=== PATIENT | female | born 1990 | race Caucasian/White ===

== ENCOUNTER → 2016-08-11 | Outpatient (CLI) | payer OTHER ==
--- NOTE | 2016-08-11 16:39 | US ---
EXAMINATION TYPE: US transvaginal DATE OF EXAM: 08/11/2016 4:25 PM COMPARISON: No previous CLINICAL HISTORY: Abnormal uterine bleeding N93.9. Tubal ligation 2 years ago, intermittent pelvic pa in since then, heavy periods, patient on control, 6, para 4, miscarriage 2 TECHNIQUE: Transvaginal (TV) Date of LMP: 2 weeks ago - patient unsure of exact date EXAM MEASUREMENTS: Uterus: 9.5 x 4.9 x 6.0 cm Endometrial Stripe: 0.8 cm Right Ovary: 3.0 x 1.9 x 2.1 cm Left Ovary: not seen TECHNOLOGIST IMPRESSION: 1. Uterus: retroverted, slightly heterogeneous without any definite lesions seen at this time 2. Endometrium: Appears slightly thickened for LMP 2 weeks ago - patient unsure of exact date, small amount of fluid in endocervical canal 3. Right Ovary: cystic adnexal mass possible ovarian cyst 4. Left Ovary: not seen due to overlying bowel gas 5. Bilateral Adnexa: right adnexa: 4.8 x 3.2 x 3.4cm cystic area - ? right ovarian cyst vs. adnexal mass 6. Posterior cul-de-sac: small amount of free fluid seen Small amount of fluid is seen in the endocervical canal on initial images. Uterus is retroverted in s hape. Uterus is heterogeneous in appearance. Endometrium is not well visualized due to heterogeneity and retroverted appearance, it is not accurately measured on current study on images saved. Tiny amou nt of free fluid is seen in pelvis, nonspecific finding on last image may be physiologic. Left ovary is not clearly identified. Right ovary is seen. Small peripheral follicles are scattered t hroughout right ovary. Adjacent to right ovary there is 4.8 cm oval anechoic lesion felt to reflect s imple small paraovarian cyst. IMPRESSION: Suboptimal study, endometrium is not well seen but but is felt possibly thickened on imag es saved. There is 4.8 cm right adnexal suspect simple paraovarian cyst noted.
--- NOTE | 2016-08-11 16:41 | XR ---
EXAMINATION TYPE: XR abdomen 2V DATE OF EXAM: 08/11/2016 4:36 PM CLINICAL HISTORY: Left lower quadrant pain. TECHNIQUE: Supine and upright views of the abdomen are obtained. COMPARISON: None. FINDINGS: Scattered gas is seen in non-distended small bowel loops. Gas and fecal material is seen in non-distended colon. Tubal ligation clips overlie the bilateral pelvis. No pneumoperitoneum is see n. There is dextroconvex scoliotic curvature centered in the mid lumbar spine. Spina bifida defect L5 level is present. Lung bases are clear. IMPRESSION: Overall nonobstructive bowel gas pattern.
== END | disposition home or self-care (01) ==
LOC: RADUSMAIN 15:55
PROVIDERS: ATTEND Obstetrics & Gynecology Obstetrics
DX: N93.9 Abnormal uterine and vaginal bleeding, unspecified (principal); R10.2 Pelvic and perineal pain; R10.9 Unspecified abdominal pain
CPT/HCPCS: 74020; 76830

== ENCOUNTER → 2016-10-21 | Outpatient (CLI) | payer OTHER ==
--- NOTE | 2016-10-21 21:38 | MR ---
EXAMINATION TYPE: MR florecita/thompson wo con DATE OF EXAM: 10/21/2016 9:25 PM COMPARISON: NONE HISTORY: spina bifida, back pain CONTRAST: Performed utilizing 0 mL intravenous MultiHance gadolinium contrast. TECHNIQUE: Multiplanar multiecho imaging on a 3.0 Jyoti magnet is performed through the cervical spin e. FINDINGS: The craniovertebral junction is normal. Vertebral body alignment is normal. Some disc de siccation is present C2-C3, C3-4 due to mild degree C4-5. Disc heights appear preserved. Alignment is normal. C7-T1: No focal disc herniation or significant disc bulge is evident. No spinal canal stenosis or n eural foraminal stenosis is present. C6-7: No focal disc herniation or significant disc bulge is evident. No spinal canal stenosis or naif ral foraminal stenosis is present. C5-6: No focal disc herniation or significant disc bulge is evident. Mild uncovertebral joint hypertr ophy is present with moderate foraminal narrowing slightly greater on the left.. C4-5: No focal disc herniation or significant disc bulge is evident. No spinal canal stenosis present . Uncovertebral joint hypertrophy is present with mild foraminal narrowing bilaterally.. C3-4: No focal disc herniation or significant disc bulge is evident. No spinal canal stenosis or naif ral foraminal stenosis is present. C2-3: No focal disc herniation or significant disc bulge is evident. No spinal canal stenosis or naif ral foraminal stenosis is present. IMPRESSIONS: 1. Mild uncovertebral joint hypertrophy with foraminal narrowing C4-5 C5-6 discussed above EXAMINATION TYPE: MR florecita/thompson wo con DATE OF EXAM: 10/21/2016 9:25 PM COMPARISON: NONE HISTORY: spina bifida, back pain CONTRAST: 0 mL intravenous MultiHance. TECHNIQUE: Multiplanar, multisequence images of the lumbar spine were acquired. FINDINGS: L5-S1: Mild disc bulge is present. No thecal sac compression is evident. No spinal canal stenosis pre sent. Mild facet hypertrophy is present. Left ligamentum flavum laxity is present. There is moderate right foraminal narrowing. Mild left foraminal narrowing is present. L4-L5: Mild disc bulge is present with anterior thecal sac contact. No AP spinal canal stenosis prese nt. Neural foramen are patent. No spinal canal stenosis. No foraminal stenosis. . L3-L4: No significant disc bulge or disc herniation. No spinal canal stenosis. No foraminal stenosi s. . L2-L3: No significant disc bulge or disc herniation. No spinal canal stenosis. Neural foramen are pa tent.. L1-L2: Broad-based disc bulge is present with mild anterior thecal sac flattening. No AP spinal canal stenosis present. There is narrowing of the disc height. Neural foramen are patent. Left paracentral endplate spurring is present with moderate anterior thecal sac compression. T12-L1: No significant disc bulge or disc herniation. No spinal canal stenosis. No foraminal stenos is. . Cord terminates at the L1-L2 level. IMPRESSION: 1. Degenerative disc changes with disc bulging L1-2. 2. Disc bulging L4-5 and L5-S1 without significant thecal sac compression. 3. Moderate bilateral foraminal narrowing L5-S1.
--- NOTE | 2016-10-21 21:41 | MR ---
EXAMINATION TYPE: MR brain wo con DATE OF EXAM: 10/21/2016 9:17 PM COMPARISON: NONE HISTORY: headaches CONTRAST: Performed utilizing 0 mL intravenous MultiHance gadolinium contrast. TECHNIQUE: Multiplanar, multiecho imaging on a 3.0 Jyoti magnet is performed through the brain. Stud y is performed within 24 hours of arrival to the hospital. The craniovertebral junction is normal. The pituitary is normal. Diffusion-weighted imaging is performed. No abnormal hyperintensity is present to suggest an acute i ntracranial infarct or acute ischemic change. Signal within the brain is normal. Ventricles and sulci are appropriate for the patient age. IMPRESSIONS: 1. Normal MRI brain
== END | disposition home or self-care (01) ==
LOC: RADMRIMAIN 20:22
PROVIDERS: ATTEND Nurse Practitioner Acute Care
DX: M99.71 Connective tissue and disc stenosis of intervertebral foramina of cervical region (principal); M99.74 Connective tissue and disc stenosis of intervertebral foramina of sacral region; M99.73 Connective tissue and disc stenosis of intervertebral foramina of lumbar region; M51.27 Other intervertebral disc displacement, lumbosacral region; M51.36 Other intervertebral disc degeneration, lumbar region; R51 Headache
CPT/HCPCS: 70551; 72141; 72148

== ENCOUNTER → 2017-08-18 | Outpatient (CLI) | payer OTHER ==
--- NOTE | 2017-08-18 16:26 | MR ---
EXAMINATION TYPE: MR lumbar spine wo con DATE OF EXAM: 08/18/2017 COMPARISON: 10/21/2016 HISTORY: Low back pain for many years, No Trauma, Mostly Affecting Right Legs TECHNIQUE: T1 and T2 axial and sagittal images of the lumbar spine are submitted. FINDINGS: There is no abnormal signal seen within the visualized spinal cord or paraspinal soft tissu es. At L1-2 there is there is broad-based disc protrusion effacing the thecal sac and resulting in mild c entral stenosis. Mild bilateral foraminal encroachment. At L2-3 there is no disc herniation or canal stenosis. No foraminal encroachment. At L3-4 there is no disc herniation or canal stenosis. No foraminal encroachment At L4-5 there is degenerative disc disease. There is circumferential disc bulging. There is facet art hropathy. Neural foramina remain patent with mild encroachment on the left. At L5-S1 there is bilateral spondylolysis and grade 1 anterolisthesis. Moderate to severe bilateral f oraminal encroachment. No Canal stenosis. IMPRESSION: 1. Bilateral spondylolysis and grade 1 anterolisthesis L5-S1 with moderate to severe bilateral forami nal encroachment but no canal stenosis. 2. Broad-based central disc protrusion at L1-L2 is stable results in effacement of thecal sac and [place] tral canal stenosis. 3. Circumferential disc bulging L4-L5 with mild left-sided foraminal encroachment secondary to facet arthropathy is stable.
== END ==
LOC: RADMRIMAIN 15:29
PROVIDERS: ATTEND Psychiatry & Neurology Neurology
DX: M54.5 Low back pain (principal); M43.07 Spondylolysis, lumbosacral region
CPT/HCPCS: 72148

== ENCOUNTER → 2020-04-28 | Outpatient (CLI) | payer OTHER ==
[2020-04-28 14:30] VITALS: BP 142/88; PULSE 85; RESP 18; TEMP 98.3; BMI 42.7
--- NOTE | 2020-04-28 14:38 | P.HPBAR ---
Bariatric H&P - History & Physicial H&P Date: 04/28/20 History & Physicial: Visit/CC: initial visit Patient initial contact: Initial weight: Initial weight in pounds: Height: 5 ft 7 in Initial BMI: Last weight: Current weight: 123.74 kg Current weight in pounds: 272.80 Current BMI: 42.7 [place] body weight (based on NIH guidelines): 61.235 kg Excess body weight loss: The patient is a 30 year-old F who presents for Bariatric Assessment. Patient presents today for initial consultation. She has interest in sleeve yesterday. Her BMI is 43. She seems an excellent understanding of the sleeve gastrectomy. Over the risks and benefits of procedure including injury to the stomach, liver and spleen. She also aware the risk of gastric staple line disruption, bleeding and scarring. Past Medical History Additional Past Medical History / Comment(s): migraines; spina bidfa History of Any Multi-Drug Resistant Organisms: None Reported Past Surgical History: Adenoidectomy, Appendectomy, Section, Tonsillectomy, Tubal Ligation Additional Past Surgical History / Comment(s): csection X 4; mass on ovary removed; extra tongue was removed at age 7; jaw surgery Past Anesthesia/Blood Transfusion Reactions: No Reported Reaction Past Psychological History: No Psychological Hx Reported Smoking Status: Never smoker Past Alcohol Use History: Rare Past Drug Use History: Marijuana Additional Drug Use History / Comment(s): tried marijuana once march 2020 Surgical - Exam Vital Signs Temp Pulse Resp BP 98.3 F 85 18 142/88 04/28/20 14:18 04/28/20 14:18 04/28/20 14:18 04/28/20 14:18 - General well developed, well nourished, no distress - Eyes PERRL - ENT normal pinna - Neck no masses - Respiratory normal expansion - Cardiovascular Rhythm: regular - Abdomen Abdomen: soft, non tender Bariatric Assessment & Plan Plan: RBC. Patient was given for EGD. Bariatric Checklist Checklist: Plan: Checklist: EGD: 1. Hiatal hernia: 2. H. Pylori: HgbA1c: Vitamin D: Smoking: Primary care physician referral: Dr. Diehl Psychiatry clearance: Cardiology clearance: Sleep study: Diet journal: VTE risk score: VTE risk level: Rehab needs at discharge:
[2020-04-28 15:23] LABS: HCT 36.9 % (34.0-46.0); HGB 12.5 gm/dL (11.4-16.0); MCH 26.9 pg (25.0-35.0); MCHC 33.8 g/dL (31.0-37.0); MCV 79.6 fL (80.0-100.0); Platelet Count 380 k/uL (150-450); RBC 4.63 m/uL (3.80-5.40); RDW 14.5 % (11.5-15.5); WBC 10.1 k/uL (3.8-10.6)
[2020-04-29 00:30] LABS: African American GFR (CKD) 135.7 (60.0-200.0); Albumin 4.4 g/dL (3.80-4.90); Albumin/Globulin Ratio 1.69 (1.60-3.17); Anion Gap 9.4 mmol/L (4.00-12.00); BUN/Creat Ratio 15.71 Ratio (12.00-20.00); Calcium 9.7 mg/dL (8.7-10.3); Carbon Dioxide 25.6 mmol/L (21.6-31.8); Globulin 2.6 g/dL (1.6-3.3); Non-African American GFR(CKD) 117.1 (60.0-200.0); Potassium 4.7 mmol/L (3.5-5.5); Total Bilirubin 0.4 mg/dL (0.2-1.2)
[2020-04-29 00:38] LABS: Folate, Serum 3.2 ng/mL
[2020-04-29 02:16] LABS: Hemoglobin A1C 5.1 % (4.0-6.0)
== END | disposition home or self-care (01) ==
LOC: BARWHC3 14:07
PROVIDERS: ATTEND Surgery
DX: E66.01 Morbid (severe) obesity due to excess calories (principal); E55.9 Vitamin D deficiency, unspecified; E88.81 Metabolic syndrome and other insulin resistance; Z68.41 Body mass index [BMI] 40.0-44.9, adult
CPT/HCPCS: 84425; 80053; 82607; 82746; 85027; 82306; 83036; 93005; 36415; G0463; 99201

== ENCOUNTER 2020-06-12 09:09 | Day surgery (SDC) | payer OTHER ==
[2020-06-09 15:14] VITALS: BMI 45.1
[~2020-06-12 09:09] MED LIST: LACTATED RINGERS 1,000 ML IV SCH; LIDOCAINE 1% (10MG/ML) FOR IV START INTRADERMA PRN
[2020-06-12 09:34] VITALS: TEMP 97
[2020-06-12] MEDS ORDERED: LIDOCAINE 1% INJ 10MG/ML (20 ML MDV) ONE (10:51)
[2020-06-12] MEDS ORDERED: PROPOFOL 10 MG/ML 20 ML VIAL IV ONE (10:51)
[2020-06-12] MEDS ORDERED: GLYCOPYRROLATE 0.2 MG/ML 2 ML VIAL ONE (10:51)
--- NOTE | 2020-06-12 10:58 | P.GSHP ---
History of Present Illness H&P Date: 06/12/20 Chief Complaint: GERD, morbid obesity The 30-year-old female underwent workup for sleeve gastrectomy. Patient presents today for EGD. She has history of GERD. Past Medical History Additional Past Medical History / Comment(s): migraines; spina bidfa History of Any Multi-Drug Resistant Organisms: None Reported Past Surgical History: Adenoidectomy, Appendectomy, Section, Ton sillectomy, Tubal Ligation Additional Past Surgical History / Comment(s): csection X 4; mass on ovary removed; extra tongue was removed at age 7; jaw surgery Past Anesthesia/Blood Transfusion Reactions: No Reported Reaction Additional Past Anesthesia/Blood Transfusion Reaction / Comment(s): no hx blood tranfusion Smoking Status: Never smoker - Past Family History Sister(s) Family Medical History: Cancer Additional Family Medical History / Comment(s): thyroid Medications and Allergies Home Medications Medication Instructions Recorded Confirmed Type EPINEPHrine (Auto Inject) [Epipen] 0.3 mg IM ONCE PRN 04/28/20 06/12/20 History Galcanezumab-Gnlm [Emgality] 120 mg SQ Q30D 04/28/20 06/12/20 History HYDROcodone/APAP 10-325MG [[place] 1 tab PO Q6HR PRN 04/28/20 06/12/20 History 10-325] Ergocalciferol [Vitamin D2 50,000 unit PO WEEKLY 04/29/20 06/12/20 History (DRISDOL)] Allergies Allergy/AdvReac Type Severity Reaction Status Date / Time pineapple Allergy Swelling Verified 06/09/20 15:09 Surgical - Exam Vital Signs Temp Pulse Resp BP Pulse Ox 97.0 F L 99 16 137/84 97 06/12/20 09:29 06/12/20 09:29 06/12/20 09:29 06/12/20 09:29 06/12/20 09:29 - General well developed, well nourished, no distress - Eyes PERRL - ENT normal pinna - Neck no masses - Respiratory normal expansion - Cardiovascular Rhythm: regular - Abdomen Abdomen: soft, non tender Assessment and Plan Assessment: GERD. Morbid obesity. We'll perform EGD.
--- NOTE | 2020-06-12 11:03 | P.OP ---
Date of Procedure: 06/12/20 Preoperative Diagnosis: GERD Postoperative Diagnosis: Antral gastritis Small hiatal hernia Procedure(s) Performed: EGD Anesthesia: MAC Surgeon: Jay White Pathology: other (Antrum) Condition: stable Disposition: PACU Description of Procedure: The patient's placed on the endoscopy table in the lateral position. She received IV sedation. The gastroscope placed oropharynx passed in the esophagus and the stomach. Scope was then placed through the pylorus. The first and second portion of the duodenum appeared normal. Scope was then brought back the antrum and this appeared mildly inflamed. A biopsies performed. Scope was unretroflexed and the remainder stomach appeared normal. The patient had a small hiatal hernia. The GE junction was at 38 7 is. The distal esophagus appeared normal. The proximal esophagus appeared normal. Scope was withdrawn for patient.
[2020-06-12 11:44] VITALS: BP 124/84; PULSE 89; RESP 16
== END 2020-06-12 12:28 | disposition home or self-care (01) ==
LOC: ORWHC2ENDO 09:09
PROVIDERS: ATTEND Surgery
DX: K29.50 Unspecified chronic gastritis without bleeding (principal); K44.9 Diaphragmatic hernia without obstruction or gangrene; K21.9 Gastro-esophageal reflux disease without esophagitis; E66.01 Morbid (severe) obesity due to excess calories; Q05.9 Spina bifida, unspecified; G43.909 Migraine, unspecified, not intractable, without status migrainosus; Z68.41 Body mass index [BMI] 40.0-44.9, adult; Z90.89 Acquired absence of other organs; Z98.891 History of uterine scar from previous surgery; Z98.51 Tubal ligation status; Z98.890 Other specified postprocedural states; Z79.899 Other long term (current) drug therapy; Z91.018 Allergy to other foods; Z80.8 Family history of malignant neoplasm of other organs or systems
CPT/HCPCS: 81025; 88305; 43239; J2001; J2704

== ENCOUNTER → 2020-12-10 | Outpatient (CLI) | payer OTHER ==
[2020-12-10 17:06] VITALS: BP 136/95; PULSE 114; RESP 16; TEMP 99.4; BMI 40.5
--- NOTE | 2020-12-10 17:18 | P.HPBAR ---
Bariatric H&P - History & Physicial H&P Date: 12/10/20 History & Physicial: Visit/CC: trans from [facility] Patient initial contact: Initial weight: 117.48 kg Initial weight in pounds: 259.00 Height: 5 ft 7 in Initial BMI: 40.5 Last weight: Current weight: 117.48 kg Current weight in pounds: 259.00 Current BMI: 40.5 [place] body weight (based on NIH guidelines): 61.235 kg Excess body weight loss: 0.0% The patient is a 30 year-old F who presents for Bariatric Assessment. She is looking for the sleeve. Highest weight of 300 pounds. She has tried prescriptions medications for weight loss. She has stopped junk food, charting, keto diet, weight watchers. She lost weight with medications of 75 pounds. No GERD. No stomach or esophageal. She reports no family history of morbid obesity. She reports lower back pain. She has spina bifida. She has hip pain and sees a chiropractor. She has both knee pain. She has tatto along the left arm. She had CT at the [facility]. She ECHO. Must check old labs. EKG [facility]. Past Medical History Additional Past Medical History / Comment(s): migraines; spina bidfa History of Any Multi-Drug Resistant Organisms: None Reported Past Surgical History: Adenoidectomy, Appendectomy, Section, Tonsillectomy, Tubal Ligation Additional Past Surgical History / Comment(s): csection X 4; mass on ovary removed; extra tongue was removed at age 7; jaw surgery Past Anesthesia/Blood Transfusion Reactions: No Reported Reaction Additional Past Anesthesia/Blood Transfusion Reaction / Comm: no hx blood tranfusion Past Psychological History: No Psychological Hx Reported Smoking Status: Never smoker Past Alcohol Use History: Rare Past Drug Use History: None Reported Additional Drug Use History / Comment(s): tried marijuana once march 2020 - Past Family History Sister(s) Family Medical History: Cancer Additional Family Medical History / Comment(s): thyroid Surgical - Exam Vital Signs Temp Pulse Resp BP 99.4 F 114 H 16 136/95 12/10/20 16:54 12/10/20 16:54 12/10/20 16:54 12/10/20 16:54 Bariatric Checklist Checklist: Plan: Checklist: EGD: 1. Hiatal hernia: 2. H. Pylori: HgbA1c: Vitamin D: Smoking: Primary care physician referral: Dr. Diehl Psychiatry clearance: Cardiology clearance: Sleep study: Diet journal: VTE risk score: VTE risk level: Rehab needs at discharge:
== END | disposition home or self-care (01) ==
LOC: BARWHC3 15:26
PROVIDERS: ATTEND Surgery Plastic and Reconstructive Surgery
DX: E66.01 Morbid (severe) obesity due to excess calories (principal); Z68.41 Body mass index [BMI] 40.0-44.9, adult
CPT/HCPCS: 99211

== ENCOUNTER → 2020-12-16 | Outpatient (CLI) | payer OTHER ==
[2020-12-16 16:15] LABS: Partial Thromboplastin Time 24.1 sec (22.0-30.0); Prothrombin Time 10.4 sec (9.0-12.0)
[2020-12-16 23:38] LABS: HCT 36.8 % (37.2-46.3); HGB 12.6 g/dL (12.0-15.0); MCH 27.7 pg (27.0-32.0); MCHC 34.2 g/dL (32.0-37.0); MCV 80.9 fL (80.0-97.0); Mean Platelet Volume 11.3 fL (9.5-12.2); Platelet Count 418 X 10*3/uL (140-440); RBC 4.55 X 10*6/uL (4.10-5.20); RDW 14.1 % (11.5-14.5); WBC 9.74 X 10*3/uL (4.50-10.00)
[2020-12-16 23:58] LABS: Hemoglobin A1C 4.9 % (4.0-6.0)
[2020-12-17 05:55] LABS: Ferritin 91.1 ng/mL (10.0-291.0)
[2020-12-17 05:56] LABS: Folate, Serum 7.2 ng/mL
[2020-12-17 06:39] LABS: % Iron Saturation 11.53 (12.00-45.00); African American GFR (CKD) 115.5 (60.0-200.0); Albumin 4.7 g/dL (3.80-4.90); Albumin/Globulin Ratio 1.47 (1.60-3.17); Anion Gap 14.9 mmol/L (4.00-12.00); BUN/Creat Ratio 11.25 Ratio (12.00-20.00); Carbon Dioxide 20.1 mmol/L (21.6-31.8); Chol/HDL Ratio 4.13; Globulin 3.2 g/dL (1.6-3.3); LDL Cholesterol,Calculated 126.2 mg/dL (0.0-131.0); Magnesium 1.9 mg/dL (1.5-2.4); Non-African American GFR(CKD) 99.6 (60.0-200.0); Phosphorus 3.5 mg/dL (2.4-5.1); Potassium 4.1 mmol/L (3.5-5.5); Total Bilirubin 0.7 mg/dL (0.3-1.2); Total Protein 7.9 g/dL (6.2-8.2); VLDL Calculation 20.8 mg/dL (5.00-40.00)
[2020-12-17 13:32] LABS: Anabasine Urine <2.0 ng/mL (<2.0)
[2020-12-17 14:22] LABS: Zinc, Serum 68 ug/dL (60-130)
[2020-12-18 06:33] LABS: Vit B1(Thiamine) 61 ug/L (38-122)
[2020-12-19 06:03] LABS: Vitamin A 38 ug/dL (38-106)
== END | disposition home or self-care (01) ==
LOC: LABWHC1 15:21
PROVIDERS: ATTEND Surgery Plastic and Reconstructive Surgery
DX: D50.8 Other iron deficiency anemias (principal); K90.89 Other intestinal malabsorption; E55.9 Vitamin D deficiency, unspecified; K74.1 Hepatic sclerosis; N19 Unspecified kidney failure; K50.90 Crohn's disease, unspecified, without complications; E89.1 Postprocedural hypoinsulinemia; Z71.51 Drug abuse counseling and surveillance of drug abuser
CPT/HCPCS: 84255; 84134; 84425; 80061; 80053; 82607; 82728; 82525; 82746; 83540; 83550; 83735; 84100; 84443; 84590; 84630; 85027; 85610; 85730; 82306; 83970; 83036; 80307; 36415; G0480; G0482; 80323

== ENCOUNTER → 2020-12-29 | Outpatient (CLI) | payer OTHER ==
--- NOTE | 2020-12-29 10:49 | FL ---
EXAMINATION TYPE: FL barium swallow DATE OF EXAM: 12/29/2020 CLINICAL INDICATION: 30-year-old female R13.10, dysphagia, prebariatric surgery. Assess for hiatal he rnia. COMPARISON: Correlation CT 05/06/2017 Total Fluoroscopy Time: 1 minute 40 seconds Total images: 38 FINDINGS: The swallowing mechanism is normal and hypopharyngeal anatomy is preserved. The cervical and thoracic portions have a normal course and caliber and normal motility. The mucosa is normal and no persistent filling defect is encountered. Valsalva and positional maneuvers were utilized. Gastroesophageal reflux could not be elicited. No si zable hiatal hernia was seen IMPRESSION: Unremarkable esophagram. No sizable hiatal hernia could be identified. Valsalva and positional maneuv ers were utilized.
== END | disposition home or self-care (01) ==
LOC: RADUSWWP 09:09
PROVIDERS: ATTEND Surgery Plastic and Reconstructive Surgery
DX: R13.10 Dysphagia, unspecified (principal); R10.13 Epigastric pain
CPT/HCPCS: 74220

== ENCOUNTER → 2021-01-02 | Outpatient (CLI) | payer OTHER ==
--- NOTE | 2021-01-02 10:09 | NM ---
EXAMINATION TYPE: NM hepatobiliary w EF DATE OF EXAM: 01/02/2021 COMPARISON: NONE INDICATION: Nausea TECHNIQUE: After the intravenous administration of 4.75 mCi Tc 99m Mebrofenin hepatobiliary scintigra phy is performed. Images were obtained immediately post injection. FINDINGS: There is prompt uptake and excretion of radiotracer by the liver. Extrahepatic ducts are identified at 2 minutes. The gallbladder is visualized within 2 minutes. Small bowel activity is noted within minutes. At one hour 8 ounces of oral ensure plus is given to mimic CCK and gallbladder ejection fraction is c alculated at 66 %, which is in the normal range. (Normal >35% and <80%.). IMPRESSION: 1. Normal hepatobiliary scan
== END | disposition home or self-care (01) ==
LOC: RADNMMAIN 07:40
PROVIDERS: ATTEND Surgery Plastic and Reconstructive Surgery
DX: R10.13 Epigastric pain (principal); R13.10 Dysphagia, unspecified
CPT/HCPCS: 78226; A9537

== ENCOUNTER → 2021-01-02 | Outpatient (CLI) | payer OTHER ==
--- NOTE | 2021-01-02 11:27 | US ---
EXAMINATION TYPE: US gallbladder DATE OF EXAM: 01/02/2021 COMPARISON: CT 05/06/2017 CLINICAL HISTORY: R10.13 ABD PAIN. Difficult exam due to patient body habitus and overlying bowel gas EXAM MEASUREMENTS: Liver Length: 17.8 cm Gallbladder Wall: 0.2 cm CBD: 0.4 cm Right Kidney: 11.9 x 4.5 x 4.3 cm Pancreas: Obscured by bowel gas Liver: Diffuse diminished echogenicity, hepatomegaly is present. Mild fatty infiltration. Gallbladder: wnl Evidence for sonographic Ely's sign: No CBD: wnl as visualized Right Kidney: No hydronephrosis or masses seen IMPRESSION: 1. Hepatomegaly with mild fatty infiltration.
== END | disposition home or self-care (01) ==
LOC: RADUSWWP 07:07
PROVIDERS: ATTEND Surgery Plastic and Reconstructive Surgery
DX: R16.0 Hepatomegaly, not elsewhere classified (principal); R10.13 Epigastric pain; R13.10 Dysphagia, unspecified
CPT/HCPCS: 76705

== ENCOUNTER → 2021-01-07 | Outpatient (CLI) | payer OTHER ==
--- NOTE | 2021-01-07 16:37 | P.PN ---
Subjective Progress Note Date: 01/07/21 She has persistent right upper quadrant pain. Clinical cholecystitis present. Plan for cholecystectomy. Labs reviewed.
[2021-01-07 16:50] VITALS: BP 139/87; PULSE 108; RESP 18; TEMP 97.8; BMI 40.5
== END | disposition home or self-care (01) ==
LOC: BARWHC3 16:26
PROVIDERS: ATTEND Surgery Plastic and Reconstructive Surgery
DX: E66.01 Morbid (severe) obesity due to excess calories (principal); Z68.41 Body mass index [BMI] 40.0-44.9, adult
CPT/HCPCS: 99211

== ENCOUNTER 2021-01-09 10:56 | Day surgery (SDC) | payer OTHER ==
[2021-01-08 11:05] VITALS: BMI 40.5
--- NOTE | 2021-01-09 07:46 | P.GSHP ---
History of Present Illness H&P Date: 01/09/21 CHIEF COMPLAINT: Cholecystitis HISTORY OF PRESENT ILLNESS: The patient is a 30-year-old female who presents with moderate to severe right upper quadrant abdominal pain for the last 3 days. She underwent diagnostic studies for her gallbladder. She presents with cholecystitis. Now she presents for surgical intervention. PAST MEDICAL HISTORY: Please see list PAST SURGICAL HISTORY: Please see list MEDICATIONS: Please see list ALLERGIES: Please see list SOCIAL HISTORY: Please see list FAMILY HISTORY: Please see list REVIEW OF ORGAN SYSTEMS: CONSTITUTIONAL: No reports of fevers or chills. HEENT: Denies any troubles with the vision or hearing. ENDOCRINE: No reports of hypothyroidism. No diabetes. RESPIRATORY: No recent pneumonias. CARDIOVASCULAR: Denies chest pain or palpitations GI: No blood in stools or constipation. MUSCULOSKELETAL: Has occasional joint pain including back pain. NEURO: No seizure disorders or headaches. No recent stroke. PSYCH: No depression or suicidal ideation. GENITOURINARY: No active blood in urine. No urinary hesitancy. HEMATOLOGIC: No personal or family history of DVTs or pulmonary emboli. SKIN: No skin cancer. PHYSICAL EXAM: VITAL SIGNS: Afebrile vital signs stable GENERAL: Well-developed pleasant in no acute distress. HEENT: No scleral icterus. Extraocular movements grossly intact. Moist buccal mucosa. NECK: Supple without lymphadenopathy. CHEST: Unlabored respirations. Equal bilateral excursions. CARDIOVASCULAR: Regular rate regular rhythm rhythm. Distal 2+ pulses. ABDOMEN: Soft, nondistended. Tender along the epigastrium and right upper quadrant. MUSCULOSKELETAL: No clubbing, cyanosis, or edema. NEURO: Cranial nerves II to XII within normal limits. No focal or lateralizing signs. PSYCH: Alert and oriented to person, place and time. SKIN: Well-perfused good skin turgor. ASSESSMENT: 1. Epigastric and right upper quadrant abdominal pain 2. Chronic cholecystitis 3. Symptomatic gallstones. PLAN: 1. Will need a robotic cholecystectomy possible open. Benefits and risks were described. 2. Heparin for DVT prophylaxis 5000 units. 3. Antibiotic prophylaxis. 4. She is elevated first with morbid obesity, BMI over 40 Past Medical History Past Medical History: Hypertension Additional Past Medical History / Comment(s): migraines; spina bifida. c/o abd pain, [place] History of Any Multi-Drug Resistant Organisms: None Reported Past Surgical History: Adenoidectomy, Appendectomy, Section, Tonsillectomy, Tubal Ligation Additional Past Surgical History / Comment(s): C-S X 4; mass on ovary removed; extra tongue was removed at age 7; jaw surgery. EGD Past Anesthesia/Blood Transfusion Reactions: No Reported Reaction Additional Past Anesthesia/Blood Transfusion Reaction / Comment(s): no hx blood tranfusion Smoking Status: Never smoker - Past Family History Sister(s) Family Medical History: Cancer Additional Family Medical History / Comment(s): thyroid Medications and Allergies Home Medications Medication Instructions Recorded Confirmed Type EPINEPHrine (Auto Inject) [Epipen] 0.3 mg IM ONCE PRN 04/28/20 01/08/21 History HYDROcodone/APAP 10-325MG [[place] 1 tab PO Q6HR PRN 04/28/20 01/08/21 History 10-325] Ergocalciferol [Vitamin D2 50,000 unit PO WEEKLY 04/29/20 01/08/21 History (DRISDOL)] Erenumab-Aooe [Aimovig 70 mg SQ QMONTHLY 12/10/20 01/08/21 History Autoinjector] Metoprolol Succinate (ER) [Toprol 25 mg PO BID 12/10/20 01/08/21 History Xl] Ibuprofen [Motrin Ib] 400 mg PO Q8H PRN 01/08/21 01/08/21 History Allergies Allergy/AdvReac Type Severity Reaction Status Date / Time pineapple Allergy Swelling Verified 01/08/21 10:48
[~2021-01-09 10:56] MED LIST changes: +ACETAMINOPHEN TAB 500 MG TAB PO PRN; +DEXAMETHASONE SOD PHOSPHATE 4 MG/ML 1 ML VIAL IV PRN; +GABAPENTIN 300 MG CAP PO PRN; +HEPARIN SODIUM,PORCINE/PF 5,000 UNIT/0.5 ML SYRINGE SQ PRN; +INDOCYANINE GREEN 25 MG VIAL IV PRN; -LACTATED RINGERS 1,000 ML IV SCH; -LIDOCAINE 1% (10MG/ML) FOR IV START INTRADERMA PRN; +MELOXICAM 7.5 MG TAB PO PRN
[2021-01-09] MEDS ORDERED: LACTATED RINGERS 1,000 ML IV ONE ×3 (11:22→15:57)
[2021-01-09] MEDS ORDERED: LIDOCAINE 1% (10MG/ML) FOR IV START INTRADERMA ONE (11:23)
[2021-01-09] MEDS ORDERED: ONDANSETRON 4 MG/2 ML VIAL ONE (11:26)
[2021-01-09] MEDS ORDERED: fentaNYL (PF) 50 MCG/ML 2 ML AMP ONE (13:20)
[2021-01-09] MEDS ORDERED: NEOSTIGMINE 1 MG/ML 10 ML VIAL ONE (13:20)
[2021-01-09] MEDS ORDERED: INDOCYANINE GREEN 25 MG VIAL IV ONE (13:20)
[2021-01-09] MEDS ORDERED: MIDAZOLAM 2 MG/2 ML VIAL ONE (13:20)
[2021-01-09] MEDS ORDERED: SUCCINYLCHOLINE CHLORIDE 100 MG/5 ML SYR IV ONE (13:20)
[2021-01-09] MEDS ORDERED: ROCURONIUM 10 MG/ML (5 ML VIAL) IV ONE (13:20)
[2021-01-09] MEDS ORDERED: PROPOFOL 10 MG/ML 20 ML VIAL IV ONE (13:20)
[2021-01-09] MEDS ORDERED: LIDOCAINE 1% INJ 10MG/ML (20 ML MDV) ONE (13:20)
[2021-01-09] MEDS ORDERED: GLYCOPYRROLATE 0.2 MG/ML 2 ML VIAL ONE (13:20)
[2021-01-09] MEDS ORDERED: LIDOCAINE 1%-EPI 1:100,000 20 ML VIAL SQ ONE (13:50)
[2021-01-09] MEDS ORDERED: KETOROLAC 15 MG/ML 1 ML VIAL ONE (15:08)
[2021-01-09] MEDS ORDERED: PIPERACILLIN-TAZOBACTAM 3.375 GM in SODIUM CHLORIDE 0.9% 100 ML IVPB STA (15:11)
[2021-01-09 15:16] VITALS: TEMP 98
[2021-01-09] MEDS ORDERED: HYDROmorphone 0.5 MG/0.5 ML SYRINGE IVP ONE ×5 (15:21→16:03)
[2021-01-09] MEDS ORDERED: KETOROLAC 15 MG/ML 1 ML VIAL IVP ONE (15:22)
--- NOTE | 2021-01-09 15:22 | P.OP ---
Date of Procedure: 01/09/21 Description of Procedure: SURGEON: YESSY ANGULO MD PREOPERATIVE DIAGNOSES: 1. Cholecystitis 2. Intractable right upper quadrant abdominal pain 3. Hypertensive heart disease 4. Morbid obesity due to excess calories, BMI 39.7 5. Migraines 6. Spina bifida POSTOPERATIVE DIAGNOSES: 1. Cholecystitis 2. Intractable right upper quadrant abdominal pain 3. Hypertensive heart disease 4. Morbid obesity due to excess calories, BMI 39.7 5. Migraines 6. Spina bifida 7. Right upper quadrant peritoneal adhesions OPERATION: 1. Robotic-assisted da Eri Xi laparoscopic lysis of adhesions 2. Robotic-assisted da Eri Xi laparoscopic cholecystectomy, multiport with FIREFLY ESTIMATED BLOOD LOSS: 5 mL. SPECIMENS REMOVED: Gallbladder. COMPLICATIONS: None. OPERATIVE FINDINGS: 1. Cholecystitis with pericholecystic peritoneal adhesions 2. Pelvic adhesions lower midline 3. Moderate intrahepatic gallbladder adding complexity to the case requiring dome down technique INDICATIONS: The patient is a 30 year-old female who presents with intractable epigastric right upper quadrant pain. Clinical findings consistent with cholecystitis. Surgical intervention with cholecystectomy was described. Robotic assisted laparoscopic approach was described. Benefits and risks of the procedure including but not limited to bleeding, infection, injury to the biliary tree was reviewed. Informed consent was obtained. DESCRIPTION OF PROCEDURE: Patient was brought to the operating room, placed in supine position. After general induction, the abdomen had been prepped and draped in standard sterile fashion. The robotic da Eri XI system was primed. After a timeout protocol was performed, the patient had been prepped and draped in standard sterile fashion. The patient was injected with indocyanine green. A 5 mm 0 degrees laparoscopic trocar entry was performed along the left upper quadrant. The abdomen insufflated to 15 mmHg pressure which was tolerated well. Diagnostic laparoscopy demonstrated no injury to bowel viscera or mesentery. The liver surface was unremarkable. A moderately distended gallbladder was identified adding complexity to the case. Next, two 8 mm robotic ports were placed along the right upper abdomen. The camera 8-mm port was maintained along the epigastrium. Another 8 mm port was placed along the left upper abdominal wall after exchanging the 5 mm port. Please note that the ports were placed at least 10 to 15 cm away from the target anatomy of the gallbladder. The robot was docked along the left lateral abdomen. The patient was repositioned in reverse Trendelenburg position with the right side up. Using a grasper for arm 3, a grasper for arm 4, including hook cautery for arm 1, the robotic system was docked and primed as described. Instruments were interchanged by the ob gyn physician assistant including hook cautery, Bovie cautery and clip appliers. I had sat at the console. The gallbladder was reflected towards the dome of the liver. The gallbladder was moderately distended and intrahepatic adding complexity to the case. Due to moderate distention of the gallbladder including intrahepatic features, dome down technique was performed removing the gallbladder from the hepatic fossa starting from the fundus towards the infundibulum. Peritoneal adhesions pericholecystic involving body and infundibulum were lysed using hook cautery. Using a sponge, the liver was reflected towards the diaphragm and starting at the gallbladder fundus, hook cautery was used to find the avascular plane between the liver and the gallbladder. As the gallbladder was dissected from the hepatic fossa, hemostasis was checked using vessel sealer along the posterior gallbladder. Next, indocyanine green was used to confirm the common bile duct as well as cystic duct. The cystic duct was short and dissection was performed at the junction of the cystic duct and infundibulum. The infundibulum was retracted laterally to expose the cystic duct away from the common bile duct. The cystic duct was dissected free from its surrounding tissue. FIREFLY was used to identify the cystic structures. A critical view of safety was obtained. Large PLASTIC clips were used throughout the entire case. Using a clip pre sales network engineer, a clip was placed at the junction of the infundibulum and cystic duct. The cystic duct was divided using vessel sealer. Next, the cystic artery was divided using vessel sealer. Electro-Bovie cautery and vessel sealer was used to remove the gallbladder with minimal decompression. The abdomen was cleaned with 4 x 4 sponges. Hemostasis was checked and found to be adequate. The robot was undocked. I re-scrubbed into the case. A 10 mm Endo Catch bag was used to remove the gallbladder in total via the left upper quadrant incision after widening the incision. The specimen was removed from the abdominal cavity. All pneumoperitoneum instruments were evacuated from the abdominal cavity. The incisions were cleansed using dilute hydrogen peroxide. The incisions were reapproximated using 4-0 Monocryl in an interrupted subcuticular fashion. Please note along the trocar sites, local anesthetic was placed as a field block prior to insertion of all instruments. Liquid glue was applied to the skin. At the end of the procedure needle, sponge, and instrument count had been verified correct by the traffic analysis technician. The patient was transferred to postanesthesia care unit in stable condition. Intraoperative films were shared with the patient's family who were pleased with the level of care. Plan - Discharge Summary Discharge Rx Participant: Yes New Discharge Prescriptions: New Amoxic-Pot Clav 875-125Mg [Augmentin 875-125] 1 each PO Q12HR #10 tab Ibuprofen [Motrin] 600 mg PO Q8HR PRN #30 tab PRN Reason: Pain Continue HYDROcodone/APAP 10-325MG [[place] 10-325] 1 tab PO Q6HR PRN PRN Reason: Pain EPINEPHrine (Auto Inject) [Epipen] 0.3 mg IM ONCE PRN PRN Reason: Anaphylaxis Ergocalciferol [Vitamin D2 (DRISDOL)] 50,000 unit PO WEEKLY Metoprolol Succinate (ER) [Toprol XL] 25 mg PO BID Erenumab-Aooe [Aimovig Autoinjector] 70 mg SQ QMONTHLY Discontinued Ibuprofen [Motrin Ib] 400 mg PO Q8H PRN PRN Reason: Pain Discharge Medication List EPINEPHrine (Auto Inject) [Epipen] 0.3 mg IM ONCE PRN 04/28/20 [History] HYDROcodone/APAP 10-325MG [[place] 10-325] 1 tab PO Q6HR PRN 04/28/20 [History] Ergocalciferol [Vitamin D2 (DRISDOL)] 50,000 unit PO WEEKLY 04/29/20 [History] Erenumab-Aooe [Aimovig Autoinjector] 70 mg SQ QMONTHLY 12/10/20 [History] Metoprolol Succinate (ER) [Toprol XL] 25 mg PO BID 12/10/20 [History] Amoxic-Pot Clav 875-125Mg [Augmentin 875-125] 1 each PO Q12HR #10 tab 01/09/21 [Rx] Ibuprofen [Motrin] 600 mg PO Q8HR PRN #30 tab 01/09/21 [Rx] [facility]ment(s[facility] [place] [place] [facility] [place] Patient Instructions/Handouts: Laparoscopic Cholecystectomy (DC), Low Fat Diet (DC) Activity/Diet/Wound Care/Special Instructions: Recommend low-fat diet for the next 2 days. No lifting over 10 pounds in 2 weeks until Jan 23. May shower. No bath tub soaks for two weeks until Jan 23 Diet as tolerated. Use Tylenol, simethicone and ibuprofen or Aleve scheduled for the next 24-48 hours for best pain relief. Use ice along incisions for today to prevent swelling. Discharge Disposition: HOME SELF-CARE
[2021-01-09 15:27] VITALS: RESP 16
[2021-01-09] MEDS: LACTATED RINGERS 1,000 ML IV ONE ×2 (15:57→16:20)
[2021-01-09 16:58] VITALS: BP 137/89; PULSE 99
[2021-01-09] MEDS ORDERED: SIMETHICONE 40 MG/0.6 ML DROPS 2,000 MG/30 ML BOTTLE PO ONE (17:05)
== END 2021-01-09 17:32 | disposition home or self-care (01) ==
LOC: OR 10:56
PROVIDERS: ATTEND Surgery Plastic and Reconstructive Surgery
DX: K81.1 Chronic cholecystitis (principal); I11.9 Hypertensive heart disease without heart failure; E66.01 Morbid (severe) obesity due to excess calories; K66.0 Peritoneal adhesions (postprocedural) (postinfection); Q05.9 Spina bifida, unspecified; Z68.39 Body mass index [BMI] 39.0-39.9, adult; G43.909 Migraine, unspecified, not intractable, without status migrainosus; M54.9 Dorsalgia, unspecified
CPT/HCPCS: 47563; 81025; 88304; J2250; J1100; J2710; J0690; J2001; J3010; J1885; J0330; J2704; J1170; J1644

== ENCOUNTER → 2021-01-14 | Outpatient (CLI) | payer OTHER ==
[2021-01-14 15:12] VITALS: BP 131/83; PULSE 86; RESP 18; TEMP 98.8; BMI 39.7
--- NOTE | 2021-01-14 15:36 | P.PN ---
Subjective Progress Note Date: 01/14/21 She is waiting for psych evaluation. She is status post cholecystectomy. Barium swallow reviewed...no hiatal hernia. All incisions ok. Recommend deep breath for atelectasis. Recommend consent form and review of sleeve gastrectomy. Objective - Vital Signs Vital signs: Vital Signs Temp 98.8 F 01/14/21 15:05 Pulse 86 01/14/21 15:05 Resp 18 01/14/21 15:05 BP 131/83 01/14/21 15:05 Pulse Ox Intake & Output 01/13/21 01/14/21 01/14/21 18:59 06:59 18:59 Weight 115.212 kg
--- NOTE | 2021-01-14 15:37 | P.PN ---
Progress Note - Text Progress Note Date: 01/14/21 To whom it may concern: Razia Lilly is under my surgical care. She may return to work without restrictions, January 15, 2021. Regards, Magy Park MD, FACS
== END | disposition home or self-care (01) ==
LOC: BARWHC3 14:05
PROVIDERS: ATTEND Surgery Plastic and Reconstructive Surgery
DX: E66.01 Morbid (severe) obesity due to excess calories (principal); Z68.39 Body mass index [BMI] 39.0-39.9, adult
CPT/HCPCS: 99211

== ENCOUNTER → 2021-02-23 | Outpatient (CLI) | payer OTHER ==
[2021-02-23 14:31] VITALS: BMI 42.0
== END ==
LOC: BARWHC3 08:46
PROVIDERS: ATTEND Surgery Plastic and Reconstructive Surgery
DX: E66.01 Morbid (severe) obesity due to excess calories (principal); Z71.3 Dietary counseling and surveillance; Z68.41 Body mass index [BMI] 40.0-44.9, adult; Z91.018 Allergy to other foods
CPT/HCPCS: 97804

== ENCOUNTER → 2021-03-06 | Outpatient (CLI) | payer OTHER ==
[2021-03-06 18:48] LABS: Basophils # (A) 0.06 X 10*3/uL (0.00-0.10); Basophils % (A) 0.7 %; Eosinophils # (A) 1.21 X 10*3/uL (0.04-0.35); Eosinophils % (A) 14.5 %; HCT 38.1 % (37.2-46.3); HGB 12.2 g/dL (12.0-15.0); Lymphocytes # (A) 2.07 X 10*3/uL (0.90-5.00); Lymphocytes % (A) 24.9 %; MCH 26.3 pg (27.0-32.0); MCV 82.3 fL (80.0-97.0); Mean Platelet Volume 10.8 fL (9.5-12.2); Monocytes # (A) 0.29 X 10*3/uL (0.20-1.00); Monocytes % (A) 3.5 %; Neutrophils # (A) 4.67 X 10*3/uL (1.80-7.70); Neutrophils % (A) 56.2 %; Platelet Count 361 X 10*3/uL (140-440); RBC 4.63 X 10*6/uL (4.10-5.20); RDW 13.9 % (11.5-14.5); WBC 8.32 X 10*3/uL (4.50-10.00)
[2021-03-06 20:27] LABS: Erythrocyte Sedimentation Rate 46 mm/Hr (0-20)
[2021-03-06 22:54] LABS: African American GFR (CKD) 113.2 (60.0-200.0); Albumin 4.3 g/dL (3.8-4.9); Albumin/Globulin Ratio 1.48 (1.60-3.17); Anion Gap 12.9 mmol/L (4.00-12.00); BUN/Creat Ratio 11.32 Ratio (12.00-20.00); Blood Urea Nitrogen 9.2 mg/dL (9.0-27.0); C Reactive Protein 1.4 mg/dL (0.00-0.80); Calcium 9.5 mg/dL (8.7-10.3); Carbon Dioxide 23.2 mmol/L (21.6-31.8); Globulin 2.9 g/dL (1.6-3.3); Non-African American GFR(CKD) 97.7 (60.0-200.0); Potassium 4.2 mmol/L (3.5-5.5); Total Bilirubin 0.5 mg/dL (0.30-1.20); Total Protein 7.2 g/dL (6.2-8.2)
== END | disposition home or self-care (01) ==
LOC: LABWHC1 11:19
PROVIDERS: ATTEND Internal Medicine
DX: L50.9 Urticaria, unspecified (principal)
CPT/HCPCS: 36415; 80053; 84443; 85025; 85652; 86038; 86140; 86160

== ENCOUNTER → 2021-03-31 | Outpatient (CLI) | payer OTHER ==
--- NOTE | 2021-03-31 15:19 | XR ---
EXAMINATION TYPE: XR chest 1V DATE OF EXAM: 03/31/2021 COMPARISON: None INDICATION: Sleep apnea TECHNIQUE: Single frontal view of the chest is obtained. FINDINGS: The heart size is normal. The pulmonary vasculature is normal. The lungs are clear. IMPRESSION: 1. No acute pulmonary process.
== END | disposition home or self-care (01) ==
LOC: RADXRMAIN 15:05
PROVIDERS: ATTEND Surgery Plastic and Reconstructive Surgery
DX: G47.30 Sleep apnea, unspecified (principal)
CPT/HCPCS: 71045; 83013

== ENCOUNTER → 2021-04-27 | Outpatient (CLI) | payer OTHER | END | disposition home or self-care (01) | LOC: LABWHC1 09:28 | PROVIDERS: ATTEND Emergency Medicine | DX: Z20.822 Contact with and (suspected) exposure to COVID-19 (principal) | CPT/HCPCS: 87635 ==

== ENCOUNTER → 2021-04-28 | Outpatient (CLI) | payer OTHER ==
[2021-04-28 10:02] LABS: Basophils # (A) 0.1 k/uL (0-0.2); Basophils % (A) 1 %; Eosinophils # (A) 1.4 k/uL (0-0.7); Eosinophils % (A) 16 %; HCT 38.4 % (34.0-46.0); HGB 12.8 gm/dL (11.4-16.0); Lymphocytes # (A) 2.4 k/uL (1.0-4.8); Lymphocytes % (A) 28 %; MCH 26.7 pg (25.0-35.0); MCHC 33.3 g/dL (31.0-37.0); Mean Platelet Volume 8.3; Monocytes # (A) 0.3 k/uL (0-1.0); Monocytes % (A) 3 %; Neutrophils # (A) 4.4 k/uL (1.3-7.7); Neutrophils % (A) 51 %; Platelet Count 341 k/uL (150-450); RDW 14.7 % (11.5-15.5); WBC 8.6 k/uL (3.8-10.6)
[2021-04-28 10:09] LABS: Glucose 114 mg/dL (74-99); Potassium 4.8 mmol/L (3.5-5.1); Sodium 136 mmol/L (137-145)
[2021-04-28 10:10] LABS: ALT 29 U/L (4-34); AST 30 U/L (14-36); African American GFR (CKD) >90 (>60 ml/min/1.73 sqM); Albumin 4.3 g/dL (3.5-5.0); Alkaline Phosphatase 61 U/L (38-126); Anion Gap 8 mmol/L; Blood Urea Nitrogen 13 mg/dL (7-17); Calcium 9.4 mg/dL (8.4-10.2); Carbon Dioxide 25 mmol/L (22-30); Chloride 103 mmol/L (98-107); Non-African American GFR(CKD) >90 (>60 ml/min/1.73 sqM); Total Bilirubin 0.6 mg/dL (0.2-1.3); Total Protein 7.6 g/dL (6.3-8.2)
== END | disposition home or self-care (01) ==
LOC: LABWHC1 08:52
PROVIDERS: ATTEND Surgery Plastic and Reconstructive Surgery
DX: Z01.812 Encounter for preprocedural laboratory examination (principal)
CPT/HCPCS: 36415; 80053; 85025; 93005

== ENCOUNTER 2021-05-04 07:30 | Inpatient (IN) | payer OTHER ==
[~2021-05-04 07:30] MED LIST changes: -ACETAMINOPHEN TAB 500 MG TAB PO PRN; +CHLORHEXIDINE GLUCONATE 15 ML CUP MUCOUS MEM PRN; +DEXAMETHASONE SOD PHOSPHATE 4 MG/ML 1 ML VIAL IV ONE; -DEXAMETHASONE SOD PHOSPHATE 4 MG/ML 1 ML VIAL IV PRN; +ENOXAPARIN 40 MG/0.4 ML SYRINGE SQ PRN; -GABAPENTIN 300 MG CAP PO PRN; -HEPARIN SODIUM,PORCINE/PF 5,000 UNIT/0.5 ML SYRINGE SQ PRN; -INDOCYANINE GREEN 25 MG VIAL IV PRN; +LACTATED RINGERS 1,000 ML IV SCH; -MELOXICAM 7.5 MG TAB PO PRN; +ONDANSETRON 4 MG/2 ML VIAL IVP ONE; +PANTOPRAZOLE 40 MG/10 ML VIAL IVP PRN; +ceFAZolin 3 GM in SODIUM CHLORIDE 0.9% 100 ML IVPB PRN
--- NOTE | 2021-05-04 08:12 | P.GSHP ---
History of Present Illness H&P Date: 05/04/21 CHIEF COMPLAINT: Morbid obesity. HISTORY OF PRESENT ILLNESS: Razia Lilly is a 30-year-old female who comes with lifelong morbid obesity. She is status post cholecystectomy, 01/09/21. She is waiting for psych evaluation. She reports not deep breathing for risk for atelectasis. At height of 5 feet 7 inches, her ideal body weight is 140 pounds. Her highest weight is 300 pounds with body mass index 47.1. She comes in 253 pounds from 258 pounds, 1 week ago. Her body mass index is 39.8. She is 95 pounds overweight. PAST MEDICAL HISTORY: 1. Morbid obesity due to excess calories 2. Body mass index of 47.1, initial 3. Hypertensive heart disease. 4. Migraines 5. Spina Bifida 6. Osteoarthritis of the hips 7. Osteoarthritis of the knees. PAST SURGICAL HISTORY: 1. x 4 2. Adenoidectomy 3. Tonsillectomy 4. Jaw surgery 5. Tubal ligation HOME MEDICATIONS: Home Medications Medication Instructions Recorded Confirmed EPINEPHrine (Auto Inject) [Epipen] 0.3 mg IM ONCE PRN 04/28/20 02/23/21 HYDROcodone/APAP 10-325MG [[place] 1 tab PO Q6HR PRN 04/28/20 02/23/21 10-325] Ergocalciferol [Vitamin D2 50,000 unit PO WEEKLY 04/29/20 02/23/21 (DRISDOL)] Erenumab-Aooe [Aimovig 70 mg SQ QMONTHLY 12/10/20 02/23/21 Autoinjector] Metoprolol Succinate (ER) [Toprol 25 mg PO BID 12/10/20 02/23/21 XL] Previous Rx's Medication Instructions Recorded Amoxic-Pot Clav 875-125Mg 1 each PO Q12HR #10 tab 01/09/21 [Augmentin 875-125] Ibuprofen [Motrin] 600 mg PO Q8HR PRN #30 tab 01/09/21 ALLERGIES: Allergies Allergy/AdvReac Type Severity Reaction Status Date / Time pineapple Allergy Swelling Verified 02/23/21 10:31 SOCIAL HISTORY: No past tobacco use. FAMILY HISTORY: No family history of ulcerative colitis disease or Crohn's disease. Family history of morbid obesity. No lupus in the family. No reports of stomach or esophageal cancer. REVIEW OF ORGAN SYSTEMS: CONSTITUTIONAL: At height of 5 feet 7 inches, her ideal body weight is 140 pounds. Her highest weight is 300 pounds with body mass index 47.1 She comes in 258 pounds. Her body mass index is 40.6. She is 100 pounds overweight. HEENT: Denies any active troubles with vision or hearing. ENDOCRINE: Denies diabetes. No hypothyroidism. CARDIOVASCULAR: Has hypertensive heart disease. RESPIRATORY: Denies current chronic obstructive pulmonary disease. GASTROINTESTINAL: Denies any bright red blood per rectum. No diarrhea. No constipation. Has gastroesophageal reflux disease. GENITOURINARY: Denies bladder urgency. No recent blood in urine MUSCULOSKELETAL: Has lower back pain and joint pain. Has osteoarthritis of the knees. NEURO: Has headaches and migraines. No seizure disorders. PSYCH: Has depression. No suicidal ideation. RHEUMATOLOGIC: No lupus. No rheumatoid arthritis. HEMATOLOGIC: Denies any abnormal bleeding or bruising. SKIN: No rash. No skin cancer. PHYSICAL EXAM: VITAL SIGNS: Height 5 foot 7 inches, weight 253 pounds. BMI 39.8 GENERAL: Well-developed in no acute distress. HEENT: No scleral icterus. Extraocular movements grossly intact. Hears conversational speech. No nasal drainage. NECK: Supple without lymphadenopathy. CHEST: Nonlabored respirations with equal bilateral excursions. CARDIOVASCULAR: 2+ radial pulses. ABDOMEN: Incisions intact. All incisions without infection. MUSCULOSKELETAL: No clubbing, cyanosis. NEURO: No focal or lateralizing signs. Cranial nerves 2 through 12 grossly within normal limits. PSYCH: Appropriate affect. Alert and oriented to person, place and time. SKIN: Good skin turgor. Well perfused. STUDIES: Barium swallow reviewed report and no hiatal hernia present Final Pathologic Diagnosis GALLBLADDER, CHOLECYSTECTOMY: Mild acalculous chronic cholecystitis with cholesterolosis. ASSESSMENT: 1. Morbid obesity due to excess calories 2. Body mass index of 47.1, initial to 39.8 3. Hypertensive heart disease. 4. Migraines 5. Spina Bifida 6. Osteoarthritis of the hips 7. Osteoarthritis of the knees. 8. Right upper quadrant abdominal pain. 9. Cholecystitis 10. Vitamin D deficiency 11. Iron deficiency 12. Atelectasis PLAN: 1. Bariatric options between a sleeve, band and a Marco-en-Y gastric bypass were reviewed in detail. The patient elected for a sleeve gastrectomy. Robotic assisted approach described. 2. The [place] [facility] Data was also reviewed with benefits and risks as described. 3. An 8 page second-generation bariatric consent form was reviewed in detail including potential of bleeding, infection, leaks, adequate weight loss, nutritional deficiencies which the patient demonstrated understanding of the risks. 4. A 2 week high-protein low caloric 800 kcal diet described to address hepatomegaly. 5. Preoperative labs including complete metabolic panel and CBC with type and screen recommended. 6. DVT prophylaxis per [place] [facility]. 7. Antibiotic prophylaxis. 8. Inpatient hospitalization anticipated for more than 2 nights. 9. All questions and concerns were addressed with the patient. 10. Overall, patient has expressed understanding of bariatric care including postoperative diet and commitment of lifestyle. Patient should benefit from surgical intervention for correction of her morbid obesity. Past Medical History Past Medical History: Hypertension Additional Past Medical History / Comment(s): migraines; spina bifida. History of Any Multi-Drug Resistant Organisms: None Reported Past Surgical History: Adenoidectomy, Appendectomy, Section, Cholecystectomy, Tonsillectomy, Tubal Ligation Additional Past Surgical History / Comment(s): C-S X 4; mass on ovary removed; extra tongue was removed at age 7; jaw surgery. EGD Past Anesthesia/Blood Transfusion Reactions: No Reported Reaction Additional Past Anesthesia/Blood Transfusion Reaction / Comment(s): no hx blood tranfusion Smoking Status: Never smoker - Past Family History Sister(s) Family Medical History: Cancer Additional Family Medical History / Comment(s): thyroid Medications and Allergies Home Medications Medication Instructions Recorded Confirmed Type EPINEPHrine (Auto Inject) [Epipen] 0.3 mg IM ONCE PRN 04/28/20 04/28/21 History HYDROcodone/APAP 10-325MG [[place] 1 tab PO Q6HR PRN 04/28/20 04/28/21 History 10-325] Ergocalciferol [Vitamin D2 50,000 unit PO WEEKLY 04/29/20 04/28/21 History (DRISDOL)] Erenumab-Aooe [Aimovig 70 mg SQ QMONTHLY 12/10/20 04/28/21 History Autoinjector] Metoprolol Succinate (ER) [Toprol 25 mg PO BID 12/10/20 04/28/21 History XL] Ibuprofen [Motrin] 600 mg PO Q8HR PRN #30 tab 01/09/21 04/28/21 Rx Allergies Allergy/AdvReac Type Severity Reaction Status Date / Time pineapple Allergy Swelling Verified 04/28/21 11:06
[2021-05-04] MEDS ORDERED: SCOPOLAMINE 1.5MG/72HR PATCH TRANSDERM STA (08:16)
[2021-05-04] MEDS ORDERED: GABAPENTIN 300 MG CAP PO STA (08:16)
[2021-05-04] MEDS ORDERED: ACETAMINOPHEN TAB 500 MG TAB PO STA (08:16)
[2021-05-04] MEDS ORDERED: MIDAZOLAM 2 MG/2 ML VIAL IV ONE (09:50)
[2021-05-04] MEDS ORDERED: ROCURONIUM 10 MG/ML (5 ML VIAL) IV ONE (10:11)
[2021-05-04] MEDS ORDERED: .fentaNYL (PF) 50 MCG/ML 2 ML AMP ONE (10:11)
[2021-05-04] MEDS ORDERED: NEOSTIGMINE 1 MG/ML 10 ML VIAL ONE (10:11)
[2021-05-04] MEDS ORDERED: PROPOFOL 10 MG/ML 20 ML VIAL IV ONE (10:11)
[2021-05-04] MEDS ORDERED: ESMOLOL 100 MG/10 ML VIAL ONE (10:11)
[2021-05-04] MEDS ORDERED: LIDOCAINE 1% INJ 10MG/ML (20 ML MDV) ONE (10:11)
[2021-05-04] MEDS ORDERED: MIDAZOLAM 2 MG/2 ML VIAL ONE (10:11)
[2021-05-04] MEDS ORDERED: HYDROmorphone (PF) 1 MG/ML ONE (10:11)
[2021-05-04] MEDS ORDERED: GLYCOPYRROLATE 0.2 MG/ML 2 ML VIAL ONE (10:11)
[2021-05-04] MEDS ORDERED: SUCCINYLCHOLINE CHLORIDE 100 MG/5 ML SYR IV ONE (10:11)
[2021-05-04] MEDS ORDERED: BUPIVACAINE (PF) 0.25% 30 ML VIAL SQ ONE (10:41)
[2021-05-04] MEDS ORDERED: LACTATED RINGERS 1,000 ML IV ONE (11:01)
[2021-05-04] MEDS ORDERED: NALOXONE 0.4 MG/ML 1 ML VIAL IV PRN (12:06)
[2021-05-04] MEDS ORDERED: diphenhydrAMINE 50 MG/ML 1 ML VIAL IVP PRN (12:06)
[2021-05-04] MEDS ORDERED: DEXAMETHASONE SOD PHOSPHATE 10 MG/ML 1 ML VIAL IVP PRN (12:10)
[2021-05-04] MEDS ORDERED: ONDANSETRON 4 MG/2 ML VIAL ONE (12:33)
[2021-05-04] MEDS ORDERED: ONDANSETRON 4 MG/2 ML VIAL IVP ONE (12:35)
[2021-05-04] MEDS: HYDROmorphone 0.5 MG/0.5 ML SYRINGE IVP PRN ×4 (12:35→13:18)
[2021-05-04] MEDS: diphenhydrAMINE 50 MG/ML 1 ML VIAL IVP ONE ×2 (13:29→15:02)
[2021-05-04] MEDS ORDERED: METOCLOPRAMIDE 5 MG/ML 2 ML VIAL IVP ONE (15:01)
[2021-05-04] MEDS ORDERED: METOCLOPRAMIDE 5 MG/ML 2 ML VIAL ONE (15:03)
--- NOTE | 2021-05-04 15:13 | P.OP ---
Date of Procedure: 05/04/21 Description of Procedure: SURGEON: YESSY ANGULO MD PREOPERATIVE DIAGNOSES: 1. Morbid obesity due to excess calories 2. Body mass index of 47.1 3. Hypertensive heart disease. 4. Migraines 5. Spina Bifida 6. Osteoarthritis of the hips 7. Osteoarthritis of the knees. 8. Right upper quadrant abdominal pain. 9. Vitamin D deficiency 10. Iron deficiency POSTOPERATIVE DIAGNOSES: 1. Morbid obesity due to excess calories 2. Body mass index of 47.1 3. Hypertensive heart disease. 4. Migraines 5. Spina Bifida 6. Osteoarthritis of the hips 7. Osteoarthritis of the knees. 8. Right upper quadrant abdominal pain. 9. Vitamin D deficiency 10. Iron deficiency OPERATION: 1. Robotic assisted daVinci Xi laparoscopic sleeve gastrectomy with 40-Turkish bougie, multiport. 2. Intraoperative esophagogastroduodenoscopy. ANESTHESIA: Gen. local anesthetic ESTIMATED BLOOD LOSS: 5 mL SPECIMENS REMOVED: Sleeve gastrectomy COMPLICATIONS: None. FINDINGS: 1. Negative intraoperative esophagogastrojejunoscopy leak test. 2. No hepatomegaly and no large hiatus hernia. 3. Total of 6 staplers used including 2 - 60 mm green robot jadyn and 4 - 60 mm blue robot loads used to create the gastric sleeve. 4. Sleeve gastrectomy, 25 x 4 cm INDICATIONS: Razia Lilly is a 31-year-old female who comes with lifelong morbid obesity. As a result of morbid obesity, she developed hypertensive heart disease including osteoarthritis. She completed the bariatric program. She completed medical risk assessment including dietary surveillance and counseling. She is seeking the sleeve gastrectomy. At height of 5 feet 7 inches, her ideal body weight is 140 pounds. Her highest weight is 300 pounds with body mass index 47.1. She comes in 270 pounds. Her body mass index is 43.6. She is 116 pounds overweight. All surgical options for morbid obesity had been described using the [place] [facility] collaborative comorbidity resolution including complication risk score. A second-generation bariatric consent form was described in detail including the possibility of protein malnutrition, leaks, gastric stricture, venous thrombosis, gastroesophageal reflux disease, need for further surgery for which she demonstrated understanding. Benefits and risks of the procedure were described at length. Informed consent was obtained. DESCRIPTION: The patient was brought into the operating room theater. Preoperatively she had received Lovenox subcutaneously for DVT prophylaxis. Additionally she had Peridex oral solution as an oral decontaminant. After general induction, the abdomen was prepped and draped in standard sterile fashion. An Ioban draping was placed along the abdomen. A robotic da Eri Xi system was prepped and primed. At 15 cm from the xiphoid, proposed port sites were marked with indelible marker along the anterior axillary line bilaterally, mid axillary line bilaterally with each ports were marked 10 to 15 cm from each other. The robotic stapler port was marked for the right midclavicular line. A 5 mm 0 degrees laparoscopic trocar entry was performed along the left upper quadrant. The abdomen was insufflated to 15 mmHg pressure was tolerated well. Diagnostic laparoscopy demonstrated no injury to bowel, viscera, or mesentery. No evidence of large hiatus hernia was identified. The liver edge was sharp consistent with 2 week low-carb high-protein diet. A 8 mm port was placed along the left upper abdominal wall after exchanging the 5 mm port. A separate 8 mm port was placed along the left lateral abdominal wall. Please note that the ports were placed at least 20 cm away from the target anatomy. Care was taken to check each robotic arms were safely away from collision with the bed or the patient. At the epigastrium, a medium sized Jose liver retractor was placed under direct visualization with the Iron Product Marketing Engineer placed under the right shoulder of the patient. Next, 12-mm robot stapler port was placed along the right upper quadrant. The camera 8-mm port was maintained along the epigastrium. The patient was repositioned in reverse Trendelenburg position at 21-degrees after lowering the bed. The robot was docked along the left side of the patient. Using a grasper for arm 4, a vessel sealer for arm 3, including grasper for arm 1, the robotic system was docked and primed as described. Instruments were interchanged by the sales assistant institutional sales for stapler loads. The camera was placed at 30- degrees down. I had sat at the console. The pylorus was identified and 6 cm proximally along the greater curvature of the stomach, the short gastrics were mobilized upwards to the angle of His using a vessel sealer. Hemostasis was excellent during this portion of the procedure. Next, the upper pole of the stomach was adherent to the left enrrique, which was gently dissected free using atraumatic grasper. I went to the head of the bed and placed 40-Turkish blunt bougie into the stomach. The bougie was readjusted by the nurse production cost estimator. Robotic stapler green load 60 mm 2 followed by blue 60 mm x 4 loads were used to create the sleeve. Initial firing was across the antrum of the stomach towards the angle of His. The staple line was linear without corkscrewing. The space from the angularis incisura of the sleeve was approximately 4 cm. I then went to the head of the bed to perform the intraoperative esophagogastroduodenoscopy leak test. The bougie was withdrawn. The upper pole of the stomach was bathed using normal saline solution. The scope was withdrawn with careful inspection along the staple line for which no leaks were found along the entire length. Additionally,the sleeve was completely hemostatic without any encroachment along the angularis incisura. Its topology was a soft "J". No stricture was encountered upon placement of the scope. The GI tract was desufflated. The patient tolerated this portion of the procedure well. The scope was completely withdrawn. The robot was undocked. I then rescrubbed into case, whereby the irrigation fluid was aspirated from the abdominal cavity. Tisseel fibrin sealant was placed along the entire staple length. Once dried the Jose liver retractor was removed. Attention was now brought to removal of the specimen. The distal end of the sleeve gastrectomy specimen was brought out through the 12 mm port at the left upper quadrant. The specimen was gently removed en total. No contamination had occurred during this process. All instruments and pneumoperitoneum including irrigation fluid was removed from the abdominal cavity. The 12 mm port site was closed using 0-Vicryl and Jason Sanders and irrigated with diluted hydrogen peroxide. The final incisions were closed using subcuticular interrupted suture of 4-0 Monocryl. Exofin was applied to the skin once the skin had been cleansed. OptiFoam dressing was placed along the stomach extraction site. The sleeve specimen was measured and checked also for leaks which none were found. At the end of the procedure, needle, sponge, and instrument count was verified correct by the donor center technician. The patient was taken to the postanesthesia care unit in stable condition. She had tolerated the procedure well. Intraoperative films and findings were reviewed with the patient's family.
[2021-05-04] MEDS: SODIUM CHLORIDE 0.9% 1,000 ML IV SCH ×2 (16:52→21:15)
[2021-05-04] MEDS: METOCLOPRAMIDE 5 MG/ML 2 ML VIAL IVP SCH ×2 (16:53→23:47)
[2021-05-04] MEDS: DEXAMETHASONE SOD PHOSPHATE 4 MG/ML 1 ML VIAL IVP SCH ×2 (16:55→23:46)
[2021-05-04] MEDS: KETOROLAC 30 MG/ML 1 ML VIAL IVP SCH ×2 (16:56→23:46)
[2021-05-04] MEDS: SIMETHICONE 40 MG/0.6 ML DROPS 2,000 MG/30 ML BOTTLE PO SCH ×2 (16:58→23:48)
[2021-05-04] MEDS: ACETAMINOPHEN IV (For NPO) 1,000 MG in EMPTY BAG 1 BAG IVPB SCH ×2 (17:43→23:48)
[2021-05-04] MEDS: ALBUTEROL NEBULIZED 2.5 MG/3 ML INHALATION SCH ×2 (17:44→19:45)
[2021-05-04] MEDS ORDERED: ceFAZolin 3 GM in SODIUM CHLORIDE 0.9% 100 ML IVPB SCH (18:00)
[2021-05-04] MEDS: HYDROmorphone 1 MG/ML 1 ML SYRINGE IVP PRN (19:44)
[2021-05-04] MEDS ORDERED: ONDANSETRON 4 MG/2 ML VIAL IVP PRN (20:18)
[2021-05-04] MEDS: 0.9% NACL WITH KCL 20 MEQ/L 1,000 ML IV SCH ×2 (21:39→23:45)
[2021-05-05] MEDS: 0.9% NACL WITH KCL 20 MEQ/L 1,000 ML IV SCH (04:11)
[2021-05-05] MEDS: DEXAMETHASONE SOD PHOSPHATE 4 MG/ML 1 ML VIAL IVP SCH ×2 (05:06→10:32)
[2021-05-05] MEDS: METOCLOPRAMIDE 5 MG/ML 2 ML VIAL IVP SCH ×2 (05:06→10:32)
[2021-05-05] MEDS: KETOROLAC 30 MG/ML 1 ML VIAL IVP SCH ×2 (05:06→10:32)
[2021-05-05] MEDS: HYDROmorphone 1 MG/ML 1 ML SYRINGE IVP PRN (05:07)
[2021-05-05] MEDS: ACETAMINOPHEN IV (For NPO) 1,000 MG in EMPTY BAG 1 BAG IVPB SCH ×2 (05:07→10:31)
[2021-05-05] MEDS: SIMETHICONE 40 MG/0.6 ML DROPS 2,000 MG/30 ML BOTTLE PO SCH ×2 (05:08→10:33)
[2021-05-05] MEDS ORDERED: 1: THIAMINE 100 MG, FOLIC ACID 1 MG, POTASSIUM CHLORIDE 20 MEQ in SODIUM CHLORIDE 0.9% 1 IVP SCH ×5 (08:00)
[2021-05-05] MEDS: ALBUTEROL NEBULIZED 2.5 MG/3 ML INHALATION SCH ×3 (08:55→15:59)
[2021-05-05] MEDS ORDERED: ENOXAPARIN 40 MG/0.4 ML SYRINGE SQ SCH (09:00)
[2021-05-05] MEDS ORDERED: PANTOPRAZOLE 40 MG/10 ML VIAL IV SCH (09:00)
[2021-05-05 09:38] LABS: Basophils # (A) 0.01 X 10*3/uL (0.00-0.10); Basophils % (A) 0.1 %; Eosinophils # (A) 0 X 10*3/uL (0.04-0.35); Eosinophils % (A) 0 %; HCT 39.3 % (37.2-46.3); HGB 12.6 g/dL (12.0-15.0); Lymphocytes # (A) 0.93 X 10*3/uL (0.90-5.00); Lymphocytes % (A) 9.4 %; MCH 26.4 pg (27.0-32.0); MCHC 32.1 g/dL (32.0-37.0); MCV 82.4 fL (80.0-97.0); Mean Platelet Volume 11.3 fL (9.5-12.2); Monocytes # (A) 0.13 X 10*3/uL (0.20-1.00); Monocytes % (A) 1.3 %; Neutrophils # (A) 8.71 X 10*3/uL (1.80-7.70); Neutrophils % (A) 88.5 %; Platelet Count 364 X 10*3/uL (140-440); RBC 4.77 X 10*6/uL (4.10-5.20); RDW 14.4 % (11.5-14.5); WBC 9.85 X 10*3/uL (4.50-10.00)
--- NOTE | 2021-05-05 10:44 | FL ---
EXAMINATION TYPE: FL UGI DATE OF EXAM: 05/05/2021 LIMITED UGI: CLINICAL HISTORY: Morbid Obesity, gastric sleeve surgery yesterday. TECHNIQUE: Limited esophagram is performed utilizing 25 oz of Isovue-370. A total of 25 seconds of f luoroscopic time was utilized during procedure and 22 images obtained. COMPARISON: Esophagram December 29, 2020. FINDINGS: The patient swallowed contrast without difficulty or delay. Esophageal peristalsis and mo tility are within normal limits. There is good flow of contrast along the diaphragmatic hiatus into proximal stomach and subsequent flow through proximal anastomosis into gastric sleeve. There is good flow from distal sleeve and anastomosis into pylorus and duodenal sweep. Patient remains asymptomatic . There is no evidence of contrast extravasation to suggest leak. IMPRESSION: No evidence of leak or significant obstruction status post recent gastric sleeve surgery.
[2021-05-05 11:50] LABS: African American GFR (CKD) 133.6 (60.0-200.0); Anion Gap 11.8 mmol/L (10.00-18.00); Calcium 8.8 mg/dL (8.7-10.3); Carbon Dioxide 21.1 mmol/L (20.0-27.5); Magnesium 2.1 mg/dL (1.5-2.4); Non-African American GFR(CKD) 115.3 (60.0-200.0); Phosphorus 3.1 mg/dL (2.4-5.1); Potassium 4.6 mmol/L (3.5-5.5)
[2021-05-05 12:10] VITALS: BMI 43.5
[2021-05-05 14:41] VITALS: BP 135/73; PULSE 87; RESP 17; TEMP 98.7
--- NOTE | 2021-05-05 15:27 | P.DS ---
Providers Date of admission: 05/04/21 08:25 Expected date of discharge: 05/05/21 Attending physician: Magy Park Primary care physician: Yaya Al MD Hospital Course: Discharge diagnosis 1. Morbid obesity due to excess calories 2. Body mass index of 47.1 3. Hypertensive heart disease. 4. Migraines 5. Spina Bifida 6. Osteoarthritis of the hips 7. Osteoarthritis of the knees. 8. Right upper quadrant abdominal pain. 9. Vitamin D deficiency 10. Iron deficiency Hospital course Razia Lilly is a 31-year-old female who comes with lifelong morbid obesity. As a result of morbid obesity, she developed hypertensive heart disease including osteoarthritis. She completed the bariatric program. She completed medical risk assessment including dietary surveillance and counseling. Patient is status post Robotic assisted daVinci Xi laparoscopic sleeve gastrectomy. Patient tolerated surgery well. Her upper GI shows no evidence of leak or obstruction. She is, tolerating bariatric clear liquid diet. She has been up and ambulating. She is having flatus. She denies a difficult to urinating. She is afebrile. She is stable for discharge. Physician Competitive Shopper note has been reviewed by physician. Signing provider agrees with the documented findings, assessment, and plan of care. Patient Condition at Discharge: Stable Plan - Discharge Summary Discharge Rx Participant: Yes New Discharge Prescriptions: New Acetaminophen Tab [Tylenol Tab] 1,000 mg PO Q6HR PRN #30 tablet PRN Reason: Pain bisacodyL [Dulcolax] 5 mg PO DAILY PRN #10 tab PRN Reason: Constipation Simethicone 40 mg/0.6 ml Drops [Mylicon Drops] 40 mg PO PCHS PRN #30 ml PRN Reason: Gas Omeprazole [PriLOSEC] 40 mg PO DAILY #30 cap Ondansetron Odt [Zofran Odt] 4 mg PO Q8HR PRN #9 tab PRN Reason: Nausea Continue HYDROcodone/APAP 10-325MG [[place] 10-325] 1 tab PO Q6HR PRN PRN Reason: Pain EPINEPHrine (Auto Inject) [Epipen] 0.3 mg IM ONCE PRN PRN Reason: Anaphylaxis Metoprolol Succinate (ER) [Toprol XL] 25 mg PO BID Erenumab-Aooe [Aimovig Autoinjector] 70 mg SQ QMONTHLY Discontinued Ergocalciferol [Vitamin D2 (DRISDOL)] 50,000 unit PO WEEKLY Ibuprofen [Motrin] 600 mg PO Q8HR PRN #30 tab PRN Reason: Pain Discharge Medication List EPINEPHrine (Auto Inject) [Epipen] 0.3 mg IM ONCE PRN 04/28/20 [History] HYDROcodone/APAP 10-325MG [[place] 10-325] 1 tab PO Q6HR PRN 04/28/20 [History] Erenumab-Aooe [Aimovig Autoinjector] 70 mg SQ QMONTHLY 12/10/20 [History] Metoprolol Succinate (ER) [Toprol XL] 25 mg PO BID 12/10/20 [History] Acetaminophen Tab [Tylenol Tab] 1,000 mg PO Q6HR PRN #30 tablet 05/05/21 [Rx] Omeprazole [PriLOSEC] 40 mg PO DAILY #30 cap 05/05/21 [Rx] Ondansetron Odt [Zofran Odt] 4 mg PO Q8HR PRN #9 tab 05/05/21 [Rx] Simethicone 40 mg/0.6 ml Drops [Mylicon Drops] 40 mg PO PCHS PRN #30 ml 05/05/21 [Rx] bisacodyL [Dulcolax] 5 mg PO DAILY PRN #10 tab 05/05/21 [Rx] Follow up App[facility]ment(s[place] [facility] - 05/08/21 9:00 am Patient Instructions/Handouts: Nutrition after Bariatric Surgery (GEN), Laparoscopic Sleeve Gastrectomy (DC) Activity/Diet/Wound Care/Special Instructions: Liquid diet only for 2 weeks until May 18 No lifting over 4 pounds in 4 weeks, May 04September Shower. No soaking in bath tubs, until May 18 Please notify your surgeon if you develop nausea and vomiting including new onset of abdominal pain. Continue to use incentive spirometry to prevent pneumonias. Please continue to ambulate at home to prevent blood clots in legs. Follow-up at the bariatric center. May shower. Dressings to be discontinued by surgeon in the office. Drink 64 oz of fluid daily. Start protein shakes on . Notify bariatric center for temp over 101.0, increased pain, drainage from incisions. No straws or carbonated beverages. Liquid diet only. Sugar content should be less than 6 g to avoid dumping syndrome. Take MOM for constipation. CRUSH, OPEN, OR CUT TABLETS LARGER THAN A SIZE OF A TIC TAC Discharge Disposition: HOME SELF-CARE
[2021-05-06] MEDS ORDERED: bisacodyL 5 MG TABLET.DR PO PRN (08:00)
== END 2021-05-05 16:15 | disposition home or self-care (01) | DRG 620 ==
LOC: 2ORMAIN 08:25 → 4SSUR 15:49
PROVIDERS: ADMIT Surgery Plastic and Reconstructive Surgery; ATTEND Surgery Plastic and Reconstructive Surgery
PROC: 0DJ08ZZ Inspection of Upper Intestinal Tract, Via Natural or Artificial Opening Endoscopic (ICD-10-PCS; 2021-05-04)
PROC: 8E0W4CZ Robotic Assisted Procedure of Trunk Region, Percutaneous Endoscopic Approach (ICD-10-PCS; 2021-05-04)
PROC: 0DB64Z3 Excision of Stomach, Percutaneous Endoscopic Approach, Vertical (ICD-10-PCS; principal; 2021-05-04 09:45)
DX: E66.01 Morbid (severe) obesity due to excess calories (principal); J98.11 Atelectasis; E55.9 Vitamin D deficiency, unspecified; I10 Essential (primary) hypertension; E61.1 Iron deficiency; Z20.822 Contact with and (suspected) exposure to COVID-19; G43.909 Migraine, unspecified, not intractable, without status migrainosus; K81.9 Cholecystitis, unspecified; M16.0 Bilateral primary osteoarthritis of hip; M17.0 Bilateral primary osteoarthritis of knee; Q05.9 Spina bifida, unspecified; Z68.42 Body mass index [BMI] 45.0-49.9, adult; Z90.49 Acquired absence of other specified parts of digestive tract; Z91.02 Food additives allergy status; Z98.51 Tubal ligation status
CPT/HCPCS: 74240; 80051; 81025; 82310; 82565; 83735; 84100; 84520; 85025; 86850; 86900; 86901; 87635; 88307; 94760; 94762

== ENCOUNTER → 2021-05-08 | Outpatient (CLI) | payer OTHER ==
--- NOTE | 2021-05-08 09:20 | P.BASOAP ---
Subjective Progress Note Date: 05/08/21 Patient reports chest pressure with swallowing liquids. Pain is well-controlled at the left upper quadrant incision. No reports of vomiting. She has a scopolamine patch. Heart rate upon immediate presentation 120s. Recommend IV fluid hydration. Pictures of her surgery reviewed. Dressing discontinue without sell ice infection. Follow-up one week. Anticipated return to work May 18 2 weeks following her procedure. All questions addressed. Assessment/Plan Plan: Date: Initial Weight: 117.48 kg Initial BMI: Current Weight: Current BMI: Type of Surgery: Total Volume in Band: Previous Volume: Volume Removed: Volume Added: Band Size:
[2021-05-08] MEDS: SODIUM CHLORIDE 0.9% 1,000 ML IV SCH ×2 (09:50→10:55)
[2021-05-08 10:01] VITALS: PULSE 115; RESP 14
[2021-05-08 10:29] VITALS: BP 138/90; TEMP 98.2; BMI 40.8
== END ==
LOC: BARWHC3 09:04
PROVIDERS: ATTEND Surgery Plastic and Reconstructive Surgery
DX: E86.0 Dehydration (principal); Z91.018 Allergy to other foods
CPT/HCPCS: 96360; 96361; G0463; 99211

== ENCOUNTER → 2021-05-13 | Outpatient (CLI) | payer OTHER ==
[~2021-05-13] MED LIST changes: -CHLORHEXIDINE GLUCONATE 15 ML CUP MUCOUS MEM PRN; -DEXAMETHASONE SOD PHOSPHATE 4 MG/ML 1 ML VIAL IV ONE; -ENOXAPARIN 40 MG/0.4 ML SYRINGE SQ PRN; -LACTATED RINGERS 1,000 ML IV SCH; -ONDANSETRON 4 MG/2 ML VIAL IVP ONE; -PANTOPRAZOLE 40 MG/10 ML VIAL IVP PRN; +SODIUM CHLORIDE 0.9% 500 ML 500 ML in EMPTY BAG 1 BAG IV PRN; -ceFAZolin 3 GM in SODIUM CHLORIDE 0.9% 100 ML IVPB PRN
[2021-05-13 09:38] VITALS: BP 127/81; PULSE 69; RESP 15; TEMP 98.3
[2021-05-13] MEDS: SODIUM CHLORIDE 0.9% 1,000 ML IV SCH ×2 (09:44→10:39)
== END ==
LOC: PROCWHC3 09:34
PROVIDERS: ATTEND Surgery Plastic and Reconstructive Surgery
DX: E86.0 Dehydration (principal); Z91.018 Allergy to other foods
CPT/HCPCS: 96360; 96361

== ENCOUNTER → 2021-05-13 | Outpatient (CLI) | payer OTHER ==
[~2021-05-13] MED LIST changes: +SCOPOLAMINE 1.5MG/72HR PATCH TRANSDERM STA; +SODIUM CHLORIDE 0.9% 2,000 ML IV ONE; -SODIUM CHLORIDE 0.9% 500 ML 500 ML in EMPTY BAG 1 BAG IV PRN
--- NOTE | 2021-05-13 09:29 | P.BASOAP ---
Subjective Progress Note Date: 05/13/21 She reports barely urinating daily and very concentrated. Recommend fluids today again for Tuesday. She doesn't have patch. She reports trouble with smells that causes nausea. NO infection. She does well in the morning. Zofran prescribed and Scopolamine patches. She cannot stand textures. Assessment/Plan Plan: Date: Initial Weight: 117.48 kg Initial BMI: Current Weight: Current BMI: Type of Surgery: Total Volume in Band: Previous Volume: Volume Removed: Volume Added: Band Size:
--- NOTE | 2021-05-13 09:37 | P.PN ---
Progress Note - Text Progress Note Date: 05/13/21 To whom it may concern: Razia Lilly is under my surgical care. She may return to work Tuesday, May 18 with restrictions of no lifting over 4 pounds until June 04, 2021. She is required to have another assessment TuesdayMay 18 for 2hrs in our office. Regards, Magy Park MD, FACS
[2021-05-13 10:44] VITALS: BMI 39.7
[2021-05-13 12:45] VITALS: BP 127/80; PULSE 69; TEMP 98.3
== END ==
LOC: BARWHC3 09:09
PROVIDERS: ATTEND Surgery Plastic and Reconstructive Surgery
DX: E66.01 Morbid (severe) obesity due to excess calories (principal); Z71.3 Dietary counseling and surveillance; Z68.39 Body mass index [BMI] 39.0-39.9, adult; Z91.018 Allergy to other foods
CPT/HCPCS: 97803; G0463; 99211

== ENCOUNTER → 2021-05-15 | Outpatient (CLI) | payer OTHER ==
--- NOTE | 2021-05-15 14:16 | FL ---
EXAMINATION TYPE: FL barium swallow DATE OF EXAM: 05/15/2021 LIMITED UGI-ESOPHOGRAM: CLINICAL HISTORY: Gastric sleeve surgery 11 days ago. Has had dysphasia and vomiting for one week. TECHNIQUE: Limited esophagram is attempted utilizing 20 oz of contrast. A total of 1.14 minutes of f luoroscopic time was utilized during procedure and 21 images obtained. COMPARISON: Prior upper GI study 10 days ago.. FINDINGS: Patient has anxiety prior to beginning exam. The patient has vomiting and retching when at tempting to swallow contrast . Esophageal peristalsis and motility are within normal limits. There is good flow of contrast along the diaphragmatic hiatus into proximal stomach and then moderate cherelle y through the proximal anastomosis into gastric sleeve. There is moderate delay in flow from distal s leeve into pylorus and duodenal sweep. Patient has nausea and vomiting before during and after attemp francisca procedure. There is no evidence of contrast extravasation to suggest leak. IMPRESSION: No evidence of leak. Suboptimal study with delay in passage of contrast or moderate obstr uction at proximal and distal anastomosis.
== END | disposition home or self-care (01) ==
LOC: RADUSWWP 13:04
PROVIDERS: ATTEND Surgery Plastic and Reconstructive Surgery
DX: R13.10 Dysphagia, unspecified (principal); R11.10 Vomiting, unspecified; Z98.84 Bariatric surgery status
CPT/HCPCS: 74220

== ENCOUNTER → 2021-05-20 | Outpatient (CLI) | payer OTHER ==
[~2021-05-20] MED LIST changes: +DEXAMETHASONE SOD PHOSPHATE 10 MG/ML 1 ML VIAL IM STA; -SCOPOLAMINE 1.5MG/72HR PATCH TRANSDERM STA; -SODIUM CHLORIDE 0.9% 2,000 ML IV ONE
[2021-05-20 15:35] VITALS: BP 114/84; PULSE 80; RESP 16; TEMP 98.2
== END ==
LOC: PROCWHC3 15:18
PROVIDERS: ATTEND Surgery Plastic and Reconstructive Surgery
DX: R13.10 Dysphagia, unspecified (principal); Z91.018 Allergy to other foods
CPT/HCPCS: 96372; J1100

== ENCOUNTER → 2021-06-05 | Outpatient (CLI) | payer OTHER ==
[2021-06-05 10:36] LABS: Partial Thromboplastin Time 24.7 sec (22.0-30.0); Prothrombin Time 10.3 sec (9.0-12.0)
[2021-06-05 14:46] LABS: HCT 40.5 % (37.2-46.3); HGB 12.9 g/dL (12.0-15.0); MCHC 31.9 g/dL (32.0-37.0); MCV 81.7 fL (80.0-97.0); Mean Platelet Volume 11.7 fL (9.5-12.2); Platelet Count 339 X 10*3/uL (140-440); RBC 4.96 X 10*6/uL (4.10-5.20); RDW 14.6 % (11.5-14.5); WBC 8.09 X 10*3/uL (4.50-10.00)
[2021-06-05 17:46] LABS: % Iron Saturation 20.79 (12.00-45.00); ALT 29 U/L (8-44); AST 18 U/L (13-35); African American GFR (CKD) 137.2 (60.0-200.0); Albumin 4.4 g/dL (3.8-4.9); Albumin/Globulin Ratio 1.73 (1.60-3.17); Alkaline Phosphatase 70 U/L (41-126); BUN/Creat Ratio 11.93 Ratio (12.00-20.00); Blood Urea Nitrogen 7.9 mg/dL (9.0-27.0); Calcium 9.4 mg/dL (8.7-10.3); Carbon Dioxide 22.5 mmol/L (20.0-27.5); Chloride 102 mmol/L (96-109); Chol/HDL Ratio 4.83 Ratio; Globulin 2.5 g/dL (1.6-3.3); Glucose 105 mg/dL (70-110); Iron 69 ug/dL (50-170); LDL Cholesterol,Calculated 121.9 mg/dL (0.0-131.0); Non-African American GFR(CKD) 118.4 (60.0-200.0); Phosphorus 3.5 mg/dL (2.4-5.1); Potassium 4.1 mmol/L (3.5-5.5); Prealbumin 21.1 mg/dL (18.0-42.0); Sodium 137 mmol/L (135-145); Total Iron Binding Capacity 330 ug/dL (228-460); Total Protein 6.9 g/dL (6.2-8.2)
[2021-06-08 14:03] LABS: Zinc, Serum 81 ug/dL (60-130)
[2021-06-09 06:15] LABS: Vitamin A 37 ug/dL (38-106)
[2021-06-09 11:51] LABS: Vit B1(Thiamine) 52 ug/L (38-122)
== END | disposition home or self-care (01) ==
LOC: LABWHC1 09:12
PROVIDERS: ATTEND Surgery Plastic and Reconstructive Surgery
DX: E66.01 Morbid (severe) obesity due to excess calories (principal); E89.1 Postprocedural hypoinsulinemia; D50.8 Other iron deficiency anemias; E44.0 Moderate protein-calorie malnutrition; E55.9 Vitamin D deficiency, unspecified; K74.1 Hepatic sclerosis; N19 Unspecified kidney failure; K50.90 Crohn's disease, unspecified, without complications
CPT/HCPCS: 36415; 80053; 80061; 82306; 82525; 82607; 82728; 82746; 83036; 83540; 83550; 83735; 83970; 84100; 84134; 84255; 84425; 84443; 84590; 84630; 85027; 85610; 85730

== ENCOUNTER → 2021-07-01 | Outpatient (CLI) | payer OTHER ==
[2021-07-01 13:23] VITALS: BP 130/76; PULSE 79; RESP 16; TEMP 98.7; BMI 39.4
--- NOTE | 2021-07-01 14:12 | P.BASOAP ---
Subjective Progress Note Date: 07/01/21 Went over labs, Vit A and D. Dysphagia and needs EGD. Protein intake 20 to 40 grams. EGD. Objective - Vital Signs Vital signs: Vital Signs Temp 98.7 F 07/01/21 13:21 Pulse 79 07/01/21 13:21 Resp 16 07/01/21 13:21 BP 130/76 07/01/21 13:21 Pulse Ox Intake & Output 06/30/21 07/01/21 07/01/21 18:59 06:59 18:59 Weight 114.305 kg Assessment/Plan Plan: Date: 07/01/21 Initial Weight: 117.48 kg Initial BMI: 40.5 Current Weight: 114.305 kg Current BMI: 39.4 Type of Surgery: Total Volume in Band: Previous Volume: Volume Removed: Volume Added: Band Size:
== END ==
LOC: BARWHC3 12:59
PROVIDERS: ATTEND Surgery Plastic and Reconstructive Surgery
DX: E66.01 Morbid (severe) obesity due to excess calories (principal); Z71.3 Dietary counseling and surveillance; Z68.39 Body mass index [BMI] 39.0-39.9, adult; Z91.018 Allergy to other foods
CPT/HCPCS: 97803; G0463; 99211

== ENCOUNTER → 2021-07-03 | Outpatient (CLI) | payer OTHER | END | disposition home or self-care (01) | LOC: LABPAT 11:40 | PROVIDERS: ATTEND Surgery Plastic and Reconstructive Surgery | DX: Z20.822 Contact with and (suspected) exposure to COVID-19 (principal) | CPT/HCPCS: U0003; C9803; U0005 ==

== ENCOUNTER 2021-07-06 07:08 | Day surgery (SDC) | payer OTHER ==
[2021-07-02 13:10] VITALS: BMI 39.4
[~2021-07-06 07:08] MED LIST changes: -DEXAMETHASONE SOD PHOSPHATE 10 MG/ML 1 ML VIAL IM STA; +LACTATED RINGERS 1,000 ML IV SCH; +LIDOCAINE 1% (10MG/ML) FOR IV START INTRADERMA PRN
[2021-07-06 07:44] VITALS: TEMP 98
--- NOTE | 2021-07-06 07:44 | P.GSHP ---
History of Present Illness H&P Date: 07/06/21 CHIEF COMPLAINT: GERD HISTORY OF PRESENT ILLNESS: The patient is a 31-year-old female who presents reports gastroesophageal reflux disease. Upper endoscopy was offered for further evaluation and management. PAST MEDICAL HISTORY: Please see list. PAST SURGICAL HISTORY: Please see list. MEDICATIONS: Please see list. ALLERGIES: Please see list. SOCIAL HISTORY: No illicit drug use FAMILY HISTORY: No reports of Crohn disease or ulcerative colitis. REVIEW OF ORGAN SYSTEMS: CONSTITUTIONAL: No reports of fevers or chills. GI: Denies any blood in stools or constipation. PHYSICAL EXAM: VITAL SIGNS: Stable GENERAL: Well-developed and pleasant in no acute distress. HEENT: No scleral icterus. Extraocular movements grossly intact. Moist buccal mucosa. NECK: Supple without lymphadenopathy. CHEST: Unlabored respirations. Equal bilateral excursions. CARDIOVASCULAR: Regular rate and rhythm. Distal 2+ pulses. ABDOMEN: Soft, nondistended. MUSCULOSKELETAL: No clubbing, cyanosis, or edema. ASSESSMENT: 1. Gastroesophageal reflux disease PLAN: 1. Recommend proceeding with an upper endoscopy Past Medical History Past Medical History: Hypertension Additional Past Medical History / Comment(s): c/o abd pain, [place], and currently having problems keeping food and fluids down, hx migraines; spina bifida. History of Any Multi-Drug Resistant Organisms: None Reported Past Surgical History: Adenoidectomy, Appendectomy, Bariatric Surgery, Section, Cholecystectomy, Tonsillectomy, Tubal Ligation Additional Past Surgical History / Comment(s): C-S X 4; mass on ovary removed; extra tongue was removed at age 7; jaw surgery. EGD. Sleeve Gastrectomy 05-04-21 Past Anesthesia/Blood Transfusion Reactions: No Reported Reaction Additional Past Anesthesia/Blood Transfusion Reaction / Comment(s): no hx blood tranfusion Past Psychological History: No Psychological Hx Reported Smoking Status: Never smoker Past Alcohol Use History: Rare Past Drug Use History: None Reported Additional Drug Use History / Comment(s): tried marijuana once march 2020 - Past Family History Sister(s) Family Medical History: Cancer Additional Family Medical History / Comment(s): thyroid Medications and Allergies Home Medications Medication Instructions Recorded Confirmed Type EPINEPHrine (Auto Inject) [Epipen] 0.3 mg IM ONCE PRN 04/28/20 07/02/21 History HYDROcodone/APAP 10-325MG [[place] 1 tab PO Q6HR PRN 04/28/20 07/02/21 History 10-325] Erenumab-Aooe [Aimovig 70 mg SQ QMONTHLY 12/10/20 07/02/21 History Autoinjector] Ergocalciferol [Vitamin D2 (1250 50,000 unit PO WEEKLY 06/09/21 07/02/21 History Mcg = 88525 Iu)] Vitamin A [Vitamin A (8,000 Units 10,000 unit PO DAILY 06/09/21 07/02/21 History = 2,400 MCG)] Allergies Allergy/AdvReac Type Severity Reaction Status Date / Time pineapple Allergy Swelling Verified 07/02/21 13:07
[2021-07-06] MEDS ORDERED: PROPOFOL 10 MG/ML 20 ML VIAL IV ONE (07:49)
[2021-07-06] MEDS ORDERED: LIDOCAINE 1% INJ 10MG/ML (20 ML MDV) ONE (07:49)
[2021-07-06 08:31] VITALS: BP 136/82; PULSE 79; RESP 16
--- NOTE | 2021-07-06 08:43 | P.PCN ---
Date of Procedure: 07/06/21 Description of Procedure: PREOPERATIVE DIAGNOSIS: Status post sleeve gastrectomy. Gastroesophageal reflux disease. Epigastric abdominal pain. Dysphagia POSTOPERATIVE DIAGNOSIS: Status post sleeve gastrectomy. Gastroesophageal reflux disease. Epigastric abdominal pain. Chronic superficial gastritis. Gastric stenosis OPERATION: Esophagogastroduodenoscopy with balloon dilation gastric sleeve, 20 mm balloon. Esophagogastroduodenoscopy with cold forceps biopsies along the antrum. SURGEON: Magy Park MD ANESTHESIA: MAC. INDICATIONS: The patient is a 31-year-old female who presents with a history of sleeve gastrectomy with abdominal pain and dysphagia. Benefits and risks of the procedure were described. Informed consent was obtained. DESCRIPTION: The patient was brought into the endoscopy suite and laid in the left lateral decubitus position. An Olympus gastroscope was passed along the posterior oropharynx down to the distal esophagus where the squamocolumnar junction was at 37 centimeters from the incisors remarkable for chronic erosive esophagitis, LA grade A without ulceration. Minimal narrowing along the angularis incisura was identified. A [employer] 20 mm balloon was used to dilate along the gastric stenosis. Chronic gastritis albeit mild was found along the antrum with cold biopsies obtained. The first through third portion of the duodenum was examined and unremarkable. The scope again had easily retroflexed along the antrum. The stomach was desufflated. The patient tolerated the procedure well. FINDINGS: No acute ulceration found along her sleeve. No corkscrewing sleeve gastrectomy. Squamocolumnar junction at 37 cm from the incisors. Minimal narrowing along the angularis incisura with dilation, 20 mm balloon LA grade A erosive esophagitis. No active duodenitis. Chronic gastritis. RECOMMENDATIONS: Upper endoscopy as needed. Omeprazole 40 mg daily Plan - Discharge Summary Discharge Rx Participant: No New Discharge Prescriptions: New Omeprazole [PriLOSEC] 40 mg PO DAILY #14 cap Continue HYDROcodone/APAP 10-325MG [[place] 10-325] 1 tab PO Q6HR PRN PRN Reason: Pain EPINEPHrine (Auto Inject) [Epipen] 0.3 mg IM ONCE PRN PRN Reason: Anaphylaxis Vitamin A [Vitamin A (8,000 Units = 2,400 MCG)] 10,000 unit PO DAILY Erenumab-Aooe [Aimovig Autoinjector] 70 mg SQ QMONTHLY Ergocalciferol [Vitamin D2 (1250 Mcg = 85949 Iu)] 50,000 unit PO WEEKLY Discharge Medication List EPINEPHrine (Auto Inject) [Epipen] 0.3 mg IM ONCE PRN 04/28/20 [History] HYDROcodone/APAP 10-325MG [[place] 10-325] 1 tab PO Q6HR PRN 04/28/20 [History] Erenumab-Aooe [Aimovig Autoinjector] 70 mg SQ QMONTHLY 12/10/20 [History] Ergocalciferol [Vitamin D2 (1250 Mcg = 81735 Iu)] 50,000 unit PO WEEKLY 06/09/21 [History] Vitamin A [Vitamin A (8,000 Units = 2,400 MCG)] 10,000 unit PO DAILY 06/09/21 [History] Omeprazole [PriLOSEC] 40 mg PO DAILY #14 cap 07/06/21 [Rx] Follow up Appointment(s)/[place](s[place] [facility] [place] - 07/15/21 Patient Instructions/Handouts: Esophageal Dilation (GEN), Gastritis (DC) Discharge Disposition: HOME SELF-CARE
== END 2021-07-06 09:27 | disposition home or self-care (01) ==
LOC: ORWHC2ENDO 07:08
PROVIDERS: ATTEND Surgery Plastic and Reconstructive Surgery
DX: K21.9 Gastro-esophageal reflux disease without esophagitis (principal); I10 Essential (primary) hypertension
CPT/HCPCS: 43239; 43249; 81025; 88305; J2001; J2704; C1726

== ENCOUNTER → 2021-07-15 | Outpatient (CLI) | payer OTHER ==
--- NOTE | 2021-07-15 16:24 | P.BASOAP ---
Subjective Progress Note Date: 07/15/21 DATE OF SERVICE: 07/15/2021 CHIEF COMPLAINT: Status post sleeve gastrectomy HISTORY OF PRESENT ILLNESS: Razia Lilly is a 31-year-old female status post sleeve gastrectomy, 05/04/21. She is 2 months out. She still reports dysphagia following her upper endoscopy and dilation. She reports keeping food down. She has limited weight loss. At height of 5 feet 7 inches, her ideal body weight is 140 pounds. Her highest weight is 300 pounds with body mass index 47.1. She comes in 248 pounds from 251 pounds, 2 weeks ago. She has lost 3 pounds in 2 weeks. Her body mass index is 39.0. Lifetime weight loss of 52 pounds. Percent lifetime weight loss of 36%. She is 90 pounds overweight. PHYSICAL EXAM: VITAL SIGNS: Height 5 foot 7 inches, weight 248 pounds. BMI 39.0 Vital Signs Temp 98.6 F 07/15/21 16:29 Pulse 80 07/15/21 16:29 Resp 16 07/15/21 16:29 BP 143/94 07/15/21 16:29 Pulse Ox GENERAL: Well-developed in no acute distress. HEENT: No scleral icterus. Extraocular movements grossly intact. Hears conversational speech. No nasal drainage. NECK: Supple without lymphadenopathy. CHEST: Nonlabored respirations with equal bilateral excursions. CARDIOVASCULAR: 2+ radial pulses. ABDOMEN: Incisions granulated. MUSCULOSKELETAL: No clubbing, cyanosis. NEURO: No focal or lateralizing signs. Cranial nerves 2 through 12 grossly within normal limits. PSYCH: Appropriate affect. Alert and oriented to person, place and time. SKIN: Good skin turgor. Well perfused. EGD FINDINGS: No acute ulceration found along her sleeve. No corkscrewing sleeve gastrectomy. Squamocolumnar junction at 37 cm from the incisors. Minimal narrowing along the angularis incisura with dilation, 20 mm balloon LA grade A erosive esophagitis. No active duodenitis. Chronic gastritis. Final Pathologic Diagnosis STOMACH, ANTRUM, BIOPSY: Mild chronic gastritis. No Helicobacter organisms seen on H+E staining. ASSESSMENT: 1. Morbid obesity due to excess calories 2. Body mass index of 47.1, initial to 39.5 3. Hypertensive heart disease. 4. Migraines 5. Spina Bifida 6. Osteoarthritis of the hips 7. Osteoarthritis of the knees. 8. Vitamin D deficiency 9. Status post sleeve gastrectomy 10. Vitamin A deficiency PLAN: 1. She still has dysphagia. Recommend esophogram for motility. 2. Alternatives of gastric bypass reviewed. Assessment/Plan Plan: Date: Initial Weight: 117.48 kg Initial BMI: Current Weight: Current BMI: Type of Surgery: Total Volume in Band: Previous Volume: Volume Removed: Volume Added: Band Size:
[2021-07-15 16:31] VITALS: BP 143/94; PULSE 80; RESP 16; TEMP 98.6; BMI 38.9
== END ==
LOC: BARWHC3 15:38
PROVIDERS: ATTEND Surgery Plastic and Reconstructive Surgery
DX: E66.01 Morbid (severe) obesity due to excess calories (principal); Z68.39 Body mass index [BMI] 39.0-39.9, adult; I11.9 Hypertensive heart disease without heart failure; G43.909 Migraine, unspecified, not intractable, without status migrainosus; Q05.9 Spina bifida, unspecified; M17.0 Bilateral primary osteoarthritis of knee; M16.0 Bilateral primary osteoarthritis of hip; E55.9 Vitamin D deficiency, unspecified; Z98.84 Bariatric surgery status; E50.9 Vitamin A deficiency, unspecified; Z91.018 Allergy to other foods
CPT/HCPCS: 99211

== ENCOUNTER → 2021-07-29 | Outpatient (CLI) | payer OTHER ==
--- NOTE | 2021-07-29 17:03 | P.BASOAP ---
Subjective Progress Note Date: 07/29/21 DATE OF SERVICE: 07/29/2021 CHIEF COMPLAINT: Status post sleeve gastrectomy HISTORY OF PRESENT ILLNESS: Razia Lilly is a 31-year-old female status post sleeve gastrectomy, 05/04/21. She is less than 3 months out. She reports not eating and drinking enough. She brings in her food log. She reports vomiting after eating anything. At height of 5 feet 7 inches, her ideal body weight is 140 pounds. Her highest weight is 300 pounds with body mass index 47.1. She comes in 248 pounds unchanged from 1 month ago. Her body mass index is 39.0. Lifetime weight loss of 52 pounds. Percent lifetime weight loss of 36%. She is 90 pounds overweight. PHYSICAL EXAM: VITAL SIGNS: Height 5 foot 7 inches, weight 248 pounds. BMI 39.0 Vital Signs Temp 97.6 F 07/29/21 17:07 Pulse 80 07/29/21 17:07 Resp 16 07/29/21 17:07 BP 148/100 07/29/21 17:07 Pulse Ox GENERAL: Well-developed in no acute distress. HEENT: No scleral icterus. Extraocular movements grossly intact. Hears conversational speech. No nasal drainage. NECK: Supple without lymphadenopathy. CHEST: Nonlabored respirations with equal bilateral excursions. CARDIOVASCULAR: 2+ radial pulses. ABDOMEN: Incisions granulated. MUSCULOSKELETAL: No clubbing, cyanosis. NEURO: No focal or lateralizing signs. Cranial nerves 2 through 12 grossly within normal limits. PSYCH: Appropriate affect. Alert and oriented to person, place and time. SKIN: Good skin turgor. Well perfused. ASSESSMENT: 1. Morbid obesity due to excess calories 2. Body mass index of 47.1, initial to 39.0 3. Hypertensive heart disease. 4. Migraines 5. Spina Bifida 6. Osteoarthritis of the hips 7. Osteoarthritis of the knees. 8. Vitamin D deficiency 9. Status post sleeve gastrectomy 10. Vitamin A deficiency PLAN: 1. Recommend CT scan of the abdomen and pelvis for abscess at her sleeve 2. Recommend esophagram for functional and topological defect of her sleeve. Assessment/Plan Plan: Date: Initial Weight: 117.48 kg Initial BMI: Current Weight: Current BMI: Type of Surgery: Total Volume in Band: Previous Volume: Volume Removed: Volume Added: Band Size:
[2021-07-29 17:09] VITALS: BP 148/100; PULSE 80; RESP 16; TEMP 97.6; BMI 38.9
== END ==
LOC: BARWHC3 16:35
PROVIDERS: ATTEND Surgery Plastic and Reconstructive Surgery
DX: E66.01 Morbid (severe) obesity due to excess calories (principal); Z68.39 Body mass index [BMI] 39.0-39.9, adult; I11.9 Hypertensive heart disease without heart failure; G43.909 Migraine, unspecified, not intractable, without status migrainosus; Q05.9 Spina bifida, unspecified; M16.0 Bilateral primary osteoarthritis of hip; M17.0 Bilateral primary osteoarthritis of knee; E55.9 Vitamin D deficiency, unspecified; E50.9 Vitamin A deficiency, unspecified; Z98.84 Bariatric surgery status; Z91.018 Allergy to other foods
CPT/HCPCS: 97803; G0463; 99211

== ENCOUNTER → 2021-07-31 | Outpatient (CLI) | payer OTHER ==
--- NOTE | 2021-07-31 09:52 | FL ---
EXAMINATION TYPE: FL barium swallow DATE OF EXAM: 07/31/2021 CLINICAL HISTORY: Status post gastric sleeve COMPARISON: 05/05/2021 Contrast: Omnipaque 2 ounces of liquid EZ opaque The patient ingested contrast without difficulty or delay. Noted are postsurgical changes of gastric sleeve. There is no evidence for leak or obstruction. There is mild luminal narrowing at the site of gastric sleeve. Contrast is noted distally into the distal stomach and proximal duodenum. IMPRESSION: Post-surgical change of gastric sleeve without evidence for obstruction or leak at this point in time. Luminal narrowing noted at the site of gastric sleeve formation. No jose luis obstruction noted at this time.
== END | disposition home or self-care (01) ==
LOC: RADUSWWP 09:00
PROVIDERS: ATTEND Surgery Plastic and Reconstructive Surgery
DX: R13.10 Dysphagia, unspecified (principal); Z98.84 Bariatric surgery status
CPT/HCPCS: 74220

== ENCOUNTER → 2021-08-05 | Outpatient (CLI) | payer OTHER ==
--- NOTE | 2021-08-05 22:29 | CT ---
EXAMINATION TYPE: CT abdomen pelvis w con DATE OF EXAM: 08/05/2021 COMPARISON: CT dated 05/06/2017 HISTORY: pain, vomiting when eating from gastric bypass 05/04/2021 CT DLP: 2384.3 mGycm Automated exposure control for dose reduction was used. TECHNIQUE: Helical acquisition of images was performed from the lung bases through the pelvis. CONTRAST: Performed with Oral Contrast and with IV Contrast, patient injected with 100 mL of Isovue 300. FINDINGS: LUNG BASES: No significant abnormality is appreciated. LIVER/GB: Enlarged liver measuring 18.9 cm. No definite hepatic focal lesion. Previous cholecystectom y. PANCREAS: No significant abnormality is seen. SPLEEN: Enlarged spleen measuring 16 cm without definite splenic focal lesion. ADRENALS: No significant abnormality is seen. KIDNEYS: No significant abnormality is seen. FREE AIR: No free air is visualized. RETROPERITONEAL ADENOPATHY: None visualized REPRODUCTIVE ORGANS: No significant abnormality is seen URINARY BLADDER: No significant abnormality is seen. PELVIC ADENOPATHY: None visualized. OSSEOUS STRUCTURES: Degenerative changes of the lower thoracic and at L5-S1 level. Bilateral L5 pars interarticularis break with grade 1 anterolisthesis of L5 over S1. BOWEL: Previous gastric bariatric surgery. Unremarkable duodenum and small bowel. Fecal loading of t he colon with dense barium seen in the distal aspect of the colon likely related to the previous rece nt barium swallow. No gross colonic abnormality. OTHER: Unremarkable abdominal aorta. No sizable ascites. Small fat-containing umbilical hernia. IMPRESSION: Enlarged liver and spleen. Gastric sleeve surgery as described above. No definite acute abnormality s een in the abdomen or the pelvis. Other incidental findings as described above.
== END | disposition home or self-care (01) ==
LOC: RADCTMAIN 17:59
PROVIDERS: ATTEND Surgery Plastic and Reconstructive Surgery
DX: R16.2 Hepatomegaly with splenomegaly, not elsewhere classified (principal); Z98.84 Bariatric surgery status; Z90.49 Acquired absence of other specified parts of digestive tract
CPT/HCPCS: 74177; Q9967

== ENCOUNTER → 2021-08-12 | Outpatient (CLI) | payer OTHER ==
[2021-08-12 17:02] VITALS: BP 117/81; PULSE 79; RESP 16; TEMP 98.7; BMI 38.7
--- NOTE | 2021-08-12 17:17 | P.BASOAP ---
Subjective Progress Note Date: 08/12/21 DATE OF SERVICE: 08/12/2021 CHIEF COMPLAINT: Status post sleeve gastrectomy HISTORY OF PRESENT ILLNESS: Razia Lilly is a 31-year-old female status post sleeve gastrectomy, 05/04/21. She is over 3 months out. She prefers soups and liquids. She reports vomiting when she sits up. She is looking into other options from her sleeve but wants to keep her sleeve. She is about to get in January 2023. At height of 5 feet 7 inches, her ideal body weight is 158 pounds. Her highest weight is 300 pounds with body mass index 47.1. She comes in 246 pounds from 248 pounds 2 weeks ago. Her body mass index is 38.7. Lifetime weight loss of 54 pounds. Percent lifetime weight loss of 38%. She is 88 pounds overweight. PAST MEDICAL HISTORY: 1. Morbid obesity due to excess calories 2. Body mass index of 47.1, initial 3. Hypertensive heart disease. 4. Migraines 5. Spina Bifida 6. Osteoarthritis of the hips 7. Osteoarthritis of the knees. PAST SURGICAL HISTORY: 1. x 4 2. Adenoidectomy 3. Tonsillectomy 4. Jaw surgery 5. Tubal ligation 6. Status post sleeve gastrectomy HOME MEDICATIONS: Home Medications Medication Instructions Recorded Confirmed EPINEPHrine (Auto Inject) [Epipen] 0.3 mg IM ONCE PRN 04/28/20 08/13/21 HYDROcodone/APAP 10-325MG [Hull 1 tab PO Q6HR PRN 04/28/20 08/13/21 10-325] Erenumab-Aooe [Aimovig 70 mg SQ QMONTHLY 12/10/20 08/13/21 Autoinjector] Ergocalciferol [Vitamin D2 (1250 50,000 unit PO WEEKLY 06/09/21 08/13/21 Mcg = 51463 Iu)] Vitamin A [Vitamin A (8,000 Units 10,000 unit PO DAILY 06/09/21 08/13/21 = 2,400 MCG)] Previous Rx's Medication Instructions Recorded Omeprazole [PriLOSEC] 40 mg PO DAILY #14 cap 07/06/21 Metoclopramide [Reglan] 10 mg PO ACHS #30 tab 07/29/21 Dicyclomine [Bentyl] 10 mg PO TID #30 capsule 08/12/21 ALLERGIES: Allergies Allergy/AdvReac Type Severity Reaction Status Date / Time pineapple Allergy Swelling Verified 07/02/21 13:07 SOCIAL HISTORY: No past tobacco use. FAMILY HISTORY: No family history of ulcerative colitis disease or Crohn's disease. Family history of morbid obesity. No lupus in the family. No reports of stomach or esophageal cancer. REVIEW OF ORGAN SYSTEMS: CONSTITUTIONAL: At height of 5 feet 7 inches, her ideal body weight is 140 pounds. Her highest weight is 300 pounds with body mass index 47.1 She comes in 258 pounds. Her body mass index is 40.6. She is 100 pounds overweight. HEENT: Denies any active troubles with vision or hearing. ENDOCRINE: Denies diabetes. No hypothyroidism. CARDIOVASCULAR: Has hypertensive heart disease. RESPIRATORY: Denies current chronic obstructive pulmonary disease. GASTROINTESTINAL: Denies any bright red blood per rectum. No diarrhea. No constipation. Has gastroesophageal reflux disease. GENITOURINARY: Denies bladder urgency. No recent blood in urine MUSCULOSKELETAL: Has lower back pain and joint pain. Has osteoarthritis of the knees. NEURO: Has headaches and migraines. No seizure disorders. PSYCH: Has depression. No suicidal ideation. RHEUMATOLOGIC: No lupus. No rheumatoid arthritis. HEMATOLOGIC: Denies any abnormal bleeding or bruising. SKIN: No rash. No skin cancer. PHYSICAL EXAM: VITAL SIGNS: Height 5 foot 7 inches, weight 246 pounds. BMI 38.7 Vital Signs Temp 98.7 F 08/12/21 16:57 Pulse 79 08/12/21 16:57 Resp 16 08/12/21 16:57 BP 117/81 08/12/21 16:57 Pulse Ox GENERAL: Well-developed in no acute distress. HEENT: No scleral icterus. Extraocular movements grossly intact. Hears conversational speech. No nasal drainage. NECK: Supple without lymphadenopathy. CHEST: Nonlabored respirations with equal bilateral excursions. CARDIOVASCULAR: 2+ radial pulses. ABDOMEN: Nontender. Nondistended. MUSCULOSKELETAL: No clubbing, cyanosis. NEURO: No focal or lateralizing signs. Cranial nerves 2 through 12 grossly within normal limits. PSYCH: Appropriate affect. Alert and oriented to person, place and time. SKIN: Good skin turgor. Well perfused. STUDIES: Esophagram independently reviewed without obstruction. No large hiatal hernia. This is my independent interpretation. CT of the abdomen and pelvis independently reviewed without abscess or fluid collection along the sleeve. No hiatal hernia identified. This is my independent interpretation. ASSESSMENT: 1. Morbid obesity due to excess calories 2. Body mass index of 47.1, initial to 38.7 3. Hypertensive heart disease. 4. Migraines 5. Spina Bifida 6. Osteoarthritis of the hips 7. Osteoarthritis of the knees. 8. Vitamin D deficiency 9. Status post sleeve gastrectomy 10. Vitamin A deficiency PLAN: 1. Recommend trial of Reglan for chronic nausea. 2. Options of Bentyl described. 3. All studies reviewed. She wants submission for a gastric bypass. Objective - Vital Signs Vital signs: Vital Signs Temp 98.7 F 08/12/21 16:57 Pulse 79 08/12/21 16:57 Resp 16 08/12/21 16:57 BP 117/81 08/12/21 16:57 Pulse Ox Intake & Output 08/11/21 08/12/21 08/12/21 18:59 06:59 18:59 Weight 112.037 kg Assessment/Plan Plan: Date: 08/12/21 Initial Weight: 117.48 kg Initial BMI: 40.5 Current Weight: 112.037 kg Current BMI: 38.7 Type of Surgery: Total Volume in Band: Previous Volume: Volume Removed: Volume Added: Band Size:
== END ==
LOC: BARWHC3 16:38
PROVIDERS: ATTEND Surgery Plastic and Reconstructive Surgery
DX: E66.01 Morbid (severe) obesity due to excess calories (principal); Z68.38 Body mass index [BMI] 38.0-38.9, adult; I11.9 Hypertensive heart disease without heart failure; G43.909 Migraine, unspecified, not intractable, without status migrainosus; Q05.9 Spina bifida, unspecified; E55.9 Vitamin D deficiency, unspecified; Z98.84 Bariatric surgery status; E50.9 Vitamin A deficiency, unspecified; Z91.018 Allergy to other foods
CPT/HCPCS: 99211

== ENCOUNTER → 2021-10-24 | Outpatient (CLI) | payer OTHER ==
[2021-10-24 23:32] LABS: T4, Free (Free Thyroxine) 1.22 ng/dL (0.800-1.800)
== END | disposition home or self-care (01) ==
LOC: LABWHC1 09:12
PROVIDERS: ATTEND Internal Medicine Interventional Cardiology
DX: E06.9 Thyroiditis, unspecified (principal)
CPT/HCPCS: 36415; 84439; 84443

== ENCOUNTER → 2021-12-09 | Outpatient (CLI) | payer OTHER ==
[2021-12-09 17:20] LABS: African American GFR (CKD) 134.7 (60.0-200.0); Albumin 4.6 g/dL (3.8-4.9); Albumin/Globulin Ratio 1.48 (1.60-3.17); Anion Gap 10.7 mmol/L (10.00-18.00); BUN/Creat Ratio 16.71 Ratio (12.00-20.00); Blood Urea Nitrogen 11.7 mg/dL (9.0-27.0); Calcium 9.5 mg/dL (8.7-10.3); Carbon Dioxide 23.3 mmol/L (20.0-27.5); Globulin 3.1 g/dL (1.6-3.3); Non-African American GFR(CKD) 116.3 (60.0-200.0); Potassium 4.2 mmol/L (3.5-5.5); Total Bilirubin 0.6 mg/dL (0.30-1.20); Total Protein 7.7 g/dL (6.2-8.2)
[2021-12-09 17:23] LABS: Basophils # (A) 0.07 X 10*3/uL (0.00-0.10); Basophils % (A) 0.9 %; Eosinophils % (A) 8.6 %; HGB 12.8 g/dL (12.0-15.0); Immature Grans, Automated 0.4 %; Lymphocytes # (A) 2.32 X 10*3/uL (0.90-5.00); Lymphocytes % (A) 28.6 %; MCH 26.2 pg (27.0-32.0); MCHC 32.8 g/dL (32.0-37.0); MCV 79.9 fL (80.0-97.0); Mean Platelet Volume 11.4 fL (9.5-12.2); Monocytes # (A) 0.36 X 10*3/uL (0.20-1.00); Monocytes % (A) 4.4 %; NRBC Per 100 WBC 0 /100 WBCS (0.0-0.0); Neutrophils # (A) 4.64 X 10*3/uL (1.80-7.70); Neutrophils % (A) 57.1 %; Platelet Count 330 X 10*3/uL (140-440); RBC 4.88 X 10*6/uL (4.10-5.20); RDW 14.4 % (11.5-14.5); WBC 8.12 X 10*3/uL (4.50-10.00)
== END | disposition home or self-care (01) ==
LOC: LABPAT 10:59
PROVIDERS: ATTEND Surgery Plastic and Reconstructive Surgery
DX: Z01.812 Encounter for preprocedural laboratory examination (principal)
CPT/HCPCS: 80053; 85025

== ENCOUNTER 2021-12-14 08:08 | Inpatient (IN) | payer OTHER ==
[~2021-12-14 08:08] MED LIST changes: +CHLORHEXIDINE GLUCONATE 15 ML CUP MUCOUS MEM PRN; +DEXAMETHASONE SOD PHOSPHATE 4 MG/ML 1 ML VIAL IV ONE; -LACTATED RINGERS 1,000 ML IV SCH; +METOCLOPRAMIDE 5 MG/ML 2 ML VIAL IVP PRN; +ONDANSETRON 4 MG/2 ML VIAL IVP ONE; +PANTOPRAZOLE 40 MG/10 ML VIAL IVP PRN; +SCOPOLAMINE 1 MG/72 HR PATCH TRANSDERM ONE
--- NOTE | 2021-12-14 08:37 | P.GSHP ---
History of Present Illness H&P Date: 12/14/21 CHIEF COMPLAINT: Status post sleeve gastrectomy HISTORY OF PRESENT ILLNESS: Razia Lilly is a 31-year-old female status post sleeve gastrectomy, 05/04/21. She has had intractable nausea and vomiting following her procedure. Despite attempts at dilation including medical treatment, patient has persistent problems with her sleeve gastrectomy. Gastric bypass is offered for correction of her symptoms. At height of 5 feet 7 inches, her ideal body weight is 158 pounds. Her highest weight is 300 pounds with body mass index 47.1. PAST MEDICAL HISTORY: 1. Morbid obesity due to excess calories 2. Body mass index of 47.1, initial 3. Hypertensive heart disease. 4. Migraines 5. Spina Bifida 6. Osteoarthritis of the hips 7. Osteoarthritis of the knees. PAST SURGICAL HISTORY: 1. x 4 2. Adenoidectomy 3. Tonsillectomy 4. Jaw surgery 5. Tubal ligation 6. Status post sleeve gastrectomy HOME MEDICATIONS: ALLERGIES: SOCIAL HISTORY: No past tobacco use. FAMILY HISTORY: No family history of ulcerative colitis disease or Crohn's disease. Family history of morbid obesity. No lupus in the family. No reports of stomach or esophageal cancer. REVIEW OF ORGAN SYSTEMS: CONSTITUTIONAL: At height of 5 feet 7 inches, her ideal body weight is 140 pounds. Her highest weight is 300 pounds with body mass index 47.1 She comes in 258 pounds. Her body mass index is 40.6. She is 100 pounds overweight. HEENT: Denies any active troubles with vision or hearing. ENDOCRINE: Denies diabetes. No hypothyroidism. CARDIOVASCULAR: Has hypertensive heart disease. RESPIRATORY: Denies current chronic obstructive pulmonary disease. GASTROINTESTINAL: Denies any bright red blood per rectum. No diarrhea. No constipation. Has gastroesophageal reflux disease. GENITOURINARY: Denies bladder urgency. No recent blood in urine MUSCULOSKELETAL: Has lower back pain and joint pain. Has osteoarthritis of the knees. NEURO: Has headaches and migraines. No seizure disorders. PSYCH: Has depression. No suicidal ideation. RHEUMATOLOGIC: No lupus. No rheumatoid arthritis. HEMATOLOGIC: Denies any abnormal bleeding or bruising. SKIN: No rash. No skin cancer. PHYSICAL EXAM: VITAL SIGNS: Height 5 foot 7 inches, weight 246 pounds. BMI 39.1 GENERAL: Well-developed in no acute distress. HEENT: No scleral icterus. Extraocular movements grossly intact. Hears conversational speech. No nasal drainage. NECK: Supple without lymphadenopathy. CHEST: Nonlabored respirations with equal bilateral excursions. CARDIOVASCULAR: 2+ radial pulses. ABDOMEN: Nontender. Nondistended. MUSCULOSKELETAL: No clubbing, cyanosis. NEURO: No focal or lateralizing signs. Cranial nerves 2 through 12 grossly within normal limits. PSYCH: Appropriate affect. Alert and oriented to person, place and time. SKIN: Good skin turgor. Well perfused. ASSESSMENT: 1. Morbid obesity due to excess calories 2. Body mass index of 47.1, initial 3. Hypertensive heart disease. 4. Migraines 5. Spina Bifida 6. Osteoarthritis of the hips 7. Osteoarthritis of the knees. 8. Vitamin D deficiency 9. Status post sleeve gastrectomy 10. Vitamin A deficiency 11. Complications of sleeve gastrectomy PLAN: 1. Gastric bypass offered for correction of complications from sleep this 2. The [place] [facility] Data was also reviewed with benefits and risks as described. 3. An 8 page second-generation bariatric consent form was reviewed in detail including potential of bleeding, infection, leaks, adequate weight loss, nutritional deficiencies which the patient demonstrated understanding of the risks. 4. A 2 week high-protein low caloric 800 kcal diet described to address hepatomegaly. 5. Preoperative labs including complete metabolic panel and CBC with type and screen recommended. 6. DVT prophylaxis per [place] [facility]. 7. Antibiotic prophylaxis. 8. Inpatient hospitalization anticipated for more than 2 nights. 9. All questions and concerns were addressed with the patient. 10. She is at elevated risk for perioperative complications due to pre-existing gastrectomy 11. Overall, patient has expressed understanding of bariatric care including postoperative diet and commitment of lifestyle. Patient should benefit from surgical intervention for correction of her morbid obesity. Past Medical History Past Medical History: Cancer, Hypertension Additional Past Medical History / Comment(s): hx sleeve gastrectomy (04/2021) and c/o nausea & vomiting., hx migraines.,spina bifida., ovarian cancer ., heart palpitations with x-tra beats-currently has event monitor on., jaw easily dislocated. History of Any Multi-Drug Resistant Organisms: None Reported Past Surgical History: Adenoidectomy, Appendectomy, Bariatric Surgery, Section, Cholecystectomy, Tonsillectomy, Tubal Ligation Additional Past Surgical History / Comment(s): C-S X 4; mass on ovary removed; extra tongue was removed at age 7; dislocated jaw x2. EGD. Sleeve Gastrectomy 05-04-21 Past Anesthesia/Blood Transfusion Reactions: No Reported Reaction Additional Past Anesthesia/Blood Transfusion Reaction / Comment(s): . Past Psychological History: No Psychological Hx Reported Smoking Status: Never smoker Past Alcohol Use History: None Reported Past Drug Use History: None Reported Additional Drug Use History / Comment(s): . - Past Family History Sister(s) Family Medical History: Cancer, Deep Vein Thrombosis (DVT), Pulmonary Embolus Additional Family Medical History / Comment(s): thyroid cancer Medications and Allergies Home Medications Medication Instructions Recorded Confirmed Type EPINEPHrine (Auto Inject) [Epipen] 0.3 mg IM ONCE PRN 04/28/20 12/08/21 History Erenumab-Aooe [Aimovig 70 mg SQ QMONTHLY 12/10/20 12/08/21 History Autoinjector] Ergocalciferol [Vitamin D2 (1250 50,000 unit PO WEEKLY 06/09/21 12/08/21 History Mcg = 75035 Iu)] Multivitamins, Thera [Multivitamin 1 tab PO DAILY 11/25/21 12/08/21 History (formulary)] Calcium Carbonate/Vitamin D3 1 tab PO DAILY 12/08/21 12/08/21 History [Calcium 500 mg Chewable Tablet] Metoprolol Succinate (ER) [Toprol 25 mg PO DAILY 12/08/21 12/08/21 History Xl] Vitamin C -Unknown Dose 1 tab PO DAILY 12/08/21 History Allergies Allergy/AdvReac Type Severity Reaction Status Date / Time pineapple Allergy Swelling Verified 12/08/21 08:44
[2021-12-14] MEDS ORDERED: SCOPOLAMINE 1 MG/72 HR PATCH TRANSDERM PRN (09:25)
[2021-12-14] MEDS ORDERED: GABAPENTIN 300 MG CAP PO PRN (09:25)
[2021-12-14] MEDS ORDERED: ACETAMINOPHEN TAB 500 MG TAB PO PRN (09:25)
[2021-12-14] MEDS: LACTATED RINGERS 1,000 ML IV SCH (11:10)
[2021-12-14] MEDS: HEPARIN SODIUM,PORCINE/PF 5,000 UNIT/0.5 ML SYRINGE SQ SCH ×2 (11:37→20:23)
[2021-12-14] MEDS ORDERED: KETAMINE 10 MG/ML 20 ML VIAL ONE (12:25)
[2021-12-14] MEDS ORDERED: NEOSTIGMINE 1 MG/ML 10 ML VIAL ONE (12:25)
[2021-12-14] MEDS ORDERED: HYDROmorphone (PF) 1 MG/ML ONE (12:25)
[2021-12-14] MEDS ORDERED: LIDOCAINE 2% INJ 20 MG/ML (2 ML VIAL) ONE (12:25)
[2021-12-14] MEDS ORDERED: MIDAZOLAM 2 MG/2 ML VIAL ONE (12:25)
[2021-12-14] MEDS ORDERED: GLYCOPYRROLATE 0.2 MG/ML 2 ML VIAL ONE (12:25)
[2021-12-14] MEDS ORDERED: ROCURONIUM 10 MG/ML (5 ML VIAL) IV ONE (12:25)
[2021-12-14] MEDS ORDERED: fentaNYL (PF) 50 MCG/ML 2 ML AMP ONE (12:25)
[2021-12-14] MEDS ORDERED: METOPROLOL TARTRATE 5 MG/5 ML VIAL IVP ONE (12:25)
[2021-12-14] MEDS ORDERED: PROPOFOL 10 MG/ML 20 ML VIAL IV ONE (12:25)
[2021-12-14] MEDS ORDERED: SUCCINYLCHOLINE CHLORIDE 100 MG/5 ML SYR IV ONE (12:25)
[2021-12-14] MEDS ORDERED: BUPIVACAIN-EPI 0.25%-1:200,000 30 ML VIAL SQ ONE (12:31)
[2021-12-14] MEDS ORDERED: NALOXONE 0.4 MG/ML 1 ML VIAL IV PRN ×2 (16:05→21:22)
[2021-12-14] MEDS ORDERED: SIMETHICONE 40 MG/0.6 ML DROPS 2,000 MG/30 ML BOTTLE PO PRN (16:05)
[2021-12-14] MEDS ORDERED: diphenhydrAMINE 50 MG/ML 1 ML VIAL IVP PRN (16:05)
[2021-12-14] MEDS ORDERED: 0.9% NACL WITH KCL 20 MEQ/L 1,000 ML IV SCH (16:15)
--- NOTE | 2021-12-14 16:20 | P.OP ---
Date of Procedure: 12/14/21 Description of Procedure: SURGEON: YESSY ANGULO MD PREOPERATIVE DIAGNOSES: 1. Morbid obesity due to excess calories 2. Body mass index of 47.1, initial 3. Hypertensive heart disease. 4. Migraines 5. Spina Bifida 6. Osteoarthritis of the hips 7. Osteoarthritis of the knees. 8. Vitamin D deficiency 9. Status post sleeve gastrectomy 10. Vitamin A deficiency 11. Complications of sleeve gastrectomy 12. Intractable nausea vomiting POSTOPERATIVE DIAGNOSES: 1. Morbid obesity due to excess calories 2. Body mass index of 47.1, initial 3. Hypertensive heart disease. 4. Migraines 5. Spina Bifida 6. Osteoarthritis of the hips 7. Osteoarthritis of the knees. 8. Vitamin D deficiency 9. Status post sleeve gastrectomy 10. Vitamin A deficiency 11. Complications of sleeve gastrectomy 12. Intractable nausea vomiting 13. Intra-abdominal adhesions from greater omentum to anterior abdominal wall, lower abdomen 14. Perigastric adhesions 15. Splenomegaly OPERATION: 1. Robotic assisted da Eri Xi laparoscopic Hector-en-Y gastric bypass, 100cm antecolic antegastric Hector limb, with 25 mm EEA. 2. Laparoscopic extensive lysis of adhesions 30 minutes. 3. Intraoperative esophagogastrojejunoscopy. ANESTHESIA: General with local ESTIMATED BLOOD LOSS: 10 mL SPECIMENS REMOVED: None. COMPLICATIONS: NONE. FINDINGS: 1. Perigastric adhesions adding 30 minutes to her case. 2. Bypass performed using 100 cm hector limb secondary to avoid increased tension at 150 cm. 3. Schofield defect and jejunojejunostomy closed 4. Leak test negative with gastrojejunal anastomosis patent and hemostatic. 5. Gastric pouch resected using 2 green loads, micro pouch, 2 cm 6. Perigastric adhesions including at the mid body of the splenic extract creating a functional intermittent obstruction. Sleeve divided above adhesion point. INDICATIONS: Razia Lilly is a 31-year-old female status post sleeve gastrectomy, 05/04/21. She has intractable nausea and vomiting following her procedure. Despite attempts at dilation including medical treatment, patient has persistent problems with her sleeve gastrectomy including intractable nausea vomiting. Gastric bypass was offered for correction of her symptoms. At height of 5 feet 7 inches, her ideal body weight is 158 pounds. Her highest weight is 300 pounds with body mass index 47.1. She now presents to undergo robotic assisted gastric bypass. A second-generation bariatric consent form was described in detail including the possibility of protein malnutrition, leaks, gastrojejunal stricture, venous thrombosis, need for further surgery for which she demonstrated understanding. Benefits and risks of the procedure were described at length. Informed consent was obtained. DESCRIPTION: The patient was brought into the operating room theater. Preoperatively she had received heparin subcutaneously for DVT prophylaxis. Additionally she had undergone Peridex oral solution as an oral decontaminant. After general induction, the abdomen was prepped and draped in standard sterile fashion. Ioban draping was placed along the abdomen. A robotic da Eri Xi system was prepped and primed. Proposed port sites were marked with indelible marker along the anterior axillary line bilaterally, mid clavicular line bilaterally with each port marked 10 cm from each other. The robotic stapler port was marked for the right midclavicular line including along the left midclavicular line. A 5 mm 0 degrees laparoscopic trocar entry was performed along the left upper quadrant. The abdomen was insufflated to 15 mmHg pressure, which she tolerated well. Diagnostic laparoscopy demonstrated no injury to bowel, viscera, or mesentery. The liver surface was unremarkable. No evidence of large prominent hiatal hernia was encountered. Separately, her previous sleeve gastrectomy was unremarkable. No small bowel dilation was identified or evidence of bowel obstruction. Mild splenomegaly was identified. An 8 mm camera port was placed left lateral to the umbilicus at the epigastrium, 13 cm distal to the xiphoid. Incisions were placed along previous trocar sites. Next, 12-mm robot stapler port was placed along the right mid abdomen. An 12 mm port was exchanged along the left upper quadrant. An 8 mm port was placed on the left lateral abdominal wall under direct localization. Please note that the ports were placed 18 to 20 cm away from the target anatomy of the stomach. Care was taken to check that each robotic arm was safely away from collision with the bed or the patient. At the epigastrium, a medium sized Jose liver retractor was placed under direct visualization with the [employer] Specialist placed under the right shoulder of the patient. The patient was repositioned in reverse Trendelenburg position at 21-degress after lowering the bed. The robot was docked over the patient. Using grasper for arm 3, a grasper for arm 1, including vessel sealer for arm 4, the robotic system was docked and primed as described. Instruments were interchanged by the [employer] assistant manager including endoscissors, the needle wrecker driver, and stapler. I had sat at the console. Next, the transverse mesocolon was reflected into the upper abdomen preparing for the jejunojejunostomy portion of the case. The ligament of Treitz was identified and measured 60 cm antegrade and marked using 3-0 Silk. The jejunum was divided at the 60 cm point using 60-mm white loads above the suture measurement. The biliopancreatic limb was held in place. The Hector limb was measured 100 cm in an antegrade fashion to avoid tension along the proposed gastrojejunal anastomosis. At 100 cm along the anti-mesenteric border of the Hector limb, a jejunojejunostomy was proposed whereby enterotomies were created along the biliopancreatic limb including the Hector limb using a Bovie cautery. A stay suture of 3-0 Silk was placed to align and create the anastomosis. The enterotomies along the anti-mesenteric borders were created followed by unidirectional fire from the patient's right side using 60 mm blue load Smart technology robotic stapler. The jejunojejunostomy was found to be hemostatic. The enterotomy was closed after horizontal mattress stitch of 3-0 silk used to elevate the enterotomy followed by closure with the robotic stapler blue loads. The jejunal limb was temporarily tacked along the left upper quadrant. Attention was now brought to the creation of the gastrojejunostomy. Perigastric adhesions from her sleeve gastrectomy was identified and addressed using vessel sealer and blunt dissection. Lysis of adhesions over 30 minutes was also performed adding complexity to her case. Once all the adhesions along the superior and mid body of the stomach were addressed, preparation for a gastric pouch was performed. Along the lesser curvature of the stomach between the second and third veins and above the angularis incisura, dissection was made along the retrogastric space to allow first firing of the robotic staple. Dense posterior gastric adhesions were identified, hence increasing the complexity of her case. A total of 2 green loads stapler were used to divide the stomach from the previous gastric sleeve. Hemostasis was excellent. The robot was temporarily undocked for completion of the gastrojejunostomy using an Orvil. The patient was then prepared for placement of a Orvil. A 25-mm Orvil was selected for placement by the nurse header boss. The Orvil tubing was placed anterior to the staple line of the gastric pouch and brought out through the left inferior lateral port. The Orvil was then carefully and successfully navigated with the help of the nurse header boss into the gastric pouch. The sutures were identified and divided. The tubing was from the 25 mm anvil. Using aseptic technique all instruments including port sites were exchanged. As the Orvil had been placed, the blind jejunal limb was brought proximally into the upper abdomen. The transverse mesocolon was minimally bulky and undisturbed. No torsion was found upon the Hector limb. No tension was identified as the limb was brought along the upper abdomen. The blind jejunal limb was opened using Bovie cautery. The 25-mm EEA stapler was brought through the left anterior lateral port site from the left side. Please note that the trocars from the Orvil tubing, including the port, were removed to minimize contamination from the oral lorena. The EEA stapler was brought through the open jejunal limb and its needle was deployed at the antimesenteric border where the anvil were mated for approximately 1 minute upon firing. The stapler was removed after irrigating the shaft of the instrument with warm normal saline. Donuts were found to be intact and thick on both sides. The da Eri XiI robot was then re-docked. The open jejunal limb defect was closed using 60 mm white loads after releasing any tension from the blind jejunal limb. Reinforcement sutures were placed along the gastrojejunal anastomosis at the 9:00, 12:00 and 3 o'clock position using 3-0 Vicryl The [place] and jejunojejunostomy mesenteric defects were closed using nonabsorbable 2-o VLOC. I then went to the head of the bed to perform the esophagogastrojejunoscopy and a leak test. An Olympus gastroscope was passed along the posterior oropharynx which was unremarkable for any injury to the vocal cords. The scope was passed down to the proximal portion of the pouch, whereby no active bleeding was encountered. Excellent visualization of the gastrojejunostomy anastomosis, including the Hector limb was encountered with endoscopic image obtained. The anastomosis was found to be patent. The gastrointestinal tract was desufflated. No evidence of intraoperative leak was encountered as the gastric pouch and anastomosis were submerged under normal saline solution. The robot was then undocked. I then went back to the bedside of the patient, whereby with coordinated effort of the [employer] assistant manager, irrigation was aspirated from the upper abdominal cavity. Tisseel was placed circumferentially over the anastomosis of the g astrojejunostomy. The fascial defect of the EEA stapler was closed using Jason Dumont and 0 Vicryl. All instruments and pneumoperitoneum were evacuated from the abdominal cavity. The port correlating with the EEA stapler device was copiously irrigated normal saline solution and hydrogen peroxide. The rest of incisions were reapproximated using by 4-0 Monocryl in an interrupted subcuticular fashion. Local anesthetic was infiltrated along the skin for postop analgesia. Liquid glue was applied to the skin. OptiFoam dressing was placed along the EEA stapler site. At the end of the procedure, needle, sponge and instrument count had been verified correct by the surgical specialist. She had tolerated the procedure well and was extubated and taken to the postanesthesia unit in stable condition.
[2021-12-14] MEDS: HYDROmorphone 0.5 MG/0.5 ML SYRINGE IVP PRN ×2 (16:30→16:38)
[2021-12-14] MEDS ORDERED: ONDANSETRON 4 MG/2 ML VIAL IVP ONE (16:33)
[2021-12-14] MEDS: 0.9% NACL WITH KCL 20 MEQ/L 1,000 ML IV SCH (18:19)
[2021-12-14] MEDS: ACETAMINOPHEN IV (For NPO) 1,000 MG in EMPTY BAG 1 BAG IVPB SCH ×2 (18:19→23:44)
[2021-12-14] MEDS: ONDANSETRON 4 MG/2 ML VIAL IVP SCH ×2 (18:20→23:03)
[2021-12-14] MEDS: HYDROmorphone 1 MG/ML 1 ML SYRINGE IVP PRN ×2 (20:21→23:47)
[2021-12-14] MEDS: PANTOPRAZOLE 40 MG/10 ML VIAL IV SCH (20:22)
[2021-12-14] MEDS: ALBUTEROL NEBULIZED 2.5 MG/3 ML INHALATION SCH (20:44)
[2021-12-14 21:14] LABS: Glucose,Whole Blood 235 mg/dL (70-110)
[2021-12-14] MEDS ORDERED: SODIUM CHLORIDE 0.9% 2,000 ML IV ONE (21:22)
[2021-12-14 21:52] LABS: Basophils % (A) 0 %; Eosinophils # (A) 0.1 k/uL (0-0.7); Eosinophils % (A) 0 %; HGB 10.3 gm/dL (11.4-16.0); Lymphocytes # (A) 0.9 k/uL (1.0-4.8); Lymphocytes % (A) 5 %; MCH 26.7 pg (25.0-35.0); MCHC 32.1 g/dL (31.0-37.0); MCV 83.1 fL (80.0-100.0); Mean Platelet Volume 8.7; Monocytes # (A) 0.9 k/uL (0-1.0); Monocytes % (A) 4 %; Neutrophils # (A) 18.7 k/uL (1.3-7.7); Neutrophils % (A) 90 %; Platelet Count 414 k/uL (150-450); RBC 3.85 m/uL (3.80-5.40); RDW 14.5 % (11.5-15.5); WBC 20.7 k/uL (3.8-10.6)
[2021-12-14] MEDS ORDERED: fentaNYL PCA 500 MCG/50 ML BAG IV PRN (22:00)
[2021-12-15] MEDS: ACETAMINOPHEN IV (For NPO) 1,000 MG in EMPTY BAG 1 BAG IVPB SCH ×3 (00:50→11:30)
[2021-12-15] MEDS: 0.9% NACL WITH KCL 20 MEQ/L 1,000 ML IV SCH ×4 (00:53→17:13)
[2021-12-15] MEDS: HYDROmorphone 1 MG/ML 1 ML SYRINGE IVP PRN ×6 (03:20→21:01)
[2021-12-15] MEDS ORDERED: SODIUM CHLORIDE 0.9% 1,000 ML IV ONE (03:31)
[2021-12-15] MEDS: ONDANSETRON 4 MG/2 ML VIAL IVP SCH ×3 (05:15→17:07)
[2021-12-15 05:46] LABS: Glucose,Whole Blood 223 mg/dL (70-110)
[2021-12-15 06:21] LABS: Glucose,Whole Blood 217 mg/dL (70-110)
[2021-12-15 06:24] LABS: African American GFR (CKD) >90 (>60 ml/min/1.73 sqM); Anion Gap 4 mmol/L; Blood Urea Nitrogen 13 mg/dL (7-17); Calcium 7.3 mg/dL (8.4-10.2); Carbon Dioxide 22 mmol/L (22-30); Chloride 110 mmol/L (98-107); Magnesium 1.5 mg/dL (1.6-2.3); Non-African American GFR(CKD) >90 (>60 ml/min/1.73 sqM); Phosphorus 3.1 mg/dL (2.5-4.5); Potassium 4.5 mmol/L (3.5-5.1); Sodium 136 mmol/L (137-145)
[2021-12-15 06:44] LABS: Basophils % (A) 0 %; Eosinophils # (A) 0.2 k/uL (0-0.7); Eosinophils % (A) 2 %; HCT 25.6 % (34.0-46.0); Hypochromasia Slight; Lymphocytes # (A) 1.1 k/uL (1.0-4.8); Lymphocytes % (A) 9 %; MCH 27.2 pg (25.0-35.0); MCHC 31.9 g/dL (31.0-37.0); MCV 85.2 fL (80.0-100.0); Mean Platelet Volume 9.3; Monocytes # (A) 0.3 k/uL (0-1.0); Monocytes % (A) 3 %; Neutrophils # (A) 10.8 k/uL (1.3-7.7); Neutrophils % (A) 87 %; Platelet Count 315 k/uL (150-450); WBC 12.5 k/uL (3.8-10.6)
[2021-12-15 06:47] LABS: HGB 8.2 gm/dL (11.4-16.0)
[2021-12-15] MEDS: METOCLOPRAMIDE 5 MG/ML 2 ML VIAL IVP PRN ×2 (06:49→17:58)
[2021-12-15] MEDS ORDERED: Magnesium Replacement Protocol 1 EACH MISC MISCELLANE PRN (07:13)
[2021-12-15] MEDS: ALBUTEROL NEBULIZED 2.5 MG/3 ML INHALATION SCH ×4 (07:29→19:27)
--- NOTE | 2021-12-15 07:55 | P.PN ---
Progress Note - Text Progress Note Date: 12/14/21 Patient seen and evaluated. A-team at bedside. Per report, patient had fainted onto bed after coming from rest room. EKG reviewed and normal sinus rhythm. Labs being dran at bedside. Patient reports appropriate incisional pain. MID WIFE ordered with parameters of blood pressure over 120s systolic. Comfortable in appearance. Recommend 2-liter fluid bolus due to pre-existing dehydration. Discussion with nurse and A-team and patient.
[2021-12-15] MEDS: MAGNESIUM SULFATE-D5W PMX 1 GM in DEXTROSE/WATER 1 100ML.BAG IVPB SCH ×2 (08:08→09:31)
[2021-12-15] MEDS: PANTOPRAZOLE 40 MG/10 ML VIAL IV SCH ×2 (08:08→21:01)
[2021-12-15] MEDS: LACTATED RINGERS 1,000 ML IV SCH (08:15)
[2021-12-15] MEDS ORDERED: METOPROLOL SUCCINATE (ER) 25 MG TAB.ER.24H PO SCH (09:00)
[2021-12-15] MEDS ORDERED: HEPARIN SODIUM,PORCINE/PF 5,000 UNIT/0.5 ML SYRINGE SQ SCH (09:00)
[2021-12-15] MEDS: SODIUM FERRIC GLUCONAT-SUCROSE 125 MG in SODIUM CHLORIDE 0.9% 100 ML IVPB SCH (11:22)
[2021-12-15 11:36] LABS: Glucose,Whole Blood 223 mg/dL (70-110)
[2021-12-15] MEDS: INSULIN ASPART (NovoLOG) 100 UNIT/ML VIAL SQ SCH ×3 (11:37→21:01)
--- NOTE | 2021-12-15 11:49 | P.PN ---
Subjective Progress Note Date: 12/15/21 CHIEF COMPLAINT: Morbid obesity HISTORY OF PRESENT ILLNESS: Razia Lilly is a 31-year-old female status post conversion from sleeve gastrectomy to gastric bypass, 12/14/21. This morning, patient was tranferred to the ICU due to hypotension, systolic 70-80s. Patient after assessment last night developed nausea and vomiting with hematemesis prior to her hypotension. Patient is evaluated in the intensive care unit with family at bedside. She reports abdominal binder caused more pain. No recent emesis since in the ICU. Hgb down 10 to 8.0 after 3 fluid liter boluses. REVIEW OF ORGAN SYSTEMS: No fevers or chills. Has nasuea. No bowel movements. PHYSICAL EXAM: VITAL SIGNS: Reviewed GENERAL: Well-developed in no acute distress. HEENT: No scleral icterus. Extraocular movements grossly intact. Hears conversational speech. No nasal drainage. NECK: Supple without lymphadenopathy. CHEST: Nonlabored respirations with equal bilateral excursions. CARDIOVASCULAR: 2+ radial pulses. Tachycardic ABDOMEN: Dressing intact. No peritonitis. Appropriate left upper quadrant incisional pain. MUSCULOSKELETAL: No clubbing, cyanosis. NEURO: No focal or lateralizing signs. Cranial nerves 2 through 12 grossly within normal limits. PSYCH: Appropriate affect. Alert and oriented to person, place and time. SKIN: Good skin turgor. Well perfused. LABS: Reviewed. Hgb down 10 to 8.0 EKG: Normal sinus rhythm from last [facility] ASSESSMENT: 1. Morbid obesity due to excess calories 2. Body mass index of 47.1, initial t 3. Hypertensive heart disease. 4. Migraines 5. Spina Bifida 6. Osteoarthritis of the hips 7. Osteoarthritis of the knees. 8. Vitamin D deficiency 9. Status post sleeve gastrectomy 10. Vitamin A deficiency 11. Complications of sleeve gastrectomy 12. Conversion from sleeve to gastric bypass PLAN: 1. Bleeding secondary to acute nausea vomiting causing re-bleed at gastrojejunal anastomosis 2. Hold all blood thinners. Patient reports getting blood thinner prior to surgery. 3. SCDs only 4. Antiemetics for nausea. Nausea usually resolves 24 to 48 hrs after surgery. Continue supportive care. 5. Continue ICU care 6. Monitor Hgb 7. Npo except ice chips 8. Care plan discussed and reviewed with patient and fiance at bedside. 9. Continue hospitalization Objective - Vital Signs Vital signs: Vital Signs Temp 98.2 F 12/15/21 08:00 Pulse 129 H 12/15/21 10:00 Resp 33 H 12/15/21 10:00 BP 132/76 12/15/21 10:00 Pulse Ox 97 12/15/21 10:00 FiO2 Intake & Output 12/14/21 12/15/21 12/15/21 18:59 06:59 18:59 Intake Total 1950 4600 700 Output Total 10 200 650 Balance 1940 4400 50 Weight 106.6 kg Intake: IV 1950 350 0.9% NaCl with KCl 20 Meq 350 /l 1,000 ml @ 150 mls/hr IV .Q6H40M [facility] Rx#: [id number] Intake, IV Titration 4600 200 Amount 0.9% NaCl with KCl 20 Meq 1350 /l 1,000 ml @ 150 mls/hr IV .Q6H40M [facility] Rx#: [id number] ACETAMINOPHEN IV (For NPO 200 ) 1,000 mg In Empty Bag 1 bag @ 400 mls/hr IVPB Q6HR [facility] Rx#:[id number] Magnesium Sulfate-D5w Pmx 200 1 gm In Dextrose/Water 1 100ml.bag @ 100 mls/hr IVPB Q1H [facility] Rx#: [id number] Sodium Chloride 0.9% 1, 1000 000 ml @ 999 mls/hr IV . Q1H1M [facility] Rx#:[id number] Sodium Chloride 0.9% 2, 2000 000 ml @ 999 mls/hr IV . Q2H1M [facility] Rx#:[id number] ceFAZolin 2 gm In Sodium 50 Chloride 0.9% 50 ml @ 100 mls/hr IVPB Q8H [facility] Rx#: [id number] Oral 0 TPN/PPN 150 0.9% NaCl with KCl 20 Meq 150 /l 1,000 ml @ 150 mls/hr IV .Q6H40M [facility] Rx#: [id number] Output: Urine 200 550 Emesis 100 Estimated Blood Loss 10 Other: # Voids 1 # Bowel Movements 0 0 - Labs CBC & Chem 7: 12/15/21 06:36 12/15/21 06:03 Labs: Abnormal Lab Results - Last 24 Hours (Table) 12/14/21 12/14/21 12/15/21 Range/Units 21:12 21:14 05:44 WBC 20.7 H (3.8-10.6) k/uL RBC (3.80-5.40) m/uL Hgb 10.3 L (11.4-16.0) gm/dL Hct 32.0 L (34.0-46.0) % Neutrophils # 18.7 H (1.3-7.7) k/uL Lymphocytes # 0.9 L (1.0-4.8) k/uL Sodium (137-145) mmol/L Chloride (98-107) mmol/L POC Glucose (mg/dL) 235 H 223 H (70-110) mg/dL Plasma Lactic Acid Giovanni (0.7-2.0) mmol/L Calcium (8.4-10.2) mg/dL Magnesium (1.6-2.3) mg/dL 12/15/21 12/15/21 12/15/21 Range/Units 06:03 06:20 06:36 WBC 12.5 H (3.8-10.6) k/uL RBC 3.00 L (3.80-5.40) m/uL Hgb 8.2 L D (11.4-16.0) gm/dL Hct 25.6 L (34.0-46.0) % Neutrophils # 10.8 H (1.3-7.7) k/uL Lymphocytes # (1.0-4.8) k/uL Sodium 136 L (137-145) mmol/L Chloride 110 H (98-107) mmol/L POC Glucose (mg/dL) 217 H (70-110) mg/dL Plasma Lactic Acid Giovanni (0.7-2.0) mmol/L Calcium 7.3 L (8.4-10.2) mg/dL Magnesium 1.5 L (1.6-2.3) mg/dL 12/15/21 12/15/21 Range/Units 07:30 11:33 WBC (3.8-10.6) k/uL RBC (3.80-5.40) m/uL Hgb (11.4-16.0) gm/dL Hct (34.0-46.0) % Neutrophils # (1.3-7.7) k/uL Lymphocytes # (1.0-4.8) k/uL Sodium (137-145) mmol/L Chloride (98-107) mmol/L POC Glucose (mg/dL) 223 H (70-110) mg/dL Plasma Lactic Acid Giovanni 2.6 H* (0.7-2.0) mmol/L Calcium (8.4-10.2) mg/dL Magnesium (1.6-2.3) mg/dL
--- NOTE | 2021-12-15 11:57 | P.CNPUL ---
History of Present Illness Consult date: 12/15/21 Chief complaint: Syncope/hypotension History of present illness: This is a 31-year-old female patient with history of morbid obesity and the jun ent had an elective Marco-en-Y gastric bypass surgery for intractable nausea and emesis following a previous sleep gastrectomy. The patient has been having persistent problems since his sleep gastrectomy. As such, gastric bypass was offered. The patient underwent the surgery yesterday and this was a robotic- assisted Marco-en-Y gastric bypass surgery associated with laparoscopic extensive lysis of adhesions and intraoperative esophagogastrojuojenoscopy. The patient had minimal blood loss intraoperatively. Postop, the patient had few episodes of emesis and the patient was being treated with a combination of Reglan and Zofran. Subsequently, the patient had 2 episodes of syncope during which the A team was called and the patient was evaluated and the patient was found to be hypotensive and the patient's systolic blood pressure was in the 70s. As such, the patient got transferred to the intensive care unit and the patient was given a total of 3 L of normal saline and currently normotensive running at the rate of 100 mL an hour. She did not require any pressors. This morning, heart rate is around 96 sinus, afebrile, BP is 175 with a pulse ox of 95-96% room air oxygen. Her lungs are clear. Abdomen is soft and there is no direct tenderness rebound tenderness or guarding at the surgical wound site is dry clean and intact. She is not known to have any form of cardiac disease. Lactic acid level is at 2.6. The white cell count is 12.7 with a hemoglobin of 8.2 and there has been drop in hemoglobin compared to 10.3 from yesterday. Note that the white cell count was also elevated yesterday at 20.7 and dropped down to 12.5. Lactic acid level is at 2.5. Resident try to normal. The renal function is also normal. The patient is currently nothing by mouth for now. Review of Systems Constitutional: Reports fatigue, Reports weakness, Reports weight loss Eyes: denies as per HPI, denies blurred vision, denies bulging eye, denies decreased vision, denies diplopia, denies discharge, denies dry eye, denies irr itation, denies itching, denies pain, denies photophobia, denies loss of peripheral vision, denies loss of vision, denies tunnel vision/blind spots Ears: deny: decreased hearing, ear discharge, earache, tinnitus Ears, nose, mouth and throat: Reports as per HPI Breasts: absent: as per HPI, change in shape, gynecomastia, masses, nipple discharge, pain, skin changes, swelling Cardiovascular: Reports as per HPI Respiratory: Reports as per HPI Gastrointestinal: Reports abdominal pain, Reports nausea, Reports vomiting Genitourinary: Reports as per HPI Menstruation: Reports as per HPI Musculoskeletal: Reports as per HPI Musculoskeletal: absent: ankle pain, ankle stiffness, ankle swelling Integumentary: Reports as per HPI Neurological: Reports as per HPI Psychiatric: Reports as per HPI Endocrine: Reports as per HPI Hematologic/Lymphatic: Reports as per HPI Allergic/Immunologic: Reports as per HPI Past Medical History Past Medical History: Cancer, Hypertension Additional Past Medical History / Comment(s): hx sleeve gastrectomy (04/2021) and c/o nausea & vomiting., hx migraines.,spina bifida., cervical cancer cancer, heart palpitations with extra beats had an event monitor on until the evening of 12/13/21, jaw easily dislocated, History of Any Multi-Drug Resistant Organisms: None Reported Past Surgical History: Adenoidectomy, Appendectomy, Bariatric Surgery, Section, Cholecystectomy, Tonsillectomy, Tubal Ligation Additional Past Surgical History / Comment(s): C-S X 4; mass on ovary removed; extra tongue was removed at age 7; dislocated jaw x2. EGD. Sleeve Gastrectomy 05-04-21 Past Anesthesia/Blood Transfusion Reactions: No Reported Reaction Additional Past Anesthesia/Blood Transfusion Reaction / Comment(s): . Past Psychological History: No Psychological Hx Reported Smoking Status: Never smoker Past Alcohol Use History: None Reported Past Drug Use History: None Reported Additional Drug Use History / Comment(s): . - Past Family History Sister(s) Family Medical History: Cancer, Deep Vein Thrombosis (DVT), Pulmonary Embolus Additional Family Medical History / Comment(s): thyroid cancer Medications and Allergies Home Medications Medication Instructions Recorded Confirmed Type EPINEPHrine (Auto Inject) [Epipen] 0.3 mg IM ONCE PRN 04/28/20 12/14/21 History Erenumab-Aooe [Aimovig 70 mg SQ QMONTHLY 12/10/20 12/14/21 History Autoinjector] Ergocalciferol [Vitamin D2 (1250 50,000 unit PO WEEKLY 06/09/21 12/14/21 History Mcg = [id number] Iu)] Multivitamins, Thera [Multivitamin 1 tab PO DAILY 11/25/21 12/14/21 History (formulary)] Calcium Carbonate/Vitamin D3 1 tab PO DAILY 12/08/21 12/14/21 History [Calcium 500 mg Chewable Tablet] Metoprolol Succinate (ER) [Toprol 25 mg PO DAILY 12/08/21 12/14/21 History Xl] Vitamin C -Unknown Dose 1 tab PO DAILY 12/08/21 12/14/21 History Allergies Allergy/AdvReac Type Severity Reaction Status Date / Time pineapple Allergy Swelling Verified 12/14/21 10:56 Physical Exam Vitals: Vital Signs Temp Pulse Pulse Pulse Pulse Resp BP 12/15/21 08:00 98.2 F 108 H 20 119/72 12/15/21 07:05 110 H 12/15/21 07:00 107 H 21 107/63 12/15/21 06:50 102 H 20 94/59 12/15/21 06:40 110 H 22 110/66 12/15/21 06:30 112 H 22 12/15/21 06:20 97.9 F 105 H 24 118/70 12/15/21 06:14 96 22 12/15/21 06:00 124 H 12/15/21 04:56 112 H 12/15/21 04:22 108 H 12/15/21 03:29 103 H 12/15/21 03:12 97 12/15/21 03:10 89 12/15/21 02:54 96 12/15/21 00:53 97.6 F 108 H 15 12/14/21 23:39 98.1 F 99 16 12/14/21 22:45 101 H 12/14/21 21:20 95 15 12/14/21 21:19 98.5 F 99 14 12/14/21 21:01 84 12/14/21 20:44 76 12/14/21 20:30 16 12/14/21 20:12 73 12/14/21 19:57 79 12/14/21 19:42 85 12/14/21 19:27 86 12/14/21 19:12 86 12/14/21 18:57 80 12/14/21 18:42 86 12/14/21 18:27 78 12/14/21 18:12 79 12/14/21 17:57 74 12/14/21 17:42 72 12/14/21 17:27 98.4 F 74 16 12/14/21 17:06 89 16 12/14/21 16:51 78 14 12/14/21 16:36 74 16 12/14/21 16:21 95 18 12/14/21 16:06 96.9 F L 93 16 12/14/21 11:38 98.5 F 85 16 BP BP BP Pulse Ox 12/15/21 08:00 96 12/15/21 07:05 12/15/21 07:00 94 L 12/15/21 06:50 97 12/15/21 06:40 95 12/15/21 06:30 95 12/15/21 06:20 97 12/15/21 06:14 12/15/21 06:00 101/72 12/15/21 04:56 94/68 12/15/21 04:22 94/69 12/15/21 03:29 78/45 12/15/21 03:12 109/72 12/15/21 03:10 106/68 12/15/21 02:54 70/53 12/15/21 00:53 105/73 100 12/14/21 23:39 101/71 100 12/14/21 22:45 101/69 12/14/21 21:20 103/71 99 12/14/21 21:19 107/74 93 L 12/14/21 21:01 12/14/21 20:44 12/14/21 20:30 12/14/21 20:12 119/81 100 12/14/21 19:57 122/83 99 12/14/21 19:42 118/83 100 12/14/21 19:27 134/87 98 12/14/21 19:12 132/87 99 12/14/21 18:57 134/84 99 12/14/21 18:42 134/84 98 12/14/21 18:27 133/88 12/14/21 18:12 128/83 12/14/21 17:57 130/85 12/14/21 17:42 140/86 12/14/21 17:27 137/91 99 12/14/21 17:06 146/90 99 12/14/21 16:51 151/92 99 12/14/21 16:36 152/90 100 12/14/21 16:21 150/89 100 12/14/21 16:06 152/79 100 12/14/21 11:38 151/78 99 Intake and Output 12/14/21 12/15/21 12/15/21 22:59 06:59 14:59 Intake Total 300 4600 500 Output Total 210 650 Balance 90 4600 -150 Intake: IV 300 150 0.9% NaCl with KCl 20 Meq 150 /l 1,000 ml @ 150 mls/hr IV .Q6H40M [facility] Rx#: [id number] Intake, IV Titration 4600 200 Amount 0.9% NaCl with KCl 20 Meq 1350 /l 1,000 ml @ 150 mls/hr IV .Q6H40M [facility] Rx#: [id number] ACETAMINOPHEN IV (For NPO 200 ) 1,000 mg In Empty Bag 1 bag @ 400 mls/hr IVPB Q6HR [facility] Rx#:[id number] Magnesium Sulfate-D5w Pmx 200 1 gm In Dextrose/Water 1 100ml.bag @ 100 mls/hr IVPB Q1H [facility] Rx#: [id number] Sodium Chloride 0.9% 1, 1000 000 ml @ 999 mls/hr IV . Q1H1M [facility] Rx#:[id number] Sodium Chloride 0.9% 2, 2000 000 ml @ 999 mls/hr IV . Q2H1M [facility] Rx#:[id number] ceFAZolin 2 gm In Sodium 50 Chloride 0.9% 50 ml @ 100 mls/hr IVPB Q8H [facility] Rx#: [id number] Oral 0 TPN/PPN 150 0.9% NaCl with KCl 20 Meq 150 /l 1,000 ml @ 150 mls/hr IV .Q6H40M [facility] Rx#: [id number] Output: Urine 200 550 Emesis 100 Estimated Blood Loss 10 Other: # Voids 1 1 # Bowel Movements 0 0 Weight 106.6 kg GENERAL: Well-developed in no acute distress. The patient is currently on room air oxygen and the breathing is nonlabored Head exam was generally normal. There was no scleral icterus or corneal arcus. Mucous membranes were moist. HEENT: No scleral icterus. Extraocular movements grossly intact. Hears conversational speech. No nasal drainage. NECK: Supple without lymphadenopathy. Lungs were clear to auscultation and percussion, and with normal diaphragmatic excursion. No wheezes or rales were noted. Cardiac exam revealed the PMI to be normally situated and sized. The rhythm was regular and no extrasystoles were noted during several minutes of auscultation. The first and second heart sounds were normal and physiologic splitting of the second heart sound was noted. There were no murmurs, rubs, clicks, or gallops. ABDOMEN: Dressing intact. No peritonitis. Appropriate left upper quadrant incisional pain. MUSCULOSKELETAL: No clubbing, cyanosis. NEURO: No focal or lateralizing signs. Cranial nerves 2 through 12 grossly within normal limits. PSYCH: Appropriate affect. Alert and oriented to person, place and time. Examination of the skin revealed no evidence of significant rashes, suspicious appearing nevi or other concerning lesions. Results - Laboratory Findings CBC and BMP: 12/15/21 06:36 12/15/21 06:03 Abnormal lab findings: Abnormal Labs 12/14/21 12/14/21 12/15/21 21:12 21:14 05:44 WBC 20.7 H RBC Hgb 10.3 L Hct 32.0 L Neutrophils # 18.7 H Lymphocytes # 0.9 L Sodium Chloride POC Glucose (mg/dL) 235 H 223 H Plasma Lactic Acid Giovanni Calcium Magnesium 12/15/21 12/15/21 12/15/21 06:03 06:20 06:36 WBC 12.5 H RBC 3.00 L Hgb 8.2 L D Hct 25.6 L Neutrophils # 10.8 H Lymphocytes # Sodium 136 L Chloride 110 H POC Glucose (mg/dL) 217 H Plasma Lactic Acid Giovanni Calcium 7.3 L Magnesium 1.5 L 12/15/21 07:30 WBC RBC Hgb Hct Neutrophils # Lymphocytes # Sodium Chloride POC Glucose (mg/dL) Plasma Lactic Acid Giovanni 2.6 H* Calcium Magnesium - Diagnostic Findings Chest x-ray: image reviewed Assessment and Plan Plan: Ongoing gastric bypass surgery and the patient is postop day #1. The patient underwent a robotic-assisted Marco-en-Y gastric bypass surgery in addition to laparoscopic lysis of adhesions and intraoperative esophagogastroduodenoscopy Syncope secondary to hypotension, likely secondary to intravascular volume depletion. No evidence of any complications related to surgery. Abdomen is soft. No significant lactic acidosis. Acute leukocytosis and her white cell count is down to 12.5 from a baseline of 20.7 Acute drop in hemoglobin, could be related to intraoperative blood loss, expected outcome of surgery in hemoglobin is at 8.2 Mild lactic acidosis 2.6 Morbid obesity due to excess calories Body mass index of 47.1, initial Hypertensive heart disease. Migraines Spina Bifida Osteoarthritis of the hips Osteoarthritis of the knees. Vitamin D deficiency Status post sleeve gastrectomy Vitamin A deficiency Complications of sleeve gastrectomy Intractable nausea vomiting Intra-abdominal adhesions from greater omentum to anterior abdominal wall, lower abdomen Perigastric adhesions Splenomegaly Plan Patient has been adequately resuscitated IV fluids Continue normal saline with potassium supplements at the rate of 100 mL an hour Continue Dilaudid for pain control as needed Monitor urine output Monitor blood pressure Upper GI series to follow to evaluate surgical anastomosis We'll continue to follow. The patient is currently on room air oxygen. He is using incentive spirometer.
[2021-12-15 12:44] LABS: HCT 25.1 % (34.0-46.0); Hypochromasia Slight; MCH 26.8 pg (25.0-35.0); MCHC 31.7 g/dL (31.0-37.0); MCV 84.4 fL (80.0-100.0); Mean Platelet Volume 8.5; Platelet Count 344 k/uL (150-450); RBC 2.97 m/uL (3.80-5.40); RDW 15.1 % (11.5-15.5); WBC 13.1 k/uL (3.8-10.6)
[2021-12-15] MEDS: TRIMETHOBENZAMIDE 100 MG/ML 2 ML VIAL IM PRN ×2 (13:47→21:03)
--- NOTE | 2021-12-15 15:00 | CT ---
EXAMINATION TYPE: CT chest angio for PE CT DLP: 523.9 mGycm, Automated exposure control for dose reduction was used. DATE OF EXAM: 12/15/2021 2:21 PM COMPARISON: CT abdomen pelvis 08/05/2021, chest radiograph 03/31/2021. CLINICAL INDICATION:Female, 31 years old with history of chest pain, tachycardia; Chest pain, Tachyca rdia TECHNIQUE/CONTRAST: CTA scan of the thorax is performed with IV Contrast, patient injected with 100 mL of Isovue 370, pul monary embolism protocol. MIP images are created and reviewed. FINDINGS: Pulmonary Artery: There are peripheral nonocclusive pulmonary emboli demonstrated within the left upp er lobe segmental branch (series 401, image 40 and questionable in the right lower lobe subsegmental branch (series 401, image 54). No evidence for right heart strain. Lungs/Pleura: No pneumothorax or pleural effusion. Bilateral lower lobe linear atelectasis. No suspic ious pulmonary nodules. Airway: Large airways are patent. Heart: Heart is within normal limits for size.. Vasculature: No evidence of aortic aneurysm. Mediastinum: No gross evidence of adenopathy. Musculoskeletal: No acute osseous abnormalities Soft Tissues: Unremarkable. Lower neck: No significant findings. Upper Abdomen: Postsurgical changes from Marco-en-Y gastric bypass. Visualized liver is diffusely hypo attenuating.. IMPRESSION: 1. Pulmonary was a within the left upper lobe segmental branch and a questionable one in the right lo wer lobe subsegmental branch. No evidence for right heart strain. 2. Hepatic steatosis. Findings communicated to Dr. Tahir Levin at 2:51 PM via [place].
[2021-12-15] MEDS ORDERED: HEPARIN SODIUM 1,000 UN/ML (10ML VL) IV PRN (15:02)
[2021-12-15] MEDS ORDERED: HEPARIN SODIUM 1,000 UN/ML (10ML VL) IV ONE (15:02)
[2021-12-15] MEDS: HEPARIN SOD,PORK IN 0.45% NACL 25,000 UNIT in 0.45% NACL 1 250ML.BAG IV SCH (15:19)
--- NOTE | 2021-12-15 16:49 | US ---
EXAMINATION TYPE: US venous doppler duplex LE BI DATE OF EXAM: 12/15/2021 3:59 PM COMPARISON: CT dated 12/15/2021 CLINICAL HISTORY: possible PEs on CT scan. new PE's SIDE PERFORMED: Bilateral TECHNIQUE: The lower extremity deep venous system is examined utilizing real time linear array sonog farhad with graded compression, doppler sonography and color-flow sonography. VESSELS IMAGED: Common Femoral Vein Deep Femoral Vein Greater Saphenous Vein * Femoral Vein Popliteal Vein Small Saphenous Vein * Proximal Calf Veins (* superficial vessels) There is normal flow, compressibility, vascular waveforms. Right Leg: Negative for DVT Left Leg: Negative for DVT IMPRESSION: No evident deep venous thrombosis within the lower extremities from the level of the knee centrally. Review of patient's CT is also performed, findings described as possible pulmonary emboli may actually represent pulmonary vein on the left, there is beam hardening artifact on the exam
[2021-12-15 17:12] LABS: Glucose,Whole Blood 149 mg/dL (70-110)
[2021-12-15 20:58] LABS: Glucose,Whole Blood 147 mg/dL (70-110)
[2021-12-15 21:45] LABS: Prothrombin Time 11.3 sec (9.0-12.0)
[2021-12-15 21:48] LABS: Partial Thromboplastin Time >200.0 sec (22.0-30.0)
[2021-12-16] MEDS: HYDROmorphone 1 MG/ML 1 ML SYRINGE IVP PRN ×6 (00:05→23:40)
[2021-12-16] MEDS: ONDANSETRON 4 MG/2 ML VIAL IVP SCH ×5 (00:05→23:38)
[2021-12-16] MEDS ORDERED: IOPAMIDOL CONTRAST (ORAL USE) VIAL PO PRN (01:40)
[2021-12-16] MEDS: 0.9% NACL WITH KCL 20 MEQ/L 1,000 ML IV SCH ×3 (02:38→23:44)
[2021-12-16 03:00] LABS: Basophils % (A) 0 %; Eosinophils % (A) 0 %; Hypochromasia Slight; Lymphocytes # (A) 1.8 k/uL (1.0-4.8); Lymphocytes % (A) 14 %; MCH 28.5 pg (25.0-35.0); MCHC 33.5 g/dL (31.0-37.0); Mean Platelet Volume 8.4; Monocytes # (A) 0.4 k/uL (0-1.0); Monocytes % (A) 3 %; Neutrophils # (A) 10.7 k/uL (1.3-7.7); Neutrophils % (A) 82 %; Platelet Count 305 k/uL (150-450); RBC 2.31 m/uL (3.80-5.40); RDW 15.9 % (11.5-15.5)
[2021-12-16 03:13] LABS: ALT 9 U/L (4-34); AST 15 U/L (14-36); African American GFR (CKD) >90 (>60 ml/min/1.73 sqM); Albumin 2.9 g/dL (3.5-5.0); Alkaline Phosphatase 41 U/L (38-126); Anion Gap 3 mmol/L; Blood Urea Nitrogen 13 mg/dL (7-17); Calcium 7.9 mg/dL (8.4-10.2); Carbon Dioxide 24 mmol/L (22-30); Chloride 109 mmol/L (98-107); Glucose 133 mg/dL (74-99); Non-African American GFR(CKD) >90 (>60 ml/min/1.73 sqM); Potassium 4.2 mmol/L (3.5-5.1); Sodium 136 mmol/L (137-145); Total Bilirubin 0.2 mg/dL (0.2-1.3); Total Protein 5.2 g/dL (6.3-8.2)
[2021-12-16 03:34] LABS: HGB 6.6 gm/dL (11.4-16.0)
[2021-12-16 03:35] LABS: HCT 19.7 % (34.0-46.0)
[2021-12-16] MEDS: METOCLOPRAMIDE 5 MG/ML 2 ML VIAL IVP PRN (04:02)
[2021-12-16] MEDS: HEPARIN SOD,PORK IN 0.45% NACL 25,000 UNIT in 0.45% NACL 1 250ML.BAG IV SCH (04:26)
--- NOTE | 2021-12-16 05:44 | CT ---
EXAMINATION TYPE: CT abdomen pelvis w con DATE OF EXAM: 12/16/2021 COMPARISON: 08/05/2021 HISTORY: PAIN CT DLP: 2429.4 mGycm Automated exposure control for dose reduction was used. CONTRAST: Performed with IV Contrast, patient injected with 100 mL of Isovue 300. There is some infiltrate and atelectasis at the posterior lung bases. Heart size is normal. No perica rdial effusion. Small left pleural effusion is present. Liver spleen appear intact. There are surgical changes consistent with bariatric surgery. No pancreat ic mass. Gallbladder appears absent. The bile ducts are not dilated. There is no adrenal mass. Kidneys show normal size and contour. No hydronephrosis. Ureters are not di lated. Delayed images show normal renal excretion. There is no retroperitoneal adenopathy. Bladder di stends smoothly. No inguinal hernia. Uterus is anteverted. There is small amount of low-density fluid in the pelvis. There are clips from appendectomy. There is L5 spondylolysis with a first-degree L5-S1 spondylolisthesis. No compression fracture. Bony pelvis is intact. The hip joints are intact. There are some dilated fluid-filled small bowel loops in the mid abdomen. Distal small bowel is not d ilated. Transition point not seen. Small bowel dilated up to 4 cm. There is no free air. No ascites. IMPRESSION: There are some dilated small bowel loops in the mid abdomen suggestive of a mid mechanical small kun l obstruction and appears new compared to the old exam. Transition point not seen. Previous surgery. Tiny amount of free fluid in the pelvis with low attenuation. No free air. Bilateral lower lobe patchy atelectasis and infiltrate which is new compared to old exam. There is so me sigmoid diverticulosis without diverticulitis.
[2021-12-16] MEDS: INSULIN ASPART (NovoLOG) 100 UNIT/ML VIAL SQ SCH ×4 (06:46→21:28)
[2021-12-16 06:47] LABS: Glucose,Whole Blood 121 mg/dL (70-110)
[2021-12-16] MEDS: LACTATED RINGERS 1,000 ML IV SCH (06:59)
--- NOTE | 2021-12-16 07:45 | CA ---
Transthoracic Echo Report Name: Razia Lilly Age: 31 Gender: F : 1990 Exam Date: 12/15/2021 13:17 Exam Location: [facility] Ht (in): 66 Wt (lb): 235 Ordering Physician: Tahir Levin MD Attending/Referring Phys: Formulation Scientist Deja Madrid RDCS Procedure CPT: Indications: chest pain and tachycardia with exertion Cardiac Hx: Gastric bypass Technical Quality: Fair Contrast 1: Total Dose (mL): Contrast 2: Total Dose (mL): MEASUREMENTS (Male / Female) Normal Values 2D ECHO LV Diastolic Diameter PLAX 4.0 cm 4.2 - 5.9 / 3.9 - 5.3 cm LV Systolic Diameter PLAX 1.6 cm IVS Diastolic Thickness 1.3 cm 0.6 - 1.0 / 0.6 - 0.9 cm LVPW Diastolic Thickness 1.5 cm 0.6 - 1.0 / 0.6 - 0.9 cm LV Relative Wall Thickness 0.7 RV Internal Dim ED PLAX 2.8 cm M-MODE Aortic Root Diameter MM 2.9 cm LA Systolic Diameter MM 2.9 cm LA Ao Ratio MM 1.0 MV E Point Septal Separation 1.1 cm AV Cusp Separation MM 1.9 cm DOPPLER AV Peak Velocity 115.4 cm/s AV Peak Gradient 5.3 mmHg MV Area PHT 3.1 cm??? MR Peak Velocity 126.7 cm/s MR Peak Gradient 6.4 mmHg Mitral E Point Velocity 85.4 cm/s Mitral A Point Velocity 65.5 cm/s Mitral E to A Ratio 1.3 MV Deceleration Time 247.0 ms TR Peak Velocity 112.0 cm/s TR Peak Gradient 5.0 mmHg Right Ventricular Systolic Press 10.0 mmHg FINDINGS Left Ventricle Mildly increased left ventricular wall thickness. Left ventricular cavity size normal. Left ventricular ejection fraction is estimated at 55-60 %. Tachycardic Right Ventricle The right ventricle is normal in size and function. Right Atrium The right atrium is normal in size. Left Atrium The left atrium is normal in size. Mitral Valve Structurally normal mitral valve without significant stenosis or prolapse. There is mild mitral regurgitation. Aortic Valve Structurally normal aortic valve without significant sclerosis or stenosis. There is no aortic regurgitation. Tricuspid Valve Structurally normal tricuspid valve without significant stenosis. Pulmonary artery systolic pressure is normal. Trace tricuspid regurgitation. Pulmonic Valve Structurally normal pulmonic valve without significant stenosis. There is no pulmonic regurgitation. Pericardium Trace pericardial effusion. Aorta Normal aortic root dimension. CONCLUSIONS Resting tachycardia noted Left ventricular EF 55-60% Mild mitral regurgitation Trace tricuspid regurgitation Trace pericardial effusion Previewed by: Dr. Rudy Roblero DO (Electronically Signed) Final Date: 16 December 2021 07:44
[2021-12-16] MEDS: ALBUTEROL NEBULIZED 2.5 MG/3 ML INHALATION SCH ×4 (08:51→19:18)
--- NOTE | 2021-12-16 09:05 | P.CRDCN ---
History of Present Illness Consult date: 12/16/21 Consult reason: chest pain History of present illness: The patient is a 31-year-old female who is currently admitted to the hospital under Dr. Park after undergoing revision of previous gastric sleeve surgery. Postoperatively she developed sinus tachycardia chest discomfort, therefore cardiology was consulted. Postoperative complications include acute anemia with hemoglobin at 6.6 and hypotension. CTA of the chest also shows possible right upper lobe pulmonary embolism. DIAGNOSTICS: Telemetry strip shows sinus tachycardia with a heart rate in the 130s Lab data: WBC 13.0, hemoglobin 6.6, hematocrit 19.7, platelet 305, sodium 136, potassium 4.2, BUN 13, creatinine 0.54, magnesium 2.1, AST 15, ALT 9 Vital signs: Blood pressure 108/66, heart rate 133, respiratory rate 21, SpO2 92% on room air, temp 98.9F Echocardiogram reveals normal LV function and without valvular abnormalities CT of the chest shows possible right upper lobe pulmonary embolism Venous Doppler negative for DVT PAST MEDICAL HISTORY: Morbid obesity, intractable nausea, palpitations REVIEW OF SYSTEMS: No fever or chills. No cough or expectoration. No suresh phoresis. Patient denies headache, dizziness, blurred vision, double vision. Positive for stomach discomfort. Positive for nausea, vomiting. No hematochezia. No hematemesis. Denies any black stools or blood in his stools. Denies dysuria or hematuria. No muscle weakness or numbness. PHYSICAL EXAMINATION: This is a 31-year-old female in no apparent distress at the time of my examination. HEENT: Head is atraumatic, normocephalic. Pupils are equal, round. Sclerae anicteric. Conjunctivae are clear. Mucous membranes of the mouth are moist. Neck is supple. There is no jugular venous distention. No carotid bruit is heard. CHEST EXAMINATION: Lungs are clear to auscultation. No chest wall tenderness is noted on palpation or with deep breathing. HEART EXAMINATION: Heart regular rate and rhythm. S1, S2 heard. Notably tachycardic. No murmurs, gallops or rub. ABDOMEN: Soft, tender. Recent gastric surgery. EXTREMITIES: 2+ peripheral pulses with no evidence of peripheral edema and no calf tenderness noted. NEUROLOGIC EXAMINATION: Patient is awake, alert and oriented x3. FINAL ASSESSMENT AND PLAN: Sinus tachycardia, anemia versus vagal injury Postoperative anemia, hemoglobin 6.6 Status post Marco-en-Y with lysis of adhesions and intraoperative esophagogastrojejunoscopy History of palpitations, on beta liam, TSH 1.02 in September 2021 PLAN: Permissible sinus tachycardia in the 130s as long as she is hemodynamically stable Consider resuming home Toprol XL when able to tolerate oral medications Further recommendations to be based on clinical course I am dictating on behalf of Dr Sam Nuno's history/physical and assessment/plan. 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 EGD. Sleeve Gastrectomy 05-04-21 Past Anesthesia/Blood Transfusion Reactions: No Reported Reaction Additional Past Anesthesia/Blood Transfusion Reaction / Comment(s): . Past Psychological History: No Psychological Hx Reported Smoking Status: Never smoker Past Alcohol Use History: None Reported Past Drug Use History: None Reported Additional Drug Use History / Comment(s): . - Past Family History Sister(s) Family Medical History: Cancer, Deep Vein Thrombosis (DVT), Pulmonary Embolus Additional Family Medical History / Comment(s): thyroid cancer Medications and Allergies Home Medications Medication Instructions Recorded Confirmed Type EPINEPHrine (Auto Inject) [Epipen] 0.3 mg IM ONCE PRN 04/28/20 12/14/21 History Erenumab-Aooe [Aimovig 70 mg SQ QMONTHLY 12/10/20 12/14/21 History Autoinjector] Ergocalciferol [Vitamin D2 (1250 50,000 unit PO WEEKLY 06/09/21 12/14/21 History Mcg = 77624 Iu)] Multivitamins, Thera [Multivitamin 1 tab PO DAILY 11/25/21 12/14/21 History (formulary)] Calcium Carbonate/Vitamin D3 1 tab PO DAILY 12/08/21 12/14/21 History [Calcium 500 mg Chewable Tablet] Metoprolol Succinate (ER) [Toprol 25 mg PO DAILY 12/08/21 12/14/21 History Xl] Vitamin C -Unknown Dose 1 tab PO DAILY 12/08/21 12/14/21 History Allergies Allergy/AdvReac Type Severity Reaction Status Date / Time pineapple Allergy Swelling Verified 12/14/21 10:56 Physical Exam Vitals: Vital Signs Temp Pulse Pulse Resp BP Pulse Ox 12/16/21 08:45 98.9 F 133 H 21 108/66 92 L 12/16/21 08:38 98.9 F 133 H 21 108/66 92 L 12/16/21 07:00 133 H 18 119/68 94 L 12/16/21 06:39 98.9 F 135 H 12 119/68 92 L 12/16/21 06:22 98.8 F 131 H 12 112/66 93 L 12/16/21 06:12 100.2 F H 133 H 13 113/66 93 L 12/16/21 06:00 138 H 16 138/80 92 L 12/16/21 05:19 142 H 22 121/81 90 L 12/16/21 04:00 99.4 F 124 H 129 H 17 128/86 95 12/16/21 03:00 146 H 13 121/81 96 12/16/21 02:00 131 H 21 138/86 92 L 12/16/21 01:00 137 H 17 117/68 93 L 12/16/21 00:00 98.8 F 130 H 134 H 16 156/92 95 12/15/21 23:00 131 H 21 153/79 95 12/15/21 22:00 130 H 19 113/67 93 L 12/15/21 21:22 95 12/15/21 21:00 123 H 19 109/48 95 12/15/21 20:00 98.6 F 121 H 19 132/86 94 L 12/15/21 19:46 130 H 12/15/21 19:00 121 H 17 126/79 95 12/15/21 18:00 122 H 17 108/64 92 L 12/15/21 17:00 120 H 11 L 104/64 93 L 12/15/21 16:05 92 L 12/15/21 16:00 98.2 F 109 H 18 135/87 96 12/15/21 15:00 125 H 27 H 119/68 96 12/15/21 14:00 137/86 12/15/21 13:00 112 H 22 138/82 96 12/15/21 12:00 98.5 F 105 H 21 126/87 97 12/15/21 11:03 102 H 18 113/72 98 12/15/21 10:00 129 H 33 H 132/76 97 12/15/21 09:00 96 0 L 118/75 95 Intake and Output 12/15/21 12/16/21 12/16/21 22:59 06:59 14:59 Intake Total 1127.28 833.575 410 Output Total 1000 750 Balance 127.28 83.575 410 Intake: IV 800 700 100 0.9% NaCl with KCl 20 Meq 800 700 100 /l 1,000 ml @ 150 mls/hr IV .Q6H40M [facility] Rx#: [id number] Intake, IV Titration 127.28 133.575 Amount Heparin Sod,Pork in 0.45% 127.28 83.575 NaCl 25,000 unit In 0.45 % NaCl 1 250ml.bag @ 18 UNITS/KG/HR 19.188 mls/hr IV .Q13H2M [facility] Rx#: [id number] ceFAZolin 2 gm In Sodium 50 Chloride 0.9% 50 ml @ 100 mls/hr IVPB Q8HR [facility] Rx# :[id number] Oral 200 Blood Product 0 310 Rc As-1 Unit 0 [id number] Rc As-1 Unit 0 310 [id number] Output: Urine 1000 750 Other: Voiding Method Toilet Toilet # Voids 0 0 0 # Bowel Movements 0 Weight 106.6 kg Results 12/16/21 02:15 12/16/21 02:15 Cardiac Enzymes 12/15/21 12/16/21 Range/Units 11:34 02:15 AST 15 (14-36) U/L Troponin I <0.012 (0.000-0.034) ng/mL Coagulation 12/15/21 12/16/21 Range/Units 21:07 04:50 PT 11.3 (9.0-12.0) sec APTT >200.0 H* 61.0 H (22.0-30.0) sec CBC 12/15/21 12/16/21 Range/Units 12:35 02:15 WBC 13.1 H 13.0 H (3.8-10.6) k/uL RBC 2.97 L 2.31 L (3.80-5.40) m/uL Hgb 8.0 L 6.6 L* (11.4-16.0) gm/dL Hct 25.1 L 19.7 L* (34.0-46.0) % Plt Count 344 305 (150-450) k/uL Comprehensive Metabolic Panel 12/16/21 Range/Units 02:15 Sodium 136 L (137-145) mmol/L Potassium 4.2 (3.5-5.1) mmol/L Chloride 109 H (98-107) mmol/L Carbon Dioxide 24 (22-30) mmol/L BUN 13 (7-17) mg/dL Creatinine 0.54 (0.52-1.04) mg/dL Glucose 133 H (74-99) mg/dL Calcium 7.9 L (8.4-10.2) mg/dL AST 15 (14-36) U/L ALT 9 (4-34) U/L Alkaline Phosphatase 41 (38-126) U/L Total Protein 5.2 L (6.3-8.2) g/dL Albumin 2.9 L (3.5-5.0) g/dL Current Medications Generic Name Dose Route Start Last Admin Trade Name Freq PRN Reason Stop Dose Admin Acetaminophen 1,000 mg 12/14/21 09:25 12/14/21 11:37 Acetaminophen Tab 500 Mg Tab PO 1,000 mg ONCE PRN Administration preop Albuterol Sulfate 2.5 mg 12/14/21 20:00 12/15/21 19:27 Albuterol Nebulized 2.5 Mg/3 Ml INHALATION Not Given RT-QID [facility] Diphenhydramine HCl 25 mg 12/14/21 16:05 Diphenhydramine 50 Mg/Ml 1 Ml Vial IVP Q6HR PRN Itching Gabapentin 300 mg 12/14/21 09:25 12/14/21 11:37 Gabapentin 300 Mg Cap PO 300 mg ONCE PRN Administration Pre-Op Heparin Sodium (Porcine) 0 unit 12/15/21 15:02 Heparin Sodium 1,000 Un/Ml (10ml Vl) IV PER PROTOCOL PRN Low PTT Protocol Hydromorphone HCl 1 mg 12/14/21 19:33 12/16/21 04:02 Hydromorphone 1 Mg/Ml 1 Ml Syringe IVP 1 mg Q3HR PRN Administration Pain Lactated Ringer's 1,000 mls @ 20 mls/hr 12/14/21 06:39 12/16/21 06:59 Lactated Ringers IV Not Given .Q24H [facility] Potassium Chloride/Sodium Chloride 1,000 mls @ 100 mls/hr 12/15/21 08:00 12/16/21 02:38 Ns-Kcl 20 Meq/L Iv Solution IV 100 mls/hr .Q10H [facility] Administration Ferric Sodium Gluconate 125 mg 110 mls @ 100 mls/hr 12/15/21 09:45 12/15/21 11:22 / Sodium Chloride IVPB 100 mls/hr DAILY [facility] Administration Heparin Sodium/Sodium Chloride 250 mls @ 19.188 mls/hr 12/15/21 15:15 12/16/21 05:27 25,000 unit/ Sodium Chloride IV 14 units/kg/hr .Q13H2M [facility] 14.924 mls/hr Titration Protocol 18 UNITS/KG/HR Cefazolin Sodium 2 gm/ Sodium 50 mls @ 100 mls/hr 12/16/21 00:00 12/16/21 00:05 Chloride IVPB 100 mls/hr Q8HR [facility] Administration Protocol Insulin Aspart 0 unit 12/15/21 12:30 12/16/21 06:46 Insulin Aspart (Novolog) 100 Unit/Ml Vial SQ Not Given ACHS [facility] Protocol Lidocaine HCl 0.1 ml 12/14/21 06:39 Lidocaine 1% (10mg/Ml) For Iv Start INTRADERMA PER PROTOCOL PRN IV Start Metoclopramide HCl 10 mg 12/15/21 06:38 12/16/21 04:02 Metoclopramide 5 Mg/Ml 2 Ml Vial IVP 10 mg Q6HR PRN Administration Nausea And Vomiting Miscellaneous Information 1 each 12/15/21 07:13 Magnesium Replacement Protocol 1 Each Misc MISCELLANE DAILY PRN Per Protocol Protocol Naloxone HCl 0.2 mg 12/14/21 16:05 Naloxone 0.4 Mg/Ml 1 Ml Vial IV Q2M PRN Opioid Reversal Ondansetron HCl 4 mg 12/14/21 18:00 12/16/21 06:37 Ondansetron 4 Mg/2 Ml Vial IVP 4 mg Q6HR [facility] Administration Pantoprazole Sodium 40 mg 12/14/21 21:00 12/15/21 21:01 Pantoprazole 40 Mg/10 Ml Vial IV 40 mg BID [facility] Administration Scopolamine 1 patch 12/17/21 09:00 Scopolamine 1 Mg/72 Hr Patch TRANSDERM Q72H [facility] Simethicone 80 mg 12/14/21 16:05 Simethicone 40 Mg/0.6 Ml Drops 2,000 Mg/30 Ml Bottle PO Q6HR PRN Bloating Trimethobenzamide HCl 100 mg 12/15/21 09:41 12/15/21 21:03 Trimethobenzamide 100 Mg/Ml 2 Ml Vial IM 100 mg Q6HR PRN Administration Nausea Intake and Output 12/15/21 12/16/21 12/16/21 22:59 06:59 14:59 Intake Total 1127.28 833.575 410 Output Total 1000 750 Balance 127.28 83.575 410 Intake: IV 800 700 100 0.9% NaCl with KCl 20 Meq 800 700 100 /l 1,000 ml @ 150 mls/hr IV .Q6H40M [facility] Rx#: [id number] Intake, IV Titration 127.28 133.575 Amount Heparin Sod,Pork in 0.45% 127.28 83.575 NaCl 25,000 unit In 0.45 % NaCl 1 250ml.bag @ 18 UNITS/KG/HR 19.188 mls/hr IV .Q13H2M [facility] Rx#: [id number] ceFAZolin 2 gm In Sodium 50 Chloride 0.9% 50 ml @ 100 mls/hr IVPB Q8HR [facility] Rx# :[id number] Oral 200 Blood Product 0 310 Rc As-1 Unit 0 [id number] Rc As-1 Unit 0 310 [id number] Output: Urine 1000 750 Other: Voiding Method Toilet Toilet # Voids 0 0 0 # Bowel Movements 0 Weight 106.6 kg 12/16/21 02:15 12/16/21 02:15
[2021-12-16] MEDS: PANTOPRAZOLE 40 MG/10 ML VIAL IV SCH ×2 (09:07→21:38)
--- NOTE | 2021-12-16 09:15 | P.PN ---
Subjective Progress Note Date: 12/16/21 Principal diagnosis: Patient seen and evaluated. Computed tomography scan review of chest. Duplex ultrasound reviewed. Discussed with the sheltered workshop executive director regarding findings on antwan dies and clinical course. No evidence of PE. Patient was given heparin with decreased drop in blood from 8-6.6. She is currently receiving 1 unit of packed RBCs for hemoglobin 6.6. Patient seen by cardiology. Question will start Cardizem. Patient has been off her metoprolol XL for more than 24 hours. Blood pressure stable. We'll resume metoprolol. Start bariatric clears. Patient forewarned to expect dark bowel movements due to expected bleeding from anastomosis. We'll stop heparin. Conservative management. ICU care. Objective - Vital Signs Vital signs: Vital Signs Temp 98.8 F 12/16/21 08:55 Pulse 133 H 12/16/21 08:55 Resp 25 H 12/16/21 08:55 BP 108/66 12/16/21 08:55 Pulse Ox 94 L 12/16/21 08:55 FiO2 Intake & Output 12/15/21 12/16/21 12/16/21 18:59 06:59 18:59 Intake Total 1600 1460.855 410 Output Total 1650 1350 Balance -50 110.855 410 Weight 106.6 kg Intake: IV 1250 1000 100 0.9% NaCl with KCl 20 Meq 1250 1000 100 /l 1,000 ml @ 150 mls/hr IV .Q6H40M [facility] Rx#: [id number] Intake, IV Titration 200 260.855 Amount Heparin Sod,Pork in 0.45% 210.855 NaCl 25,000 unit In 0.45 % NaCl 1 250ml.bag @ 18 UNITS/KG/HR 19.188 mls/hr IV .Q13H2M [facility] Rx#: [id number] Magnesium Sulfate-D5w Pmx 200 1 gm In Dextrose/Water 1 100ml.bag @ 100 mls/hr IVPB Q1H [facility] Rx#: [id number] ceFAZolin 2 gm In Sodium 50 Chloride 0.9% 50 ml @ 100 mls/hr IVPB Q8HR [facility] Rx# :[id number] Oral 200 TPN/PPN 150 0.9% NaCl with KCl 20 Meq 150 /l 1,000 ml @ 150 mls/hr IV .Q6H40M [facility] Rx#: [id number] Blood Product 0 310 Rc As-1 Unit 0 [id number] Rc As-1 Unit 0 310 [id number] Output: Urine 1550 1350 Emesis 100 Other: Voiding Method Toilet # Voids 0 0 # Bowel Movements 0 0 - Labs CBC & Chem 7: 12/16/21 02:15 12/16/21 02:15 Labs: Abnormal Lab Results - Last 24 Hours (Table) 12/15/21 12/15/21 12/15/21 Range/Units 11:33 11:34 12:35 WBC 13.1 H (3.8-10.6) k/uL RBC 2.97 L (3.80-5.40) m/uL Hgb 8.0 L (11.4-16.0) gm/dL Hct 25.1 L (34.0-46.0) % RDW (11.5-15.5) % Neutrophils # (1.3-7.7) k/uL APTT (22.0-30.0) sec Sodium (137-145) mmol/L Chloride (98-107) mmol/L Glucose (74-99) mg/dL POC Glucose (mg/dL) 223 H (70-110) mg/dL Plasma Lactic Acid Giovanni 2.2 H* (0.7-2.0) mmol/L Calcium (8.4-10.2) mg/dL Total Protein (6.3-8.2) g/dL Albumin (3.5-5.0) g/dL Crossmatch 12/15/21 12/15/21 12/15/21 Range/Units 17:10 20:56 21:07 WBC (3.8-10.6) k/uL RBC (3.80-5.40) m/uL Hgb (11.4-16.0) gm/dL Hct (34.0-46.0) % RDW (11.5-15.5) % Neutrophils # (1.3-7.7) k/uL APTT >200.0 H* (22.0-30.0) sec Sodium (137-145) mmol/L Chloride (98-107) mmol/L Glucose (74-99) mg/dL POC Glucose (mg/dL) 149 H 147 H (70-110) mg/dL Plasma Lactic Acid Giovanni (0.7-2.0) mmol/L Calcium (8.4-10.2) mg/dL Total Protein (6.3-8.2) g/dL Albumin (3.5-5.0) g/dL Crossmatch 12/16/21 12/16/21 12/16/21 Range/Units 02:15 02:15 02:15 WBC 13.0 H (3.8-10.6) k/uL RBC 2.31 L (3.80-5.40) m/uL Hgb 6.6 L* (11.4-16.0) gm/dL Hct 19.7 L* (34.0-46.0) % RDW 15.9 H (11.5-15.5) % Neutrophils # 10.7 H (1.3-7.7) k/uL APTT (22.0-30.0) sec Sodium 136 L (137-145) mmol/L Chloride 109 H (98-107) mmol/L Glucose 133 H (74-99) mg/dL POC Glucose (mg/dL) (70-110) mg/dL Plasma Lactic Acid Giovanni 0.6 L (0.7-2.0) mmol/L Calcium 7.9 L (8.4-10.2) mg/dL Total Protein 5.2 L (6.3-8.2) g/dL Albumin 2.9 L (3.5-5.0) g/dL Crossmatch 12/16/21 12/16/21 12/16/21 Range/Units 04:50 04:50 06:45 WBC (3.8-10.6) k/uL RBC (3.80-5.40) m/uL Hgb (11.4-16.0) gm/dL Hct (34.0-46.0) % RDW (11.5-15.5) % Neutrophils # (1.3-7.7) k/uL APTT 61.0 H (22.0-30.0) sec Sodium (137-145) mmol/L Chloride (98-107) mmol/L Glucose (74-99) mg/dL POC Glucose (mg/dL) 121 H (70-110) mg/dL Plasma Lactic Acid Giovanni (0.7-2.0) mmol/L Calcium (8.4-10.2) mg/dL Total Protein (6.3-8.2) g/dL Albumin (3.5-5.0) g/dL Crossmatch See Detail
[2021-12-16] MEDS ORDERED: ALPRAZolam 0.25 MG TAB PO PRN (09:48)
--- NOTE | 2021-12-16 09:48 | P.PN ---
Subjective Progress Note Date: 12/16/21 This is a 31-year-old female patient with history of morbid obesity and the pat ient had an elective Marco-en-Y gastric bypass surgery for intractable nausea and emesis following a previous sleep gastrectomy. The patient has been having persistent problems since his sleep gastrectomy. As such, gastric bypass was offered. The patient underwent the surgery yesterday and this was a robotic- assisted Marco-en-Y gastric bypass surgery associated with laparoscopic extensive lysis of adhesions and intraoperative esophagogastrojuojenoscopy. The patient had minimal blood loss intraoperatively. Postop, the patient had few episodes of emesis and the patient was being treated with a combination of Reglan and Zofran. Subsequently, the patient had 2 episodes of syncope during which the A team was called and the patient was evaluated and the patient was found to be hypotensive and the patient's systolic blood pressure was in the 70s. As such, the patient got transferred to the intensive care unit and the patient was given a total of 3 L of normal saline and currently normotensive running at the rate of 100 mL an hour. She did not require any pressors. This morning, heart rate is around 96 sinus, afebrile, BP is 175 with a pulse ox of 95-96% room air oxygen. Her lungs are clear. Abdomen is soft and there is no direct tenderness rebound tenderness or guarding at the surgical wound site is dry clean and intact. She is not known to have any form of cardiac disease. Lactic acid level is at 2.6. The white cell count is 12.7 with a hemoglobin of 8.2 and there has been drop in hemoglobin compared to 10.3 from yesterday. Note that the white cell count was also elevated yesterday at 20.7 and dropped down to 12.5. Lactic acid level is at 2.5. Resident try to normal. The renal function is also normal. The patient is currently nothing by mouth for now. 12/16/2021, seeing the patient for a follow-up. Events from yesterday were noted. Note that the patient was having episodes of hypotension and chest pain. For that reason, a CT angiogram was done yesterday. At that point, I reviewed the images and I was not convinced that there was a clear-cut evidence of a pulmonary embolism. Nevertheless, the official report from radiology came back positive for pulmonary embolism and the patient was reported to have multiple subsegmental PE. At that point, the patient was placed on IV heparin and a Doppler of the lower extremity was ordered. By around evening, the patient started having abdominal pain. She was also becoming quite tachycardic and a heart rate was in the 130s. Blood work was done and the patient's hemoglobin dropped down to 6.6. IV heparin was stopped and the patient was given a total of 2 units of packed RBCs. At this point in time, a follow-up hemoglobin is still pending. Meanwhile, she is hemodynamically stable. No lower GI bleed. No ongoing hematemesis at this point in time. She is still complaining of abdominal pain. Overnight, she received several doses of Dilaudid without much help. Based on that, a CAT scan of the abdomen was also done yesterday and the CAT scan of the abdomen and pelvis showed dilated small bowel loops in the mid abdomen suggestive of a questionable mechanical small bowel obstruction and this wasn't new finding compared to the previous examination. Otherwise, no other acute abnormalities were noted. No evidence of any retroperitoneal bleed or lymphadenopathy. Hemodynamically, she is stable. She is still tachycardic. No pressors was utilized. IV fluids are running in the form of normal saline with potassium at the rate of 100 mL an hour. Doppler of the lower extremity ischemic also negative. Echo was done yesterday and it showed a preserved LV function with an ejection fraction of 55-60%. No other acute abnormalities have been noted. Objective - Vital Signs Vital signs: Vital Signs Temp 98.8 F 12/16/21 08:55 Pulse 133 H 12/16/21 08:55 Resp 25 H 12/16/21 08:55 BP 108/66 12/16/21 08:55 Pulse Ox 94 L 12/16/21 08:55 FiO2 Intake & Output 12/15/21 12/16/21 12/16/21 18:59 06:59 18:59 Intake Total 1600 1460.855 410 Output Total 1650 1350 Balance -50 110.855 410 Weight 106.6 kg Intake: IV 1250 1000 100 0.9% NaCl with KCl 20 Meq 1250 1000 100 /l 1,000 ml @ 150 mls/hr IV .Q6H40M [facility] Rx#: [id number] Intake, IV Titration 200 260.855 Amount Heparin Sod,Pork in 0.45% 210.855 NaCl 25,000 unit In 0.45 % NaCl 1 250ml.bag @ 18 UNITS/KG/HR 19.188 mls/hr IV .Q13H2M [facility] Rx#: [id number] Magnesium Sulfate-D5w Pmx 200 1 gm In Dextrose/Water 1 100ml.bag @ 100 mls/hr IVPB Q1H [facility] Rx#: [id number] ceFAZolin 2 gm In Sodium 50 Chloride 0.9% 50 ml @ 100 mls/hr IVPB Q8HR [facility] Rx# :[id number] Oral 200 TPN/PPN 150 0.9% NaCl with KCl 20 Meq 150 /l 1,000 ml @ 150 mls/hr IV .Q6H40M [facility] Rx#: [id number] Blood Product 0 310 Rc As-1 Unit 0 [id number] Rc As-1 Unit 0 310 [id number] Output: Urine 1550 1350 Emesis 100 Other: Voiding Method Toilet # Voids 0 0 # Bowel Movements 0 0 - Exam GENERAL: Well-developed in no acute distress. The patient is currently on room air oxygen and the breathing is nonlabored Head exam was generally normal. There was no scleral icterus or corneal arcus. Mucous membranes were moist. HEENT: No scleral icterus. Extraocular movements grossly intact. Hears conversational speech. No nasal drainage. NECK: Supple without lymphadenopathy. Lungs were clear to auscultation and percussion, and with normal diaphragmatic excursion. No wheezes or rales were noted. Cardiac exam revealed the PMI to be normally situated and sized. The rhythm was regular and no extrasystoles were noted during several minutes of auscultation. The first and second heart sounds were normal and physiologic splitting of the second heart sound was noted. There were no murmurs, rubs, clicks, or gallops. ABDOMEN: Dressing intact. No peritonitis. Appropriate left upper quadrant incisional pain. MUSCULOSKELETAL: No clubbing, cyanosis. NEURO: No focal or lateralizing signs. Cranial nerves 2 through 12 grossly within normal limits. PSYCH: Appropriate affect. Alert and oriented to person, place and time. Examination of the skin revealed no evidence of significant rashes, suspicious appearing nevi or other concerning lesions. - Labs CBC & Chem 7: 12/16/21 02:15 07/20/22 02:15 Labs: Abnormal Lab Results - Last 24 Hours (Table) 12/15/21 12/15/21 12/15/21 Range/Units 11:33 11:34 12:35 WBC 13.1 H (3.8-10.6) k/uL RBC 2.97 L (3.80-5.40) m/uL Hgb 8.0 L (11.4-16.0) gm/dL Hct 25.1 L (34.0-46.0) % RDW (11.5-15.5) % Neutrophils # (1.3-7.7) k/uL APTT (22.0-30.0) sec Sodium (137-145) mmol/L Chloride (98-107) mmol/L Glucose (74-99) mg/dL POC Glucose (mg/dL) 223 H (70-110) mg/dL Plasma Lactic Acid Giovanni 2.2 H* (0.7-2.0) mmol/L Calcium (8.4-10.2) mg/dL Total Protein (6.3-8.2) g/dL Albumin (3.5-5.0) g/dL Crossmatch 12/15/21 12/15/21 12/15/21 Range/Units 17:10 20:56 21:07 WBC (3.8-10.6) k/uL RBC (3.80-5.40) m/uL Hgb (11.4-16.0) gm/dL Hct (34.0-46.0) % RDW (11.5-15.5) % Neutrophils # (1.3-7.7) k/uL APTT >200.0 H* (22.0-30.0) sec Sodium (137-145) mmol/L Chloride (98-107) mmol/L Glucose (74-99) mg/dL POC Glucose (mg/dL) 149 H 147 H (70-110) mg/dL Plasma Lactic Acid Giovanni (0.7-2.0) mmol/L Calcium (8.4-10.2) mg/dL Total Protein (6.3-8.2) g/dL Albumin (3.5-5.0) g/dL Crossmatch 12/16/21 12/16/2122 Range/Units 02:15 02:15 02:15 WBC 13.0 H (3.8-10.6) k/uL RBC 2.31 L (3.80-5.40) m/uL Hgb 6.6 L* (11.4-16.0) gm/dL Hct 19.7 L* (34.0-46.0) % RDW 15.9 H (11.5-15.5) % Neutrophils # 10.7 H (1.3-7.7) k/uL APTT (22.0-30.0) sec Sodium 136 L (137-145) mmol/L Chloride 109 H (98-107) mmol/L Glucose 133 H (74-99) mg/dL POC Glucose (mg/dL) (70-110) mg/dL Plasma Lactic Acid Giovanni 0.6 L (0.7-2.0) mmol/L Calcium 7.9 L (8.4-10.2) mg/dL Total Protein 5.2 L (6.3-8.2) g/dL Albumin 2.9 L (3.5-5.0) g/dL Crossmatch 12/16/21 12/16/21 12/16/21 Range/Units 04:50 04:50 06:45 WBC (3.8-10.6) k/uL RBC (3.80-5.40) m/uL Hgb (11.4-16.0) gm/dL Hct (34.0-46.0) % RDW (11.5-15.5) % Neutrophils # (1.3-7.7) k/uL APTT 61.0 H (22.0-30.0) sec Sodium (137-145) mmol/L Chloride (98-107) mmol/L Glucose (74-99) mg/dL POC Glucose (mg/dL) 121 H (70-110) mg/dL Plasma Lactic Acid Giovanni (0.7-2.0) mmol/L Calcium (8.4-10.2) mg/dL Total Protein (6.3-8.2) g/dL Albumin (3.5-5.0) g/dL Crossmatch See Detail Assessment and Plan Plan: Ongoing gastric bypass surgery and the patient is postop day #2. The patient underwent a robotic-assisted Marco-en-Y gastric bypass surgery in addition to laparoscopic lysis of adhesions and intraoperative esophagogastroduodenoscopy. Suspected GI bleed as the patient was given IV heparin to be covered for an acute pulmonary embolism. The IV heparin has been discontinued for now and the patient had a CAT scan of the abdomen that showed no evidence of any intra- abdominal bleed. There is some dilation of the small bowel. General surgeries on the case at this point in time. She is not passing flatus yet. She is having some belching. She did have an episode of hematemesis. Chest pain/pressure, and a CT angiogram showing no clear evidence of pulmonary embolism. IV heparin will be discontinued Acute blood loss anemia in the setting of use of IV heparin and hemoglobin dropped down to 6.6 and the patient will be receiving a total of 2 units of packed RBC. Hemodynamically stable at this point Sinus tachycardia and the patient takes a beta liam on outpatient basis. This is worse because of her ongoing pain and anemia. Syncope secondary to hypotension, likely secondary to intravascular volume depletion, recovered Acute leukocytosis improved. Upper GI series normal upper GI series. Mild lactic acidosis 2.6 Morbid obesity due to excess calories Body mass index of 47.1, initial Hypertensive heart disease. Migraines Spina Bifida Osteoarthritis of the hips Osteoarthritis of the knees. Vitamin D deficiency Status post sleeve gastrectomy Vitamin A deficiency Complications of sleeve gastrectomy Intractable nausea vomiting Intra-abdominal adhesions from greater omentum to anterior abdominal wall, lower abdomen Perigastric adhesions Splenomegaly Plan Stop anticoagulation for now, no convincing evidence of pulmonary embolism. Doppler of the lower extremity has been negative. Case was discussed with Dr. Yaya Pineda from radiology. Apply compression devices lower extremities Completed total of 2 units of packed RBC transfusion and repeat hemoglobin IV Reglan and IV Zofran regarding nausea Incentive spirometer Continue normal saline with potassium supplements at the rate of 100 mL an hour Continue Dilaudid for pain control as needed Monitor urine output Monitor blood pressure We'll continue to follow. The patient is currently on room air oxygen.
[2021-12-16] MEDS: TRIMETHOBENZAMIDE 100 MG/ML 2 ML VIAL IM PRN ×2 (10:00→17:25)
[2021-12-16] MEDS: SODIUM FERRIC GLUCONAT-SUCROSE 125 MG in SODIUM CHLORIDE 0.9% 100 ML IVPB SCH (10:02)
--- NOTE | 2021-12-16 12:16 | CDI ---
Documentation Clarification Form Date: 12/16/2021 11:46:09 AM From: Lucie Orona RN CCDS Admit Date: 12/14/2021 08:08:00 AM Patient Name: Razia Lilly Visit Number: [id number] Discharge Date: ATTENTION: The Clinical Documentation Specialists (CDI) and [facility] Coding Staff appreciate your assistance in clarifying documentation. Please respond to the clarification below the line at the bottom and electronically sign. The CDI & [facility] Coding staff will review the response and follow-up if needed. Please note: Queries are made part of the Legal Health Record. If you have any questions, please contact the author of this message via ITS. Dr. Tahir Levin Acute pulmonary embolism is documented 12/16, Pulmonary PN and patient had Marco-en-Y gastric bypass, 12/14. Additional clarification is requested regarding the relationship, if any, that exists between the diagnosis and the procedure. Patients Admitting Diagnosis: Morbid Obesity due to excess calories Post-Operative Diagnosis: Morbid Obesity due to excess calories Procedure performed: Robotic assisted daVinci Xi laparoscopic Marco-en-Y gastric bypass, 100cm antecolic antegastric Marco limb, with 25mm EEA. Extensive lysis of adhesions 30 minutes. Intraoperative esophagogastrojejunoscopy History/Risk Factors: 31-year-old female presents for elective Marco-en-Y gastric bypass. Morbid obesity due to excess calories BMI 47.1. Medical History: Hypertensive heart disease, OA, Spina Bifida, Morbid obesity. H&P, 12/14. Clinical Indicators: 12/15, CTA: There are peripheral nonocclusive pulmonary emboli demonstrated within the left upper lobe segmental branch and questionable in the right lower subsegmental branch. No evidence of right heart strain. 12/16, Pulmonary PN: Suspected GI bleed as the patient was given IV heparin to be covered for an Acute pulmonary embolism. 12/15, APTT: >200.0; 12/16 61.0 12/15, INR: 1.0 Treatment: 12/05 CTA; 12/15 12/25 Heparin IV What relationship, if any, exists between the diagnosis of Pulmonary embolism and the procedure: [ ] Pulmonary embolism is a complication of surgical procedure [ ] Pulmonary embolism is an expected outcome of the surgical procedure [ ] Pulmonary embolism is related to patients co-morbid condition(s) of [insert co-morbid dxs ] & not a complication of the procedure [ ] Other please specify ____ [ ] Unable to determine (Template Last Revised: July 2020) Located indication for pulmonary embolism with this patient. This is working progress. Suspected pulmonary embolism at best. SAVANNAHD
[2021-12-16 13:08] LABS: Glucose,Whole Blood 99 mg/dL (70-110)
[2021-12-16] MEDS: METOCLOPRAMIDE 5 MG/ML 2 ML VIAL IVP SCH ×2 (13:08→19:10)
[2021-12-16] MEDS: METOPROLOL TARTRATE 12.5 MG TAB PO SCH ×2 (13:13→21:38)
[2021-12-16 13:19] LABS: HCT 23.3 % (34.0-46.0); HGB 7.7 gm/dL (11.4-16.0); MCH 28.6 pg (25.0-35.0); MCHC 32.8 g/dL (31.0-37.0); MCV 87.3 fL (80.0-100.0); Mean Platelet Volume 8.8; Platelet Count 207 k/uL (150-450); RBC 2.67 m/uL (3.80-5.40); RDW 15.9 % (11.5-15.5); WBC 9.6 k/uL (3.8-10.6)
[2021-12-16] MEDS: LORazepam 2 MG/ML INJ IV PRN (17:38)
[2021-12-16 20:15] LABS: Basophils % (A) 0 %; Eosinophils # (A) 0.1 k/uL (0-0.7); Eosinophils % (A) 1 %; HCT 23.6 % (34.0-46.0); HGB 8.1 gm/dL (11.4-16.0); Lymphocytes # (A) 1.1 k/uL (1.0-4.8); Lymphocytes % (A) 9 %; MCH 29.1 pg (25.0-35.0); MCHC 34.2 g/dL (31.0-37.0); Mean Platelet Volume 9.1; Monocytes # (A) 0.4 k/uL (0-1.0); Monocytes % (A) 3 %; Neutrophils # (A) 10.1 k/uL (1.3-7.7); Neutrophils % (A) 86 %; Platelet Count 225 k/uL (150-450); RBC 2.78 m/uL (3.80-5.40); RDW 15.6 % (11.5-15.5); WBC 11.7 k/uL (3.8-10.6)
[2021-12-16 21:28] LABS: Glucose,Whole Blood 98 mg/dL (70-110)
[2021-12-16] MEDS: ACETAMINOPHEN IV (For NPO) 1,000 MG in EMPTY BAG 1 BAG IVPB SCH (23:39)
[2021-12-16] MEDS: PIPERACILLIN-TAZOBACTAM 3.375 GM in SODIUM CHLORIDE 0.9% 100 ML IVPB SCH (23:43)
[2021-12-17] MEDS: METOCLOPRAMIDE 5 MG/ML 2 ML VIAL IVP SCH ×5 (00:59→23:47)
[2021-12-17] MEDS: LORazepam 2 MG/ML INJ IV PRN (00:59)
[2021-12-17] MEDS: TRIMETHOBENZAMIDE 100 MG/ML 2 ML VIAL IM PRN (03:09)
[2021-12-17] MEDS: ACETAMINOPHEN IV (For NPO) 1,000 MG in EMPTY BAG 1 BAG IVPB SCH ×3 (06:05→17:43)
[2021-12-17] MEDS: ONDANSETRON 4 MG/2 ML VIAL IVP SCH ×4 (06:08→23:47)
[2021-12-17] MEDS: HYDROmorphone 1 MG/ML 1 ML SYRINGE IVP PRN ×5 (06:08→23:47)
[2021-12-17] MEDS: LACTATED RINGERS 1,000 ML IV SCH (06:28)
[2021-12-17 06:39] LABS: Glucose,Whole Blood 100 mg/dL (70-110)
[2021-12-17] MEDS: INSULIN ASPART (NovoLOG) 100 UNIT/ML VIAL SQ SCH ×4 (06:40→20:06)
[2021-12-17 07:08] LABS: African American GFR (CKD) >90 (>60 ml/min/1.73 sqM); Anion Gap 3 mmol/L; Blood Urea Nitrogen 14 mg/dL (7-17); Calcium 7.8 mg/dL (8.4-10.2); Carbon Dioxide 24 mmol/L (22-30); Chloride 109 mmol/L (98-107); Magnesium 1.9 mg/dL (1.6-2.3); Non-African American GFR(CKD) >90 (>60 ml/min/1.73 sqM); Phosphorus 1.7 mg/dL (2.5-4.5); Potassium 4.4 mmol/L (3.5-5.1); Sodium 136 mmol/L (137-145)
[2021-12-17] MEDS: ALBUTEROL NEBULIZED 2.5 MG/3 ML INHALATION SCH ×4 (07:13→19:06)
--- NOTE | 2021-12-17 08:50 | P.PN ---
Subjective Progress Note Date: 12/17/21 The patient is a 31-year-old female who is currently admitted to the hospital or after undergoing revision of previous gastric sleeve surgery. Postoperatively she developed sinus tachycardia and chest discomfort, therefore cardiology was consulted. She was temporarily started on heparin for possible right upper lobe pulmonary emboli, however this is likely artifact from pulmonary edema. The patient developed a drop in hemoglobin and subsequently underwent 2 units of PRBCs yesterday. The patient was interviewed and examined lying comfortably in bed. She states that no more chest discomfort. She has no cardiac complaints at this time and "just wants to get some rest." GENERAL: Well-appearing, well-nourished and in no acute distress. NECK: Supple without JVD or thyromegaly. LUNGS: Breath sounds clear to auscultation bilaterally. Respiration equal and unlabored. No wheezes, rales or rhonchi. HEART: Regular rate and rhythm without murmurs, rubs or gallops. S1 and S2 heard. EXTREMITIES: Normal range of motion, no edema. No clubbing or cyanosis. Peripheral pulses intact and strong. VITALS: Blood pressure 103/50, pulse 102, SpO2 94% on room air, respiratory rate 14 TELEMETRY: Sinus rhythm to sinus tachycardia, improvement overnight LABS: Sodium 136, potassium 4.4, BUN 14, creatinine 0.61, phos 1.7, mag 1.9 IMPRESSION: Sinus tachycardia, anemia versus vagal injury Postoperative anemia, patient received 2 units. He sees Status post Marco-en-Y with lysis of adhesions and intraoperative esogastrojejunostomy History of palpitations, on beta liam, follows with Dr. Diaz PLAN: No further recommendations from the cardiac standpoint Follow-up with Dr. Diaz outpatient I am dictating on behalf of Dr Sam Nuno's history/physical and assessment/plan. Objective - Vital Signs Vital signs: Vital Signs Temp 98.3 F 12/17/21 04:00 Pulse 102 H 12/17/21 07:00 Resp 14 12/17/21 07:00 BP 103/58 12/17/21 07:00 Pulse Ox 94 L 12/17/21 07:00 FiO2 Intake & Output 12/16/21 12/17/21 12/17/21 18:59 06:59 18:59 Intake Total 720 1200 Output Total 2250 1050 Balance -1530 150 Weight 106.6 kg 113 kg Intake: IV 100 1000 0.9% NaCl with KCl 20 Meq 800 /l 1,000 ml @ 100 mls/hr IV .Q10H [facility] Rx#: [id number] 0.9% NaCl with KCl 20 Meq 100 200 /l 1,000 ml @ 150 mls/hr IV .Q6H40M [facility] Rx#: [id number] Intake, IV Titration 100 Amount Piperacillin-Tazobactam 3 100 .375 gm In Sodium Chloride 0.9% 100 ml @ 25 mls/hr IVPB Q8HR [facility] Rx# :[id number] Oral 100 Blood Product 620 Rc As-1 Unit 310 [id number] Rc As-1 Unit 310 [id number] Output: Urine 1950 1050 Urine/Stool Mix 300 Other: Voiding Method Bedside Commode Bedside Commode # Voids 1 1 # Bowel Movements 1 0 - Labs CBC & Chem 7: 12/16/21 19:12 12/17/21 05:52 Labs: Abnormal Lab Results - Last 24 Hours (Table) 12/16/21 12/16/21 12/16/21 Range/Units 04:50 13:04 19:12 WBC 11.7 H (3.8-10.6) k/uL RBC 2.67 L 2.78 L (3.80-5.40) m/uL Hgb 7.7 L 8.1 L (11.4-16.0) gm/dL Hct 23.3 L 23.6 L (34.0-46.0) % RDW 15.9 H 15.6 H (11.5-15.5) % Neutrophils # 10.1 H (1.3-7.7) k/uL Sodium (137-145) mmol/L Chloride (98-107) mmol/L Calcium (8.4-10.2) mg/dL Phosphorus (2.5-4.5) mg/dL Crossmatch See Detail 12/17/21 Range/Units 05:52 WBC (3.8-10.6) k/uL RBC (3.80-5.40) m/uL Hgb (11.4-16.0) gm/dL Hct (34.0-46.0) % RDW (11.5-15.5) % Neutrophils # (1.3-7.7) k/uL Sodium 136 L (137-145) mmol/L Chloride 109 H (98-107) mmol/L Calcium 7.8 L (8.4-10.2) mg/dL Phosphorus 1.7 L (2.5-4.5) mg/dL Crossmatch Microbiology - Last 24 Hours (Table) 12/15/21 07:30 Blood Culture - Preliminary Blood No Growth after 24 hours
[2021-12-17] MEDS ORDERED: SCOPOLAMINE 1 MG/72 HR PATCH TRANSDERM SCH (09:00)
--- NOTE | 2021-12-17 09:08 | FL ---
SINGLE CONTRAST UPPER GI EXAMINATION: CLINICAL HISTORY: 31-year-old female postop bariatric surgery. Revision to Marco-en-Y gastric bypass 3 days ago after sleeve gastrectomy earlier in the year. TECHNIQUE: Single contrast exam performed with 25 ml Isovue-370 contrast. Total images: 25. Fluoroscopy time: 46 seconds. FINDINGS: The patient swallowed oral contrast without difficulty or delay. Esophageal peristalsis and motility are within normal limits. There is prompt passage of contrast from esophagus into the stomach followed by prompt passage across the gastrojejunostomy into proximal jejunal loops. There is no evidence of contrast extravasation to suggest leak. There is no postsurgical free air seen below the hemidiaphragms. IMPRESSION: No evidence of leak or obstruction status post Marco-en-Y gastric bypass, revision from previous sleev e gastrectomy.
[2021-12-17] MEDS: METOPROLOL TARTRATE 12.5 MG TAB PO SCH ×2 (09:28→20:41)
[2021-12-17] MEDS: PIPERACILLIN-TAZOBACTAM 3.375 GM in SODIUM CHLORIDE 0.9% 100 ML IVPB SCH ×3 (09:28→23:46)
[2021-12-17] MEDS: PANTOPRAZOLE 40 MG/10 ML VIAL IV SCH ×2 (09:28→20:41)
--- NOTE | 2021-12-17 11:40 | P.PN ---
Subjective Progress Note Date: 12/17/21 This is a 31-year-old female patient with history of morbid obesity and the pat ient had an elective Marco-en-Y gastric bypass surgery for intractable nausea and emesis following a previous sleep gastrectomy. The patient has been having persistent problems since his sleep gastrectomy. As such, gastric bypass was offered. The patient underwent the surgery yesterday and this was a robotic- assisted Marco-en-Y gastric bypass surgery associated with laparoscopic extensive lysis of adhesions and intraoperative esophagogastrojuojenoscopy. The patient had minimal blood loss intraoperatively. Postop, the patient had few episodes of emesis and the patient was being treated with a combination of Reglan and Zofran. Subsequently, the patient had 2 episodes of syncope during which the A team was called and the patient was evaluated and the patient was found to be hypotensive and the patient's systolic blood pressure was in the 70s. As such, the patient got transferred to the intensive care unit and the patient was given a total of 3 L of normal saline and currently normotensive running at the rate of 100 mL an hour. She did not require any pressors. This morning, heart rate is around 96 sinus, afebrile, BP is 175 with a pulse ox of 95-96% room air oxygen. Her lungs are clear. Abdomen is soft and there is no direct tenderness rebound tenderness or guarding at the surgical wound site is dry clean and intact. She is not known to have any form of cardiac disease. Lactic acid level is at 2.6. The white cell count is 12.7 with a hemoglobin of 8.2 and there has been drop in hemoglobin compared to 10.3 from yesterday. Note that the white cell count was also elevated yesterday at 20.7 and dropped down to 12.5. Lactic acid level is at 2.5. Resident try to normal. The renal function is also normal. The patient is currently nothing by mouth for now. 12/16/2021, seeing the patient for a follow-up. Events from yesterday were noted. Note that the patient was having episodes of hypotension and chest pain. For that reason, a CT angiogram was done yesterday. At that point, I reviewed the images and I was not convinced that there was a clear-cut evidence of a pulmonary embolism. Nevertheless, the official report from radiology came back positive for pulmonary embolism and the patient was reported to have multiple subsegmental PE. At that point, the patient was placed on IV heparin and a Doppler of the lower extremity was ordered. By around evening, the patient started having abdominal pain. She was also becoming quite tachycardic and a heart rate was in the 130s. Blood work was done and the patient's hemoglobin dropped down to 6.6. IV heparin was stopped and the patient was given a total of 2 units of packed RBCs. At this point in time, a follow-up hemoglobin is still pending. Meanwhile, she is hemodynamically stable. No lower GI bleed. No ongoing hematemesis at this point in time. She is still complaining of abdominal pain. Overnight, she received several doses of Dilaudid without much help. Based on that, a CAT scan of the abdomen was also done yesterday and the CAT scan of the abdomen and pelvis showed dilated small bowel loops in the mid abdomen suggestive of a questionable mechanical small bowel obstruction and this wasn't new finding compared to the previous examination. Otherwise, no other acute abnormalities were noted. No evidence of any retroperitoneal bleed or lymphadenopathy. Hemodynamically, she is stable. She is still tachycardic. No pressors was utilized. IV fluids are running in the form of normal saline with potassium at the rate of 100 mL an hour. Doppler of the lower extremity ischemic also negative. Echo was done yesterday and it showed a preserved LV function with an ejection fraction of 55-60%. No other acute abnormalities have been noted. 12/17/2021, the patient is being seen for a follow-up. The patient is calm and comfortable. No significant abdominal pain at today's evaluation. She did have a large bowel movement yesterday that was bloody probably some residual or leftover blood within the GI system. Hemoglobin remains stable at 8.1. The follow-up hemoglobin is to be done today. The patient is on no anticoagulants. The patient is on room air oxygen. The patient is going to undergo an upper GI series. She did spike a temperature yesterday of 100.6. This was noted by general surgery. The patient was started on IV Zosyn. This is essentially an empiric antibiotic coverage. Hemodynamically stable. Room air pulse ox 94%. No significant nausea or emesis. No significant chest pain. No other complaints otherwise for now. She is on Dilaudid for pain control 1 mg every 3 hours. She is also taken Reglan and Zofran for nausea intermittently during the day. Objective - Vital Signs Vital signs: Vital Signs Temp 98.4 F 12/17/21 08:00 Pulse 92 12/17/21 11:00 Resp 16 12/17/21 11:00 BP 104/64 12/17/21 11:00 Pulse Ox 94 L 12/17/21 11:00 FiO2 Intake & Output 12/16/21 12/17/21 12/17/21 18:59 06:59 18:59 Intake Total 720 1200 600 Output Total 2250 1050 Balance -1530 150 600 Weight 106.6 kg 113 kg Intake: IV 100 1000 400 0.9% NaCl with KCl 20 Meq 800 400 /l 1,000 ml @ 100 mls/hr IV .Q10H [facility] Rx#: [id number] 0.9% NaCl with KCl 20 Meq 100 200 /l 1,000 ml @ 150 mls/hr IV .Q6H40M [facility] Rx#: [id number] Intake, IV Titration 100 200 Amount Piperacillin-Tazobactam 3 100 200 .375 gm In Sodium Chloride 0.9% 100 ml @ 25 mls/hr IVPB Q8HR [facility] Rx# :[id number] Oral 100 Blood Product 620 Rc As-1 Unit 310 [id number] Rc As-1 Unit 310 [id number] Output: Urine 1950 1050 Urine/Stool Mix 300 Other: Voiding Method Bedside Commode Bedside Commode Bedside Commode # Voids 1 1 1 # Bowel Movements 1 0 1 - Exam GENERAL: Well-developed in no acute distress. The patient is currently on room air oxygen and the breathing is nonlabored Head exam was generally normal. There was no scleral icterus or corneal arcus. Mucous membranes were moist. HEENT: No scleral icterus. Extraocular movements grossly intact. Hears c onversational speech. No nasal drainage. NECK: Supple without lymphadenopathy. Lungs were clear to auscultation and percussion, and with normal diaphragmatic excursion. No wheezes or rales were noted. Cardiac exam revealed the PMI to be normally situated and sized. The rhythm was regular and no extrasystoles were noted during several minutes of auscultation. The first and second heart sounds were normal and physiologic splitting of the second heart sound was noted. There were no murmurs, rubs, clicks, or gallops. ABDOMEN: Dressing intact. No peritonitis. Appropriate left upper quadrant inci sional pain. MUSCULOSKELETAL: No clubbing, cyanosis. NEURO: No focal or lateralizing signs. Cranial nerves 2 through 12 grossly within normal limits. PSYCH: Appropriate affect. Alert and oriented to person, place and time. Examination of the skin revealed no evidence of significant rashes, suspicious appearing nevi or other concerning lesions. - Labs CBC & Chem 7: 12/16/21 19:12 12/17/21 05:52 Labs: Abnormal Lab Results - Last 24 Hours (Table) 12/16/21 12/16/21 12/17/21 Range/Units 13:04 19:12 05:52 WBC 11.7 H (3.8-10.6) k/uL RBC 2.67 L 2.78 L (3.80-5.40) m/uL Hgb 7.7 L 8.1 L (11.4-16.0) gm/dL Hct 23.3 L 23.6 L (34.0-46.0) % RDW 15.9 H 15.6 H (11.5-15.5) % Neutrophils # 10.1 H (1.3-7.7) k/uL Sodium 136 L (137-145) mmol/L Chloride 109 H (98-107) mmol/L Calcium 7.8 L (8.4-10.2) mg/dL Phosphorus 1.7 L (2.5-4.5) mg/dL Microbiology - Last 24 Hours (Table) 12/15/21 07:30 Blood Culture - Preliminary Blood No Growth after 48 hours Assessment and Plan Plan: Ongoing gastric bypass surgery and the patient is postop day #3. The patient underwent a robotic-assisted Marco-en-Y gastric bypass surgery in addition to laparoscopic lysis of adhesions and intraoperative esophagogastroduodenoscopy. GI bleed, facilitated by the use of IV heparin and this was introduced for suspected PE. IV heparin has been discontinued. Patient is hemodynamically stable. The patient is currently on room air oxygen. Hemoglobin currently is at 8.1 and the patient received a total of 2 units of packed RBC. Chest pain/pressure, and a CT angiogram showing no clear evidence of pulmonary embolism. IV heparin will be discontinued, the patient currently is free of any chest pain. Acute blood loss anemia in the setting of use of IV heparin and hemoglobin dropped down to 6.6 and the patient will be receiving a total of 2 units of packed RBC. Hemodynamically stable at this point Sinus tachycardia and the patient takes a beta liam on outpatient basis. This is worse because of her ongoing pain and anemia. Syncope secondary to hypotension, likely secondary to intravascular volume depletion, recovered Acute leukocytosis improved. Upper GI series normal upper GI series. Mild lactic acidosis 2.6 Acute febrile episodes, started on IV Zosyn Morbid obesity due to excess calories Body mass index of 47.1, initial Hypertensive heart disease. Migraines Spina Bifida Osteoarthritis of the hips Osteoarthritis of the knees. Vitamin D deficiency Status post sleeve gastrectomy Vitamin A deficiency Complications of sleeve gastrectomy Intractable nausea vomiting, stable Intra-abdominal adhesions from greater omentum to anterior abdominal wall, lower abdomen Perigastric adhesions Splenomegaly Plan The patient remains on room air oxygen Monitor hemoglobin No need for anticoagulation Upper GI series to assess surgical anastomosis Continue Zosyn IV Reglan and IV Zofran regarding nausea Incentive spirometer Continue normal saline with potassium supplements at the rate of 100 mL an hour Continue Dilaudid for pain control as needed Monitor urine output Monitor blood pressure We'll continue to follow. .
[2021-12-17 11:45] LABS: Glucose,Whole Blood 96 mg/dL (70-110)
[2021-12-17 11:54] LABS: Anisocytosis Slight; Basophils % (A) 1 %; Eosinophils # (A) 0.1 k/uL (0-0.7); Eosinophils % (A) 2 %; Lymphocytes # (A) 1.4 k/uL (1.0-4.8); Lymphocytes % (A) 19 %; MCH 29.2 pg (25.0-35.0); MCHC 34.1 g/dL (31.0-37.0); MCV 85.6 fL (80.0-100.0); Mean Platelet Volume 10.4; Monocytes # (A) 0.3 k/uL (0-1.0); Monocytes % (A) 4 %; Neutrophils # (A) 5.2 k/uL (1.3-7.7); Neutrophils % (A) 74 %; Platelet Count 188 k/uL (150-450); RBC 2.32 m/uL (3.80-5.40); RDW 16.4 % (11.5-15.5)
[2021-12-17 11:57] LABS: HGB 6.8 gm/dL (11.4-16.0)
[2021-12-17 11:58] LABS: HCT 19.9 % (34.0-46.0)
[2021-12-17] MEDS: 0.9% NACL WITH KCL 20 MEQ/L 1,000 ML IV SCH ×2 (12:35→20:40)
[2021-12-17] MEDS: SODIUM FERRIC GLUCONAT-SUCROSE 125 MG in SODIUM CHLORIDE 0.9% 100 ML IVPB SCH (13:55)
[2021-12-17] MEDS ORDERED: Phosphorus Replacement Protoco 1 EACH MISC MISCELLANE PRN (14:20)
[2021-12-17] MEDS: SODIUM PHOSPHATE 10 MMOL in SODIUM CHLORIDE 0.9% 250 ML IVPB SCH ×2 (15:39→17:34)
--- NOTE | 2021-12-17 15:42 | P.PN ---
Subjective Progress Note Date: 12/17/21 CHIEF COMPLAINT: Morbid obesity HISTORY OF PRESENT ILLNESS: Patient is postop day #3 status post robotic- assisted Marco-en-Y gastric bypass. Patient seen and examined in the ICU this morning. Patient having bloody bowel movements. She did have a hemoglobin of 6.8. A repeat hemoglobin has been ordered for 3:00 this afternoon. Patient's vitals have shown improvement. Her blood pressure and heart rate have shown improvement. She is tolerating bariatric clear liquids. She will be transferred to a regular medical floor today. Her upper GI shows no evidence of leak or obstruction. Patient's pain is controlled. She did have a low-grade temp last night of 100.6. WBC is 7 hemoglobin 6.8 platelets 188 sodium 136 potassium 4.4 creatinine 0.61 phosphorus 1.7 magnesium 1.9 PHYSICAL EXAM: VITAL SIGNS: Reviewed GENERAL: Well-developed in no acute distress. HEENT: No sclera icterus. Extraocular movements grossly intact. Moist buccal mucosa. Head is atraumatic, normocephalic. Hears conversational speech. No nasal drainage. NECK: Supple without lymphadenopathy. CHEST: Non-labored respirations and equal bilateral excursions. CARDIOVASCULAR: Palpable 2+ radial pulses. ABDOMEN: Soft. Nondistended. MUSCULOSKELETAL: No clubbing or cyanosis. NEUROLOGIC: No focal or lateralizing signs. Cranial nerves II through XII grossly intact. PSYCH: Appropriate affect. Alert and oriented to person, place and time. SKIN: Well perfused. Good skin turgor. ASSESSMENT: 1. Morbid obesity due to excess calories 2. Body mass index of 47.1, initial 3. Hypertensive heart disease. 4. Migraines 5. Spina Bifida 6. Osteoarthritis of the hips 7. Osteoarthritis of the knees. 8. Vitamin D deficiency 9. Status post sleeve gastrectomy 10. Vitamin A deficiency 11. Complications of sleeve gastrectomy 12. Intractable nausea vomiting 13. Intra-abdominal adhesions from greater omentum to anterior abdominal wall, lower abdomen 14. Perigastric adhesions 15. Splenomegaly 16. Bleeding secondary to acute nausea and vomiting causing rebleed at gastrojejunal anastomosis 18. Hypophosphatemia PLAN: -Patient can be transferred to regular medical floor -Repeat hemoglobin at 3 PM -Continue bariatric clear liquid diet -Continue pain medication as needed -Continue antiemetics -Continue IV iron -Continue IV fluids -Continue to hold any anticoagulation -Continue antibiotics -Phosphorus being replaced -SCDs for DVT prophylaxis and GI prophylaxis Protonix Physician Cableman note has been reviewed by physician. Signing provider agrees with the documented findings, assessment, and plan of care. Objective - Vital Signs Vital signs: Vital Signs Temp 98.5 F 12/17/21 12:00 Pulse 100 12/17/21 12:00 Resp 16 12/17/21 12:00 BP 104/64 12/17/21 12:00 Pulse Ox 95 12/17/21 14:59 FiO2 Intake & Output 12/16/21 12/17/21 12/17/21 18:59 06:59 18:59 Intake Total 720 1200 1100 Output Total 2250 1050 Balance -5356 274 9938 Weight 106.6 kg 113 kg Intake: IV 100 1000 800 0.9% NaCl with KCl 20 Meq 800 800 /l 1,000 ml @ 100 mls/hr IV .Q10H [facility] Rx#: [id number] 0.9% NaCl with KCl 20 Meq 100 200 /l 1,000 ml @ 150 mls/hr IV .Q6H40M [facility] Rx#: [id number] Intake, IV Titration 100 300 Amount Piperacillin-Tazobactam 3 100 200 .375 gm In Sodium Chloride 0.9% 100 ml @ 25 mls/hr IVPB Q8HR [facility] Rx# :[id number] Sodium Ferric Gluconat- 100 Sucrose 125 mg In Sodium Chloride 0.9% 100 ml @ 100 mls/hr IVPB DAILY [facility] Rx#:[id number] Oral 100 Blood Product 620 Rc As-1 Unit 310 [id number] Rc As-1 Unit 310 [id number] Output: Urine 1950 1050 Urine/Stool Mix 300 Other: Voiding Method Bedside Commode Bedside Commode Bedside Commode # Voids 1 1 1 # Bowel Movements 1 0 1 - Labs CBC & Chem 7: 12/17/21 10:46 12/17/21 05:52 Labs: Abnormal Lab Results - Last 24 Hours (Table) 12/16/21 12/17/21 12/17/21 Range/Units 19:12 05:52 10:46 WBC 11.7 H (3.8-10.6) k/uL RBC 2.78 L 2.32 L (3.80-5.40) m/uL Hgb 8.1 L 6.8 L* (11.4-16.0) gm/dL Hct 23.6 L 19.9 L* (34.0-46.0) % RDW 15.6 H 16.4 H (11.5-15.5) % Neutrophils # 10.1 H (1.3-7.7) k/uL Sodium 136 L (137-145) mmol/L Chloride 109 H (98-107) mmol/L Calcium 7.8 L (8.4-10.2) mg/dL Phosphorus 1.7 L (2.5-4.5) mg/dL Microbiology - Last 24 Hours (Table) 12/15/21 07:30 Blood Culture - Preliminary Blood No Growth after 48 hours
[2021-12-17 16:09] LABS: Anisocytosis Slight; MCH 28.6 pg (25.0-35.0); MCHC 33.1 g/dL (31.0-37.0); MCV 86.4 fL (80.0-100.0); Mean Platelet Volume 9.5; Platelet Count 183 k/uL (150-450); RBC 2.25 m/uL (3.80-5.40); RDW 16.3 % (11.5-15.5); WBC 6.6 k/uL (3.8-10.6)
[2021-12-17 16:14] LABS: HCT 19.5 % (34.0-46.0); HGB 6.4 gm/dL (11.4-16.0)
[2021-12-17 17:17] LABS: Glucose,Whole Blood 96 mg/dL (70-110)
[2021-12-17 20:03] LABS: Glucose,Whole Blood 94 mg/dL (70-110)
[2021-12-18] MEDS: HYDROmorphone 1 MG/ML 1 ML SYRINGE IVP PRN ×3 (02:49→09:15)
[2021-12-18] MEDS: TRIMETHOBENZAMIDE 100 MG/ML 2 ML VIAL IM PRN (02:56)
[2021-12-18 04:23] LABS: Anisocytosis Slight; Basophils % (A) 1 %; Eosinophils # (A) 0.3 k/uL (0-0.7); Eosinophils % (A) 5 %; HCT 22.5 % (34.0-46.0); HGB 7.6 gm/dL (11.4-16.0); Lymphocytes # (A) 1.7 k/uL (1.0-4.8); Lymphocytes % (A) 25 %; MCH 28.9 pg (25.0-35.0); MCHC 33.8 g/dL (31.0-37.0); MCV 85.6 fL (80.0-100.0); Monocytes # (A) 0.3 k/uL (0-1.0); Monocytes % (A) 5 %; Neutrophils # (A) 4.3 k/uL (1.3-7.7); Neutrophils % (A) 64 %; Platelet Count 152 k/uL (150-450); RBC 2.63 m/uL (3.80-5.40); RDW 16.3 % (11.5-15.5); WBC 6.7 k/uL (3.8-10.6)
[2021-12-18] MEDS: LACTATED RINGERS 1,000 ML IV SCH (05:58)
[2021-12-18] MEDS: ONDANSETRON 4 MG/2 ML VIAL IVP SCH ×2 (05:58→12:20)
[2021-12-18] MEDS: METOCLOPRAMIDE 5 MG/ML 2 ML VIAL IVP SCH ×2 (05:59→12:20)
[2021-12-18 06:25] LABS: Glucose,Whole Blood 88 mg/dL (70-110)
[2021-12-18 06:31] LABS: Anisocytosis Slight; Basophils # (A) 0.1 k/uL (0-0.2); Basophils % (A) 1 %; Eosinophils # (A) 0.4 k/uL (0-0.7); Eosinophils % (A) 6 %; HCT 22.4 % (34.0-46.0); HGB 7.7 gm/dL (11.4-16.0); Lymphocytes # (A) 1.5 k/uL (1.0-4.8); Lymphocytes % (A) 24 %; MCH 29.7 pg (25.0-35.0); MCHC 34.5 g/dL (31.0-37.0); MCV 85.9 fL (80.0-100.0); Mean Platelet Volume 9.6; Monocytes # (A) 0.2 k/uL (0-1.0); Monocytes % (A) 3 %; Neutrophils # (A) 4.1 k/uL (1.3-7.7); Neutrophils % (A) 65 %; Platelet Count 196 k/uL (150-450); RBC 2.61 m/uL (3.80-5.40); RDW 16.4 % (11.5-15.5); WBC 6.4 k/uL (3.8-10.6)
[2021-12-18] MEDS: INSULIN ASPART (NovoLOG) 100 UNIT/ML VIAL SQ SCH ×2 (06:31→12:19)
[2021-12-18 06:57] LABS: African American GFR (CKD) >90 (>60 ml/min/1.73 sqM); Anion Gap 4 mmol/L; Blood Urea Nitrogen 8 mg/dL (7-17); Calcium 7.8 mg/dL (8.4-10.2); Carbon Dioxide 22 mmol/L (22-30); Chloride 111 mmol/L (98-107); Glucose 87 mg/dL (74-99); Magnesium 1.7 mg/dL (1.6-2.3); Non-African American GFR(CKD) >90 (>60 ml/min/1.73 sqM); Phosphorus 3.2 mg/dL (2.5-4.5); Potassium 4.5 mmol/L (3.5-5.1); Sodium 137 mmol/L (137-145)
[2021-12-18] MEDS: ALBUTEROL NEBULIZED 2.5 MG/3 ML INHALATION SCH ×3 (08:07→15:07)
[2021-12-18] MEDS: PANTOPRAZOLE 40 MG/10 ML VIAL IV SCH (09:14)
[2021-12-18] MEDS: SODIUM FERRIC GLUCONAT-SUCROSE 125 MG in SODIUM CHLORIDE 0.9% 100 ML IVPB SCH (09:14)
[2021-12-18] MEDS: METOPROLOL TARTRATE 12.5 MG TAB PO SCH (09:23)
[2021-12-18 09:30] VITALS: BP 133/73; PULSE 97; RESP 13; TEMP 98.9
[2021-12-18] MEDS: MAGNESIUM SULFATE-D5W PMX 1 GM in DEXTROSE/WATER 1 100ML.BAG IVPB SCH ×2 (10:38→12:20)
[2021-12-18] MEDS: PIPERACILLIN-TAZOBACTAM 3.375 GM in SODIUM CHLORIDE 0.9% 100 ML IVPB SCH (10:44)
[2021-12-18 11:41] VITALS: BMI 41.5
[2021-12-18 12:17] LABS: Glucose,Whole Blood 101 mg/dL (70-110)
[2021-12-18] MEDS: LORazepam 2 MG/ML INJ IV PRN (12:28)
--- NOTE | 2021-12-18 13:05 | P.PN ---
Subjective Progress Note Date: 12/18/21 This is a 31-year-old female patient with history of morbid obesity and the pat ient had an elective Marco-en-Y gastric bypass surgery for intractable nausea and emesis following a previous sleep gastrectomy. The patient has been having persistent problems since his sleep gastrectomy. As such, gastric bypass was offered. The patient underwent the surgery yesterday and this was a robotic- assisted Marco-en-Y gastric bypass surgery associated with laparoscopic extensive lysis of adhesions and intraoperative esophagogastrojuojenoscopy. The patient had minimal blood loss intraoperatively. Postop, the patient had few episodes of emesis and the patient was being treated with a combination of Reglan and Zofran. Subsequently, the patient had 2 episodes of syncope during which the A team was called and the patient was evaluated and the patient was found to be hypotensive and the patient's systolic blood pressure was in the 70s. As such, the patient got transferred to the intensive care unit and the patient was given a total of 3 L of normal saline and currently normotensive running at the rate of 100 mL an hour. She did not require any pressors. This morning, heart rate is around 96 sinus, afebrile, BP is 175 with a pulse ox of 95-96% room air oxygen. Her lungs are clear. Abdomen is soft and there is no direct tenderness rebound tenderness or guarding at the surgical wound site is dry clean and intact. She is not known to have any form of cardiac disease. Lactic acid level is at 2.6. The white cell count is 12.7 with a hemoglobin of 8.2 and there has been drop in hemoglobin compared to 10.3 from yesterday. Note that the white cell count was also elevated yesterday at 20.7 and dropped down to 12.5. Lactic acid level is at 2.5. Resident try to normal. The renal function is also normal. The patient is currently nothing by mouth for now. 12/16/2021, seeing the patient for a follow-up. Events from yesterday were noted. Note that the patient was having episodes of hypotension and chest pain. For that reason, a CT angiogram was done yesterday. At that point, I reviewed the images and I was not convinced that there was a clear-cut evidence of a pulmonary embolism. Nevertheless, the official report from radiology came back positive for pulmonary embolism and the patient was reported to have multiple subsegmental PE. At that point, the patient was placed on IV heparin and a Doppler of the lower extremity was ordered. By around evening, the patient started having abdominal pain. She was also becoming quite tachycardic and a heart rate was in the 130s. Blood work was done and the patient's hemoglobin dropped down to 6.6. IV heparin was stopped and the patient was given a total of 2 units of packed RBCs. At this point in time, a follow-up hemoglobin is still pending. Meanwhile, she is hemodynamically stable. No lower GI bleed. No ongoing hematemesis at this point in time. She is still complaining of abdominal pain. Overnight, she received several doses of Dilaudid without much help. Based on that, a CAT scan of the abdomen was also done yesterday and the CAT scan of the abdomen and pelvis showed dilated small bowel loops in the mid abdomen suggestive of a questionable mechanical small bowel obstruction and this wasn't new finding compared to the previous examination. Otherwise, no other acute abnormalities were noted. No evidence of any retroperitoneal bleed or lymphadenopathy. Hemodynamically, she is stable. She is still tachycardic. No pressors was utilized. IV fluids are running in the form of normal saline with potassium at the rate of 100 mL an hour. Doppler of the lower extremity ischemic also negative. Echo was done yesterday and it showed a preserved LV function with an ejection fraction of 55-60%. No other acute abnormalities have been noted. 12/17/2021, the patient is being seen for a follow-up. The patient is calm and comfortable. No significant abdominal pain at today's evaluation. She did have a large bowel movement yesterday that was bloody probably some residual or leftover blood within the GI system. Hemoglobin remains stable at 8.1. The follow-up hemoglobin is to be done today. The patient is on no anticoagulants. The patient is on room air oxygen. The patient is going to undergo an upper GI series. She did spike a temperature yesterday of 100.6. This was noted by general surgery. The patient was started on IV Zosyn. This is essentially an empiric antibiotic coverage. Hemodynamically stable. Room air pulse ox 94%. No significant nausea or emesis. No significant chest pain. No other complaints otherwise for now. She is on Dilaudid for pain control 1 mg every 3 hours. She is also taken Reglan and Zofran for nausea intermittently during the day. 12/18/2021, seeing the patient for a follow-up. The patient is doing extremely well. On today's evaluation, there is no nausea vomiting or diarrhea or abdominal pain. No further bouts of GI bleeding. The patient's anticoagulant. The patient on room air oxygen. Pulse ox is around 94-95%. The patient is afebrile. The patient's hemodynamically stable. She underwent an upper GI ser ies yesterday which showed no anastomotic leak. Follow-up blood work from today showed a white cell count of 6.4 with hemoglobin of 7.7 and a platelet count of 196. BUN is at 8 and a creatinine of 0.58 and the sodium level is 137. No issues with nausea and vomiting. Upper GI series showed no evidence of any leak or obstruction post Marco-en-Y gastric bypass surgery. The patient also had a revision from the previous sleeve gastrectomy. Objective - Vital Signs Vital signs: Vital Signs Temp 98.9 F 12/18/21 08:00 Pulse 97 12/18/21 09:00 Resp 13 12/18/21 09:00 BP 133/73 12/18/21 09:00 Pulse Ox 98 12/18/21 09:00 FiO2 Intake & Output 12/17/21 12/18/21 12/18/21 18:59 06:59 18:59 Intake Total 1100 670 440 Output Total 0 0 Balance 1100 670 440 Weight 116.6 kg 116.6 kg Intake: IV 800 360 440 0.9% NaCl with KCl 20 Meq 800 200 /l 1,000 ml @ 100 mls/hr IV .Q10H [facility] Rx#: [id number] Lactated Ringers 1,000 ml 160 40 @ 20 mls/hr IV .Q24H [facility] Rx#:[id number] Magnesium Sulfate-D5w Pmx 200 1 gm In Dextrose/Water 1 100ml.bag @ 100 mls/hr IVPB Q1H [facility] Rx#: [id number] Piperacillin-Tazobactam 3 100 .375 gm In Sodium Chloride 0.9% 100 ml @ 25 mls/hr IVPB Q8HR [facility] Rx# :[id number] Sodium Ferric Gluconat- 100 Sucrose 125 mg In Sodium Chloride 0.9% 100 ml @ 100 mls/hr IVPB DAILY [facility] Rx#:[id number] Intake, IV Titration 300 Amount Piperacillin-Tazobactam 3 200 .375 gm In Sodium Chloride 0.9% 100 ml @ 25 mls/hr IVPB Q8HR [facility] Rx# :[id number] Sodium Ferric Gluconat- 100 Sucrose 125 mg In Sodium Chloride 0.9% 100 ml @ 100 mls/hr IVPB DAILY [facility] Rx#:[id number] Blood Product 310 Rc As-1 Unit 310 [id number] Output: Urine 0 0 Other: Voiding Method Bedside Commode Bedside Commode Bedside Commode # Voids 1 1 1 # Bowel Movements 1 - Exam GENERAL: Well-developed in no acute distress. The patient is currently on room air oxygen and the breathing is nonlabored Head exam was generally normal. There was no scleral icterus or corneal arcus. Mucous membranes were moist. HEENT: No scleral icterus. Extraocular movements grossly intact. Hears conversational speech. No nasal drainage. NECK: Supple without lymphadenopathy. Lungs were clear to auscultation and percussion, and with normal diaphragmatic excursion. No wheezes or rales were noted. Cardiac exam revealed the PMI to be normally situated and sized. The rhythm was regular and no extrasystoles were noted during several minutes of auscultation. The first and second heart sounds were normal and physiologic splitting of the second heart sound was noted. There were no murmurs, rubs, clicks, or gallops. ABDOMEN: Dressing intact. No peritonitis. Appropriate left upper quadrant incisional pain. MUSCULOSKELETAL: No clubbing, cyanosis. NEURO: No focal or lateralizing signs. Cranial nerves 2 through 12 grossly within normal limits. PSYCH: Appropriate affect. Alert and oriented to person, place and time. Examination of the skin revealed no evidence of significant rashes, suspicious appearing nevi or other concerning lesions. - Labs CBC & Chem 7: 12/18/21 06:14 12/18/21 06:14 Labs: Abnormal Lab Results - Last 24 Hours (Table) 12/16/21 12/17/21 12/18/21 Range/Units 04:50 15:25 03:33 RBC 2.25 L 2.63 L (3.80-5.40) m/uL Hgb 6.4 L* 7.6 L (11.4-16.0) gm/dL Hct 19.5 L* 22.5 L (34.0-46.0) % RDW 16.3 H 16.3 H (11.5-15.5) % Chloride (98-107) mmol/L Calcium (8.4-10.2) mg/dL Crossmatch See Detail 12/18/21 12/18/21 Range/Units 06:14 06:14 RBC 2.61 L (3.80-5.40) m/uL Hgb 7.7 L (11.4-16.0) gm/dL Hct 22.4 L (34.0-46.0) % RDW 16.4 H (11.5-15.5) % Chloride 111 H (98-107) mmol/L Calcium 7.8 L (8.4-10.2) mg/dL Crossmatch Microbiology - Last 24 Hours (Table) 12/15/21 07:30 Blood Culture - Preliminary Blood No Growth after 72 hours Assessment and Plan Plan: Ongoing gastric bypass surgery and the patient is postop day #4. The patient underwent a robotic-assisted Marco-en-Y gastric bypass surgery in addition to laparoscopic lysis of adhesions and intraoperative esophagogastroduodenoscopy. The patient is hemodynamically stable. The patient is doing extremely well. No complaints for today. Upper GI series showed no evidence of any anastomotic leaks. GI bleed, facilitated by the use of IV heparin and this was introduced for suspected PE. IV heparin has been discontinued. Patient is hemodynamically stable. The patient is currently on room air oxygen. Hemoglobin currently is at 8.1 and the patient received a total of 2 units of packed RBC. Hemoglobin is stable for now at 7.7. Chest pain/pressure, and a CT angiogram showing no clear evidence of pulmonary embolism. IV heparin will be discontinued, the patient currently is free of any chest pain. Acute blood loss anemia in the setting of use of IV heparin and hemoglobin dropped down to 6.6 and the patient will be receiving a total of 2 units of packed RBC. Hemodynamically stable at this point Sinus tachycardia recovered by Syncope secondary to hypotension, likely secondary to intravascular volume depletion, recovered Acute leukocytosis improved. Upper GI series normal upper GI series. Mild lactic acidosis 2.6 Acute febrile episodes, started on IV Zosyn Morbid obesity due to excess calories Body mass index of 47.1, initial Hypertensive heart disease. Migraines Spina Bifida Osteoarthritis of the hips Osteoarthritis of the knees. Vitamin D deficiency Status post sleeve gastrectomy Vitamin A deficiency Complications of sleeve gastrectomy Intractable nausea vomiting, stable Intra-abdominal adhesions from greater omentum to anterior abdominal wall, lower abdomen Perigastric adhesions Splenomegaly Plan The patient remains on room air oxygen Monitor hemoglobin No need for anticoagulation Upper GI series to assess surgical anastomosis, was completed and the patient had no evidence of any obstruction or anastomotic leaks. Continue Zosyn Incentive spirometer IV fluids to KVO The patient has adequate pain control Discharge possibly home today
--- NOTE | 2021-12-18 14:07 | P.DS ---
Providers Date of admission: 12/14/21 08:08 Expected date of discharge: 12/18/21 Attending physician: Magy Park Consults: 12/15/21 06:40 Consult Physician Routine Consulting Provider: Tahir Levin Consult Reason/Comments: ICU management Do you want consulting provider notified?: Already Contacted 12/15/21 12:34 Consult Physician Routine Consulting Provider: Sami León Consult Reason/Comments: new onset CP, tachycardia Do you want consulting provider notified?: Yes Primary care physician: Mckenna Diehl Hospital Course: Discharge diagnosis 1. Morbid obesity due to excess calories 2. Body mass index of 47.1, initial 3. Hypertensive heart disease. 4. Migraines 5. Spina Bifida 6. Osteoarthritis of the hips 7. Osteoarthritis of the knees. 8. Vitamin D deficiency 9. Status post sleeve gastrectomy 10. Vitamin A deficiency 11. Complications of sleeve gastrectomy 12. Intractable nausea vomiting 13. Intra-abdominal adhesions from greater omentum to anterior abdominal wall, lower abdomen 14. Perigastric adhesions 15. Splenomegaly 16. Bleeding secondary to acute nausea and vomiting causing rebleed at gastrojejunal anastomosis 18. Hypophosphatemia 19. Hypomagnesemia Hospital course Razia Lilly is a 31-year-old female status post sleeve gastrectomy, 05/04/21. She has intractable nausea and vomiting following her procedure. Despite attempts at dilation including medical treatment, patient has persistent problems with her sleeve gastrectomy including intractable nausea vomiting. Gastric bypass was offered for correction of her symptoms. Patient is status post robotic-assisted Marco-en-Y gastric bypass. After surgery, patient had a syncopal episode. She had a few episodes of vomiting. It was felt that the bleeding was secondary to acute nausea and vomiting causing rebleed at the gastrojejunal anastomosis. She was hypotensive and tachycardic. She received 3 L of normal saline. She required a transfer to the ICU. She did have a drop in hemoglobin. Patient did require 3 units of blood during this admission. Patient also had a computed tomography scan of the chest with concerns of possible PE. Upon further discussion with radiologist and pulmonologists and due to patient's actual clinical picture they felt that there was no true evidence of PE. IV heparin that had initially been started was discontinued. She also was supposed to be on a beta liam that she takes at home and had not been receiving as well. Patient had some bloody stools which were expected due to bleeding from the anastomosis. This has resolved. Her hemoglobin has stabilized at 7.7. She had an upper GI done that showed no evidence of leak or obstruction. Patient is tolerating the bariatric clear liquid diet. Patient's vitals are stable. She has been up and ambulating. She is afebrile. She is stable for discharge. Physician [employer] Supervisor note has been reviewed by physician. Signing provider agrees with the documented findings, assessment, and plan of care. Patient Condition at Discharge: Stable Plan - Discharge Summary Discharge Rx Participant: Yes New Discharge Prescriptions: New bisacodyL [Dulcolax] 5 mg PO DAILY PRN #10 tab PRN Reason: Constipation Acetaminophen Tab [Tylenol] 1,000 mg PO Q6HR PRN #30 tablet PRN Reason: Pain Ondansetron Odt [Zofran Odt] 4 mg PO Q8HR PRN #9 tab PRN Reason: Nausea Metoprolol Tartrate 12.5 mg PO BID #60 tab Simethicone 40 mg/0.6 ml Drops [Mylicon Drops] 40 mg PO PCHS PRN #30 ml PRN Reason: Gas Omeprazole [PriLOSEC] 40 mg PO DAILY #30 cap Continue EPINEPHrine (Auto Inject) [Epipen] 0.3 mg IM ONCE PRN PRN Reason: Anaphylaxis Erenumab-Aooe [Aimovig Autoinjector] 70 mg SQ QMONTHLY Discontinued Multivitamins, Thera [Multivitamin (formulary)] 1 tab PO DAILY Ergocalciferol [Vitamin D2 (1250 Mcg = 79233 Iu)] 50,000 unit PO WEEKLY Metoprolol Succinate (ER) [Toprol Xl] 25 mg PO DAILY Vitamin C -Unknown Dose 1 tab PO DAILY Calcium Carbonate/Vitamin D3 [Calcium 500 mg Chewable Tablet] 1 tab PO DAILY Discharge Medication List EPINEPHrine (Auto Inject) [Epipen] 0.3 mg IM ONCE PRN 04/28/20 [History] Erenumab-Aooe [Aimovig Autoinjector] 70 mg SQ QMONTHLY 12/10/20 [History] Acetaminophen Tab [Tylenol] 1,000 mg PO Q6HR PRN #30 tablet 12/18/21 [Rx] Metoprolol Tartrate 12.5 mg PO BID #60 tab 12/18/21 [Rx] Omeprazole [PriLOSEC] 40 mg PO DAILY #30 cap 12/18/21 [Rx] Ondansetron Odt [Zofran Odt] 4 mg PO Q8HR PRN #9 tab 12/18/21 [Rx] Simethicone 40 mg/0.6 ml Drops [Mylicon Drops] 40 mg PO PCHS PRN #30 ml 12/18/21 [Rx] bisacodyL [Dulcolax] 5 mg PO DAILY PRN #10 tab 12/18/21 [Rx] Follow up Appointment(s)/Referral(s): Magy Park MD [STAFF PHYSICIAN] - 12/23/21 1:30 pm (At the bariatric center.) Patient Instructions/Handouts: Chronic Hypertension (DC), Anemia (DC), Nutrition after Bariatric Surgery (DC), Marco-en-Y Gastric Bypass (DC) Activity/Diet/Wound Care/Special Instructions: Metoprolol Rx per cardiology service Wear abdominal binder at all times for comfort. No lifting over 4 pounds in 4 weeks You May shower. No bath tub soaks for two weeks Use Tylenol scheduled for the next 24-48 hours for best pain relief. Use ice along incisions for the today to prevent swelling. open, cut or crush all pills to the size smaller than a tic tac Hold on taking all vitamins until seen by surgeon Start Protein shakes over the weekend Discharge Disposition: HOME SELF-CARE
== END 2021-12-18 15:14 | disposition home or self-care (01) | DRG 620 ==
LOC: 2ORMAIN 08:08 → 4SSUR 16:34 → 2SICU 12-15 06:05
PROVIDERS: ADMIT Surgery Plastic and Reconstructive Surgery; ATTEND Surgery Plastic and Reconstructive Surgery
PROC: 0DJ08ZZ Inspection of Upper Intestinal Tract, Via Natural or Artificial Opening Endoscopic (ICD-10-PCS; principal; 2021-12-14 14:25)
PROC: 8E0W4CZ Robotic Assisted Procedure of Trunk Region, Percutaneous Endoscopic Approach (ICD-10-PCS; principal; 2021-12-14 14:25)
PROC: 30233N1 Transfusion of Nonautologous Red Blood Cells into Peripheral Vein, Percutaneous Approach (ICD-10-PCS; principal; 2021-12-14 14:25)
PROC: 0D164ZA Bypass Stomach to Jejunum, Percutaneous Endoscopic Approach (ICD-10-PCS; principal; 2021-12-14 14:25)
PROC: 0DNW4ZZ Release Peritoneum, Percutaneous Endoscopic Approach (ICD-10-PCS; principal; 2021-12-14 14:25)
DX: E66.01 Morbid (severe) obesity due to excess calories (principal); D62 Acute posthemorrhagic anemia; K92.0 Hematemesis; K92.1 Melena; E87.2 Acidosis; Z68.42 Body mass index [BMI] 45.0-49.9, adult; I11.9 Hypertensive heart disease without heart failure; I95.9 Hypotension, unspecified; R16.0 Hepatomegaly, not elsewhere classified; E83.39 Other disorders of phosphorus metabolism; Q05.9 Spina bifida, unspecified; G43.909 Migraine, unspecified, not intractable, without status migrainosus; M16.0 Bilateral primary osteoarthritis of hip; M17.0 Bilateral primary osteoarthritis of knee; E50.9 Vitamin A deficiency, unspecified; E86.9 Volume depletion, unspecified; R07.89 Other chest pain; E86.0 Dehydration; T85.898A Other specified complication of other internal prosthetic devices, implants and grafts, initial encounter; Y73.8 Miscellaneous gastroenterology and urology devices associated with adverse incidents, not elsewhere classified; K66.0 Peritoneal adhesions (postprocedural) (postinfection); R16.1 Splenomegaly, not elsewhere classified; R00.0 Tachycardia, unspecified; E83.42 Hypomagnesemia; Z85.41 Personal history of malignant neoplasm of cervix uteri; Z90.89 Acquired absence of other organs; Z98.84 Bariatric surgery status; Z90.49 Acquired absence of other specified parts of digestive tract; Z98.51 Tubal ligation status; Z90.721 Acquired absence of ovaries, unilateral; Z98.890 Other specified postprocedural states; Z80.8 Family history of malignant neoplasm of other organs or systems; Z83.6 Family history of other diseases of the respiratory system; Z79.899 Other long term (current) drug therapy; Z91.018 Allergy to other foods; Z85.43 Personal history of malignant neoplasm of ovary
CPT/HCPCS: 36410; 71275; 74177; 74240; 76937; 80048; 80051; 80053; 81025; 82310; 82565; 83036; 83605; 83735; 84100; 84484; 84520; 85025; 85027; 85610; 85730; 86850; 86900; 86901; 86920; 87040; 93005; 93306; 93970; 94640

== ENCOUNTER 2021-12-19 23:33 | Emergency (ER) | payer OTHER ==
[2021-12-19 23:51] VITALS: BP 140/94; PULSE 99; RESP 18; TEMP 98.2
--- NOTE | 2021-12-20 00:12 | ED ---
GI Bleed HPI - General Chief complaint: GI Bleed Stated complaint: post op, abd pain Time Seen by Provider: 12/19/21 23:45 Source: patient Mode of arrival: EMS - History of Present Illness Initial comments: This patient is a 31-year-old woman who presents to have evaluation for left upper quadrant abdominal pain, some vomiting with blood and blood in bowel movements. Patient had Marco-en-Y bypass performed on December [address] Davila. She was discharged from the hospital December 18 after postoperative course was complicated by anemia requiring a blood transfusion. She did have some GI bleeding while in the hospital but that is was felt to be related to being on IV heparin are related to concerns of possible pulmonary embolism. She was subsequently felt not to have PE, the heparin was discontinued any GI bleeding stopped. The patient states that over the course of today she has been having left upper quadrant pain and she did have a couple of bowel movements with some bright red blood, as well as a couple of episodes of vomiting with some very blood as well. MD complaint: blood streaked emesis, blood streaked stool -: hour(s) Radiation: none Quality: cramping Consistency: intermittent Improves with: none Worsens with: none Associated Symptoms: abdominal pain - Related Data Home Medications Medication Instructions Recorded Confirmed EPINEPHrine (Auto Inject) [Epipen] 0.3 mg IM ONCE PRN 04/28/20 12/14/21 Erenumab-Aooe [Aimovig 70 mg SQ QMONTHLY 12/10/20 12/14/21 Autoinjector] Previous Rx's Medication Instructions Recorded Acetaminophen Tab [Tylenol] 1,000 mg PO Q6HR PRN #30 tablet 12/18/21 Metoprolol Tartrate 12.5 mg PO BID #60 tab 12/18/21 Omeprazole [PriLOSEC] 40 mg PO DAILY #30 cap 12/18/21 Ondansetron Odt [Zofran Odt] 4 mg PO Q8HR PRN #9 tab 12/18/21 Simethicone 40 mg/0.6 ml Drops 40 mg PO PCHS PRN #30 ml 12/18/21 [Mylicon Drops] bisacodyL [Dulcolax] 5 mg PO DAILY PRN #10 tab 12/18/21 Allergies Allergy/AdvReac Type Severity Reaction Status Date / Time pineapple Allergy Swelling Verified 12/14/21 10:56 Review of Systems ROS Statement: Those systems with pertinent positive or pertinent negative responses have been documented in the HPI. ROS Other: All systems not noted in ROS Statement are negative. Constitutional: Denies: fever Respiratory: Denies: cough, dyspnea Cardiovascular: Denies: chest pain, palpitations Gastrointestinal: Reports: abdominal pain, nausea, vomiting, hematemesis, melena. 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 EGD. Sleeve Gastrectomy 05-04-21 Past Anesthesia/Blood Transfusion Reactions: No Reported Reaction Additional Past Anesthesia/Blood Transfusion Reaction / Comment(s): no hx blood tranfusion Past Psychological History: No Psychological Hx Reported Past Alcohol Use History: Rare - Past Family History Sister(s) Family Medical History: Cancer, Deep Vein Thrombosis (DVT), Pulmonary Embolus Additional Family Medical History / Comment(s): thyroid cancer General Exam General appearance: alert, in no apparent distress Head exam: Present: atraumatic, normocephalic Eye exam: Present: normal appearance. Absent: scleral icterus, conjunctival injection ENT exam: Present: normal oropharynx Neck exam: Present: normal inspection Respiratory exam: Present: normal lung sounds bilaterally. Absent: respiratory distress, wheezes, rales, rhonchi, stridor Cardiovascular Exam: Present: regular rate, normal rhythm, normal heart sounds. Absent: systolic murmur, diastolic murmur, rubs, gallop GI/Abdominal exam: Present: soft. Absent: distended, tenderness, guarding, rebound, rigid, mass, pulsatile mass Extremities exam: Present: normal inspection, normal capillary refill. Absent: pedal edema, calf tenderness Back exam: Present: normal inspection. Absent: CVA tenderness (R), CVA tenderness (L) Neurological exam: Present: alert Skin exam: Present: warm, dry, intact, normal color. Absent: rash Course Vital Signs 12/19/21 23:44 Temperature 98.2 F Pulse Rate 99 Respiratory 18 Rate Blood Pressure 140/94 O2 Sat by Pulse 97 Oximetry Medical Decision Making - Medical Decision Making Patient is 31-year-old woman here to have assessment for abdominal pain and suspected GI bleeding. While the patient was awaiting for results, she informed nursing staff that she wanted to sign herself out and she did so. She states she will return should the symptoms recur or if she is feeling worse in anyway - Lab Data Result diagrams: 12/20/21 00:18 12/20/21 00:18 Lab Results 12/20/21 12/20/21 12/20/21 Range/Units 00:18 00:18 00:18 WBC 7.0 (3.8-10.6) k/uL RBC 3.44 L (3.80-5.40) m/uL Hgb 9.6 L D (11.4-16.0) gm/dL Hct 29.0 L (34.0-46.0) % MCV 84.3 (80.0-100.0) fL MCH 27.9 (25.0-35.0) pg MCHC 33.1 (31.0-37.0) g/dL RDW 16.5 H (11.5-15.5) % Plt Count 311 (150-450) k/uL MPV 8.7 Neutrophils % 65 % Lymphocytes % 23 % Monocytes % 4 % Eosinophils % 7 % Basophils % 1 % Neutrophils # 4.5 (1.3-7.7) k/uL Lymphocytes # 1.6 (1.0-4.8) k/uL Monocytes # 0.3 (0-1.0) k/uL Eosinophils # 0.5 (0-0.7) k/uL Basophils # 0.0 (0-0.2) k/uL Anisocytosis Slight PT 10.4 (9.0-12.0) sec INR 0.9 (<1.2) APTT 23.3 (22.0-30.0) sec Sodium 135 L (137-145) mmol/L Potassium 3.4 L (3.5-5.1) mmol/L Chloride 104 (98-107) mmol/L Carbon Dioxide 22 (22-30) mmol/L Anion Gap 9 mmol/L BUN 6 L (7-17) mg/dL Creatinine 0.55 (0.52-1.04) mg/dL Est GFR (CKD-EPI)AfAm >90 (>60 ml/min/1.73 sqM) Est GFR (CKD-EPI)NonAf >90 (>60 ml/min/1.73 sqM) Glucose 99 (74-99) mg/dL Plasma Lactic Acid Giovanni (0.7-2.0) mmol/L Calcium 8.7 (8.4-10.2) mg/dL Total Bilirubin 0.6 (0.2-1.3) mg/dL AST 26 (14-36) U/L ALT 16 (4-34) U/L Alkaline Phosphatase 53 (38-126) U/L Troponin I (0.000-0.034) ng/mL Total Protein 6.3 (6.3-8.2) g/dL Albumin 3.6 (3.5-5.0) g/dL Blood Type Blood Type Recheck Bld Type Recheck Status Antibody Screen Spec Expiration Date 12/20/21 12/20/21 12/20/21 Range/Units 00:18 00:18 00:18 WBC (3.8-10.6) k/uL RBC (3.80-5.40) m/uL Hgb (11.4-16.0) gm/dL Hct (34.0-46.0) % MCV (80.0-100.0) fL MCH (25.0-35.0) pg MCHC (31.0-37.0) g/dL RDW (11.5-15.5) % Plt Count (150-450) k/uL MPV Neutrophils % % Lymphocytes % % Monocytes % % Eosinophils % % Basophils % % Neutrophils # (1.3-7.7) k/uL Lymphocytes # (1.0-4.8) k/uL Monocytes # (0-1.0) k/uL Eosinophils # (0-0.7) k/uL Basophils # (0-0.2) k/uL Anisocytosis PT (9.0-12.0) sec INR (<1.2) APTT (22.0-30.0) sec Sodium (137-145) mmol/L Potassium (3.5-5.1) mmol/L Chloride (98-107) mmol/L Carbon Dioxide (22-30) mmol/L Anion Gap mmol/L BUN (7-17) mg/dL Creatinine (0.52-1.04) mg/dL Est GFR (CKD-EPI)AfAm (>60 ml/min/1.73 sqM) Est GFR (CKD-EPI)NonAf (>60 ml/min/1.73 sqM) Glucose (74-99) mg/dL Plasma Lactic Acid Giovanni 0.8 (0.7-2.0) mmol/L Calcium (8.4-10.2) mg/dL Total Bilirubin (0.2-1.3) mg/dL AST (14-36) U/L ALT (4-34) U/L Alkaline Phosphatase (38-126) U/L Troponin I <0.012 (0.000-0.034) ng/mL Total Protein (6.3-8.2) g/dL Albumin (3.5-5.0) g/dL Blood Type A Positive Blood Type Recheck A Pos Bld Type Recheck Status No Antibody Screen NEGATIVE Spec Expiration Date 12/23/20219 - EKG Data -: EKG Interpreted by Or EKG shows normal: sinus rhythm, axis (Normal), intervals (Normal), QRS complexes (Normal), ST-T waves (Normal) Rate: normal (Rate 90 bpm) Interpretation: normal EKG Disposition Clinical Impression: Abdominal pain, Gastrointestinal bleeding Disposition: Left Against Medical Advice Condition: Undetermined Is patient prescribed a controlled substance at d/c from ED?: No Referrals: Razia Haile NPC [Primary Care Provider] - 1-2 days
[2021-12-20 00:29] LABS: Anisocytosis Slight; Basophils % (A) 1 %; Eosinophils # (A) 0.5 k/uL (0-0.7); Eosinophils % (A) 7 %; Lymphocytes # (A) 1.6 k/uL (1.0-4.8); Lymphocytes % (A) 23 %; MCH 27.9 pg (25.0-35.0); MCHC 33.1 g/dL (31.0-37.0); MCV 84.3 fL (80.0-100.0); Mean Platelet Volume 8.7; Monocytes # (A) 0.3 k/uL (0-1.0); Monocytes % (A) 4 %; Neutrophils # (A) 4.5 k/uL (1.3-7.7); Neutrophils % (A) 65 %; Platelet Count 311 k/uL (150-450); RBC 3.44 m/uL (3.80-5.40); RDW 16.5 % (11.5-15.5)
[2021-12-20 00:41] LABS: ALT 16 U/L (4-34); AST 26 U/L (14-36); African American GFR (CKD) >90 (>60 ml/min/1.73 sqM); Albumin 3.6 g/dL (3.5-5.0); Alkaline Phosphatase 53 U/L (38-126); Anion Gap 9 mmol/L; Blood Urea Nitrogen 6 mg/dL (7-17); Calcium 8.7 mg/dL (8.4-10.2); Carbon Dioxide 22 mmol/L (22-30); Chloride 104 mmol/L (98-107); Glucose 99 mg/dL (74-99); Non-African American GFR(CKD) >90 (>60 ml/min/1.73 sqM); Potassium 3.4 mmol/L (3.5-5.1); Sodium 135 mmol/L (137-145); Total Bilirubin 0.6 mg/dL (0.2-1.3); Total Protein 6.3 g/dL (6.3-8.2)
[2021-12-20 00:54] LABS: INR 0.9 (<1.2); Partial Thromboplastin Time 23.3 sec (22.0-30.0); Prothrombin Time 10.4 sec (9.0-12.0)
[2021-12-20] MEDS ORDERED: ONDANSETRON 4 MG/2 ML VIAL IVP STA (01:19)
[2021-12-20 01:28] LABS: HGB 9.6 gm/dL (11.4-16.0)
== END 2021-12-20 02:31 | disposition left against medical advice (07) ==
LOC: EC 23:33
DX: R10.12 Left upper quadrant pain (principal); K92.2 Gastrointestinal hemorrhage, unspecified; I10 Essential (primary) hypertension; Z91.018 Allergy to other foods; Z53.29 Procedure and treatment not carried out because of patient's decision for other reasons
CPT/HCPCS: 36415; 93005; 86900; 86901; 80053; 83605; 84484; 85025; 85610; 85730; 86850; 99285; 96374; J2405

== ENCOUNTER → 2022-01-06 | Outpatient (CLI) | payer OTHER ==
[2022-01-06 10:12] VITALS: BP 109/77; PULSE 79; TEMP 98.4; BMI 34.5
--- NOTE | 2022-01-06 11:01 | P.BASOAP ---
Subjective Progress Note Date: 01/06/22 Feels fatigued. No dysphagia. Reports tolerable abdominal pain. No blood in stools. No constipation. Lost good weight. Date January. Protein shakes [employer]life. She is getting 2 down. Enforced increase protein. No infection. Improved dimpling. Get labs. RTW Jan 18. Jan 27 FU advised. Objective - Vital Signs Vital signs: Vital Signs Temp 98.4 F 01/06/22 10:06 Pulse 79 01/06/22 10:06 Resp BP 109/77 01/06/22 10:06 Pulse Ox FiO2 Intake & Output 01/05/22 01/06/22 01/06/22 18:59 06:59 18:59 Weight 100.108 kg Assessment/Plan Plan: Date: 01/06/22 Initial Weight: 117.48 kg Initial BMI: 40.5 Current Weight: 100.108 kg Current BMI: 34.5 Type of Surgery: Total Volume in Band: Previous Volume: Volume Removed: Volume Added: Band Size:
--- NOTE | 2022-01-06 11:05 | P.PN ---
Progress Note - Text Progress Note Date: 01/06/22 To whom it may concern: Razia Lilly is under my surgical care. She may return to remote work Jan 11, 2022 followed by return to work without restrictions, Feb 02, 2022. Regards, Magy Park MD FACS
[2022-01-06 12:57] LABS: INR 1.1 (<1.2); Partial Thromboplastin Time 27.4 sec (22.0-30.0); Prothrombin Time 11.5 sec (9.0-12.0)
[2022-01-06 17:48] LABS: HCT 35.1 % (37.2-46.3); HGB 11.1 g/dL (12.0-15.0); MCH 27.3 pg (27.0-32.0); MCHC 31.6 g/dL (32.0-37.0); MCV 86.2 fL (80.0-97.0); NRBC Per 100 WBC 0 /100 WBCS (0.0-0.0); Platelet Count 239 X 10*3/uL (140-440); RBC 4.07 X 10*6/uL (4.10-5.20); RDW 14.9 % (11.5-14.5); WBC 2.23 X 10*3/uL (4.50-10.00)
[2022-01-06 20:07] LABS: % Iron Saturation 5.85 (12.00-45.00); ALT 23 U/L (8-44); AST 23 U/L (13-35); African American GFR (CKD) 131.1 (60.0-200.0); Albumin 4.3 g/dL (3.8-4.9); Albumin/Globulin Ratio 1.69 (1.60-3.17); Alkaline Phosphatase 65 U/L (41-126); BUN/Creat Ratio 12.22 Ratio (12.00-20.00); Blood Urea Nitrogen 8.8 mg/dL (9.0-27.0); Calcium 9.4 mg/dL (8.7-10.3); Carbon Dioxide 23.2 mmol/L (20.0-27.5); Chloride 102 mmol/L (96-109); Globulin 2.6 g/dL (1.6-3.3); Glucose 91 mg/dL (70-110); Iron 20 ug/dL (50-170); Magnesium 1.9 mg/dL (1.5-2.4); Non-African American GFR(CKD) 113.1 (60.0-200.0); Phosphorus 3.4 mg/dL (2.4-5.1); Potassium 4.1 mmol/L (3.5-5.5); Sodium 138 mmol/L (135-145); Total Iron Binding Capacity 347 ug/dL (228-460); Total Protein 6.9 g/dL (6.2-8.2)
[2022-01-06 20:34] LABS: LDL Cholesterol,Calculated 80.3 mg/dL (0.0-131.0); Prealbumin 15.1 mg/dL (18.0-42.0); VLDL Calculation 11.72 mg/dL (5.00-40.00)
[2022-01-07 12:14] LABS: Zinc, Serum 72 ug/dL (60-130)
== END | disposition home or self-care (01) ==
LOC: BARWHC3 09:53
PROVIDERS: ATTEND Surgery Plastic and Reconstructive Surgery
DX: E66.01 Morbid (severe) obesity due to excess calories (principal); E89.1 Postprocedural hypoinsulinemia; D50.8 Other iron deficiency anemias; D50.9 Iron deficiency anemia, unspecified; K91.2 Postsurgical malabsorption, not elsewhere classified; E44.0 Moderate protein-calorie malnutrition; E44.1 Mild protein-calorie malnutrition; E45 Retarded development following protein-calorie malnutrition; E46 Unspecified protein-calorie malnutrition; E55.9 Vitamin D deficiency, unspecified; K74.1 Hepatic sclerosis; N19 Unspecified kidney failure; T56.894A Toxic effect of other metals, undetermined, initial encounter
CPT/HCPCS: 84255; 84134; 84425; 80061; 80053; 82607; 82728; 82525; 82746; 83540; 83550; 83735; 84100; 84443; 84590; 84630; 85027; 85610; 85730; 82306; 83970; 83036; G0463; 99211

== ENCOUNTER → 2022-01-27 | Outpatient (CLI) | payer OTHER ==
[2022-01-27 16:08] VITALS: BP 137/95; PULSE 69; TEMP 98.6; BMI 33.8
--- NOTE | 2022-01-27 16:38 | P.BASOAP ---
Subjective Progress Note Date: 01/27/22 She is getting three protein shakes daily. She is drinking very little urine. Bladder ultrasound and voiding. She reports oliguria. Multiple labs were off and now corrected. Plan for studies for oliguria. No dysphagia. No reflux. 1 month. Objective - Vital Signs Vital signs: Vital Signs Temp 98.6 F 01/27/22 16:01 Pulse 69 01/27/22 16:01 Resp BP 137/95 01/27/22 16:01 Pulse Ox FiO2 Intake & Output 01/26/22 01/27/22 01/27/22 18:59 06:59 18:59 Weight 97.976 kg Assessment/Plan Plan: Date: 01/27/22 Initial Weight: 117.48 kg Initial BMI: 40.5 Current Weight: 97.976 kg Current BMI: 33.8 Type of Surgery: Total Volume in Band: Previous Volume: Volume Removed: Volume Added: Band Size:
== END | disposition home or self-care (01) ==
LOC: BARWHC3 15:48
PROVIDERS: ATTEND Surgery Plastic and Reconstructive Surgery
DX: E66.01 Morbid (severe) obesity due to excess calories (principal); Z68.41 Body mass index [BMI] 40.0-44.9, adult
CPT/HCPCS: 97803; G0463; 99211

== ENCOUNTER → 2022-02-16 | Outpatient (CLI) | payer OTHER ==
--- NOTE | 2022-02-16 09:40 | US ---
EXAMINATION TYPE: US kidneys/renal and bladder DATE OF EXAM: 02/16/2022 COMPARISON: CT, US Abd Limited CLINICAL HISTORY: R34 ANURIA AND OLIGURIA. Oliguria. EXAM MEASUREMENTS: Right Kidney: 12.4 x 6.5 x 4.5 cm Left Kidney: 12.0 x 7.1 x 5.0 cm Right Kidney: Appears minimally enlarged. No hydronephrosis or masses seen. Heterogeneous appearance. Left Kidney: No hydronephrosis or masses seen Bladder: Appears anechoic Bilateral Jets seen: Yes IMPRESSION: No evidence of obstructive uropathy. No masses identified.
== END | disposition home or self-care (01) ==
LOC: RADUSWWP 07:01
PROVIDERS: ATTEND Surgery Plastic and Reconstructive Surgery
DX: R34 Anuria and oliguria (principal)
CPT/HCPCS: 76770

== ENCOUNTER → 2022-02-18 | Day surgery (SDC) | payer OTHER ==
[2022-02-17 13:36] VITALS: BMI 32.3
[~2022-02-18] MED LIST changes: -CHLORHEXIDINE GLUCONATE 15 ML CUP MUCOUS MEM PRN; -DEXAMETHASONE SOD PHOSPHATE 4 MG/ML 1 ML VIAL IV ONE; -LIDOCAINE 1% (10MG/ML) FOR IV START INTRADERMA PRN; -METOCLOPRAMIDE 5 MG/ML 2 ML VIAL IVP PRN; -ONDANSETRON 4 MG/2 ML VIAL IVP ONE; -PANTOPRAZOLE 40 MG/10 ML VIAL IVP PRN; -SCOPOLAMINE 1 MG/72 HR PATCH TRANSDERM ONE; +SODIUM CHLORIDE 0.9% 1,000 ML IV SCH; +SODIUM CHLORIDE 0.9% 500 ML 500 ML IV ONE
[2022-02-18 09:33] VITALS: BP 117/89; PULSE 73; RESP 16; TEMP 98.7
--- NOTE | 2022-02-22 14:30 | P.EPPROC ---
- EP Procedure Note Electrophysiology Procedure Note: Diagnosis Recurrent syncope Twelve-lead EKG shows sinus rhythm normal SC narrow QRS normal ST segments Normal QT interval no epsilon waves no delta waves Tilt table test per protocol Baseline heart rate 67 beats a minute, Baseline blood pressure 118/80 mmHg Patient was tilted upright at an angle of 70 per protocol No change in heart rate and blood pressure No syncopal he noted She was laid supine at the end of the procedure Impression Normal twelve-lead EKG Normal heart rate and blood pressure response to upright tilting
== END ==
LOC: CATHEP 09:14
PROVIDERS: ATTEND Internal Medicine Clinical Cardiac Electrophysiology
DX: R55 Syncope and collapse (principal); I10 Essential (primary) hypertension; Z20.822 Contact with and (suspected) exposure to COVID-19; Z82.49 Family history of ischemic heart disease and other diseases of the circulatory system; Z79.899 Other long term (current) drug therapy
CPT/HCPCS: 87635; 93660

== ENCOUNTER → 2022-03-11 | Outpatient (CLI) | payer OTHER ==
[2022-03-11 15:30] LABS: Partial Thromboplastin Time 25.2 sec (22.0-30.0); Prothrombin Time 10.7 sec (9.0-12.0)
[2022-03-12 05:03] LABS: % Iron Saturation 13.15 (12.00-45.00); ALT 20 U/L (8-44); AST 17 U/L (13-35); African American GFR (CKD) 137.8 (60.0-200.0); Albumin 4.7 g/dL (3.8-4.9); Albumin/Globulin Ratio 1.68 (1.60-3.17); Alkaline Phosphatase 73 U/L (41-126); BUN/Creat Ratio 17.58 Ratio (12.00-20.00); Blood Urea Nitrogen 11.5 mg/dL (9.0-27.0); Calcium 9.6 mg/dL (8.7-10.3); Carbon Dioxide 22.1 mmol/L (20.0-27.5); Chloride 105 mmol/L (96-109); Globulin 2.8 g/dL (1.6-3.3); Glucose 100 mg/dL (70-110); Iron 48 ug/dL (50-170); Magnesium 2.2 mg/dL (1.5-2.4); Non-African American GFR(CKD) 118.9 (60.0-200.0); Potassium 4.4 mmol/L (3.5-5.5); Sodium 140 mmol/L (135-145); Total Iron Binding Capacity 363 ug/dL (228-460); Total Protein 7.4 g/dL (6.2-8.2)
[2022-03-12 05:04] LABS: Chol/HDL Ratio 3.46 Ratio; LDL Cholesterol,Calculated 110.4 mg/dL (0.0-131.0); Prealbumin 21.5 mg/dL (18.0-42.0); VLDL Calculation 18.98 mg/dL (5.00-40.00)
[2022-03-12 05:05] LABS: HCT 42.7 % (37.2-46.3); HGB 13.5 g/dL (12.0-15.0); MCH 26.6 pg (27.0-32.0); MCHC 31.6 g/dL (32.0-37.0); MCV 84.2 fL (80.0-97.0); NRBC Per 100 WBC 0 /100 WBCS (0.0-0.0); Platelet Count 333 X 10*3/uL (140-440); RBC 5.07 X 10*6/uL (4.10-5.20); RDW 14.6 % (11.5-14.5); WBC 7.99 X 10*3/uL (4.50-10.00)
[2022-03-12 12:23] LABS: Zinc, Serum 71 ug/dL (60-130)
== END | disposition home or self-care (01) ==
LOC: LABWHC1 14:39
PROVIDERS: ATTEND Surgery Plastic and Reconstructive Surgery
DX: E89.1 Postprocedural hypoinsulinemia (principal); E66.01 Morbid (severe) obesity due to excess calories; D50.9 Iron deficiency anemia, unspecified; E44.0 Moderate protein-calorie malnutrition; E46 Unspecified protein-calorie malnutrition; E55.9 Vitamin D deficiency, unspecified; K74.1 Hepatic sclerosis; N19 Unspecified kidney failure; T56.894A Toxic effect of other metals, undetermined, initial encounter; K50.919 Crohn's disease, unspecified, with unspecified complications
CPT/HCPCS: 36415; 80053; 80061; 82306; 82525; 82607; 82728; 82746; 83036; 83540; 83550; 83735; 83970; 84100; 84134; 84255; 84425; 84443; 84590; 84630; 85027; 85610; 85730

== ENCOUNTER → 2022-06-24 | Outpatient (CLI) | payer OTHER ==
[2022-06-24 16:57] LABS: Partial Thromboplastin Time 24.9 sec (22.0-30.0); Prothrombin Time 10.5 sec (9.0-12.0)
[2022-06-24 22:47] LABS: HCT 37.4 % (37.2-46.3); HGB 12.1 g/dL (12.0-15.0); MCH 28.3 pg (27.0-32.0); MCHC 32.4 g/dL (32.0-37.0); MCV 87.6 fL (80.0-97.0); Mean Platelet Volume 11.3 fL (9.5-12.2); NRBC Per 100 WBC 0 /100 WBCS (0.0-0.0); Platelet Count 337 X 10*3/uL (140-440); RBC 4.27 X 10*6/uL (4.10-5.20); RDW 13.6 % (11.5-14.5); WBC 7.01 X 10*3/uL (4.50-10.00)
[2022-06-24 23:37] LABS: % Iron Saturation 18.74 (12.00-45.00); ALT 16 U/L (8-44); AST 18 U/L (13-35); African American GFR (CKD) 110.5 (60.0-200.0); Albumin 4.4 g/dL (3.8-4.9); Albumin/Globulin Ratio 1.63 (1.60-3.17); Alkaline Phosphatase 70 U/L (41-126); BUN/Creat Ratio 11.83 Ratio (12.00-20.00); Blood Urea Nitrogen 9.7 mg/dL (9.0-27.0); Calcium 9.2 mg/dL (8.7-10.3); Carbon Dioxide 23.6 mmol/L (20.0-27.5); Chloride 104 mmol/L (96-109); Ferritin 69.8 ng/mL (10.0-291.0); Globulin 2.7 g/dL (1.6-3.3); Glucose 165 mg/dL (70-110); Iron 64 ug/dL (50-170); Magnesium 1.9 mg/dL (1.5-2.4); Non-African American GFR(CKD) 95.4 (60.0-200.0); Phosphorus 3.9 mg/dL (2.4-5.1); Potassium 3.9 mmol/L (3.5-5.5); Sodium 141 mmol/L (135-145); Total Iron Binding Capacity 339 ug/dL (228-460); Total Protein 7.1 g/dL (6.2-8.2)
[2022-06-24 23:53] LABS: Chol/HDL Ratio 3.32 Ratio; LDL Cholesterol,Calculated 110.3 mg/dL (0.0-131.0); VLDL Calculation 15.52 mg/dL (5.00-40.00)
[2022-06-24 23:54] LABS: Prealbumin 19.7 mg/dL (18.0-42.0)
== END | disposition home or self-care (01) ==
LOC: LABWHC1 15:31
PROVIDERS: ATTEND Surgery Plastic and Reconstructive Surgery
DX: E89.1 Postprocedural hypoinsulinemia (principal); E66.01 Morbid (severe) obesity due to excess calories; D50.8 Other iron deficiency anemias; K91.2 Postsurgical malabsorption, not elsewhere classified; E44.0 Moderate protein-calorie malnutrition; E45 Retarded development following protein-calorie malnutrition; E55.9 Vitamin D deficiency, unspecified; K74.1 Hepatic sclerosis; N19 Unspecified kidney failure; T56.894A Toxic effect of other metals, undetermined, initial encounter; K50.90 Crohn's disease, unspecified, without complications
CPT/HCPCS: 36415; 80053; 80061; 82306; 82525; 82607; 82728; 82746; 83036; 83540; 83550; 83735; 83970; 84100; 84134; 84255; 84425; 84443; 84590; 84630; 85027; 85610; 85730

== ENCOUNTER → 2023-01-03 | Outpatient (CLI) | payer OTHER ==
[2023-01-03 10:48] LABS: INR 0.9 (<1.2); Partial Thromboplastin Time 23.5 sec (22.0-30.0); Prothrombin Time 10.1 sec (9.0-12.0)
[2023-01-03 15:33] LABS: HGB 12.7 d/dL (12.0-15.0); MCH 28.7 pg (27.0-32.0); MCHC 32.6 d/dL (32.0-37.0); Mean Platelet Volume 12.3 FL (9.5-12.2); NRBC Per 100 WBC 0 X 10*3/uL (0.00-0.01); Platelet Count 328 X 10*3/uL (140-440); RBC 4.43 X 10*6/uL (4.10-5.20); RDW 13.6 % (11.5-14.5); WBC 5.73 X 10*3/uL (4.50-10.00)
[2023-01-03 16:02] LABS: Prealbumin 21.4 mg/dL (18.0-42.0)
[2023-01-03 16:24] LABS: % Iron Saturation 19.07 (12.00-45.00); ALT 15 U/L (8-44); AST 16 U/L (13-35); Albumin 4.9 d/dL (3.8-4.9); Albumin/Globulin Ratio 1.96 Ratio (1.60-3.17); Alkaline Phosphatase 65 U/L (41-126); BUN/Creat Ratio 12.29 Ratio (12.00-20.00); Blood Urea Nitrogen 8.6 mg/dL (9.0-27.0); Calcium 9.7 mg/dL (8.7-10.3); Carbon Dioxide 24.5 mmol/L (21.6-31.8); Chloride 105 mmol/L (96-109); Ferritin 58.2 ng/mL (10.0-291.0); Globulin 2.5 d/dL (1.6-3.3); Glucose 80 mg/dL (70-110); Iron 70 UG/DL (50-170); LDL Cholesterol,Calculated 89.4 mg/dL (0.0-131.0); Phosphorus 3.7 mg/dL (2.4-5.1); Potassium 4.2 mmol/L (3.5-5.5); Sodium 143 mmol/L (135-145); Total Bilirubin 0.6 mg/dL (0.3-1.2); Total Iron Binding Capacity 367 UG/DL (228-460); Total Protein 7.4 d/dL (6.2-8.2); VLDL Calculation 9.04 mg/dL (5.00-40.00)
[2023-01-04 11:32] LABS: Zinc, Serum 77 ug/dL (60-130)
[2023-01-05 04:21] LABS: Vitamin A 37 ug/dL (38-106)
== END | disposition home or self-care (01) ==
LOC: LABWHC1 10:02
PROVIDERS: ATTEND Surgery Plastic and Reconstructive Surgery
DX: E66.01 Morbid (severe) obesity due to excess calories (principal); E89.1 Postprocedural hypoinsulinemia; D50.8 Other iron deficiency anemias; K91.2 Postsurgical malabsorption, not elsewhere classified; E44.0 Moderate protein-calorie malnutrition; E44.1 Mild protein-calorie malnutrition; E45 Retarded development following protein-calorie malnutrition; E46 Unspecified protein-calorie malnutrition; E55.9 Vitamin D deficiency, unspecified; K74.1 Hepatic sclerosis; N19 Unspecified kidney failure; T56.894A Toxic effect of other metals, undetermined, initial encounter; K50.90 Crohn's disease, unspecified, without complications
CPT/HCPCS: 36415; 80053; 80061; 82306; 82525; 82607; 82728; 82746; 83036; 83540; 83550; 83735; 83970; 84100; 84134; 84255; 84425; 84443; 84590; 84630; 85027; 85610; 85730

== ENCOUNTER → 2023-03-16 | Outpatient (CLI) | payer OTHER ==
[2023-03-16 15:24] VITALS: BP 144/81; PULSE 98; TEMP 98.5; BMI 27.1
--- NOTE | 2023-03-16 15:56 | P.BASOAP ---
Subjective Progress Note Date: 03/16/23 She has troubles with grooming. She has lower back pain. She is not looking to have more kids. She has grade 2+ panniculosis. Weight loss over 100 pounds. She had moderate panniculitis. Recommend skin removal. Recommend physician assistant and nystatin powder. She has occassional back pain. Grade 3 panniculus Risk of pots syndrome reviewed. Recommend assessment of labs. Objective - Vital Signs Vital signs: Vital Signs Temp 98.5 F 03/16/23 15:14 Pulse 98 03/16/23 15:14 Resp BP 144/81 03/16/23 15:14 Pulse Ox FiO2 Intake & Output 03/15/23 03/16/23 03/16/23 18:59 06:59 18:59 Weight 78.471 kg Assessment/Plan Plan: Date: 03/16/23 Initial Weight: 117.48 kg Initial BMI: 40.5 Current Weight: 78.471 kg Current BMI: 27.1 Type of Surgery: Total Volume in Band: Previous Volume: Volume Removed: Volume Added: Band Size:
[2023-03-16 17:59] LABS: Partial Thromboplastin Time 25.5 sec (22.0-30.0); Prothrombin Time 10.6 sec (10.0-12.5)
[2023-03-16 20:45] LABS: HCT 38.4 % (37.2-46.3); HGB 13.2 d/dL (12.0-15.0); MCH 29.1 pg (27.0-32.0); MCHC 34.4 d/dL (32.0-37.0); MCV 84.6 FL (80.0-97.0); Mean Platelet Volume 12.3 FL (9.5-12.2); NRBC Per 100 WBC 0 X 10*3/uL (0.00-0.01); Platelet Count 324 X 10*3/uL (140-440); RBC 4.54 X 10*6/uL (4.10-5.20); WBC 7.46 X 10*3/uL (4.50-10.00)
[2023-03-17 05:50] LABS: % Iron Saturation 18.38 (12.00-45.00); ALT 13 U/L (8-44); AST 19 U/L (13-35); Albumin 4.7 d/dL (3.8-4.9); Albumin/Globulin Ratio 1.81 Ratio (1.60-3.17); Alkaline Phosphatase 61 U/L (41-126); BUN/Creat Ratio 10.43 Ratio (12.00-20.00); Blood Urea Nitrogen 7.3 mg/dL (9.0-27.0); Calcium 9.6 mg/dL (8.7-10.3); Carbon Dioxide 21.1 mmol/L (21.6-31.8); Chloride 106 mmol/L (96-109); Ferritin 52.4 ng/mL (10.0-291.0); Globulin 2.6 d/dL (1.6-3.3); Glucose 84 mg/dL (70-110); Iron 68 UG/DL (50-170); LDL Cholesterol,Calculated 100.1 mg/dL (0.0-131.0); Magnesium 2.1 mg/dL (1.5-2.4); Potassium 4.1 mmol/L (3.5-5.5); Sodium 141 mmol/L (135-145); Total Bilirubin 0.6 mg/dL (0.3-1.2); Total Iron Binding Capacity 370 UG/DL (228-460); Total Protein 7.3 d/dL (6.2-8.2); VLDL Calculation 15.16 mg/dL (5.00-40.00)
[2023-03-17 05:51] LABS: Prealbumin 20.6 mg/dL (18.0-42.0)
[2023-03-17 15:30] LABS: Zinc, Serum 73 ug/dL (60-130)
[2023-03-18 06:11] LABS: Vitamin A 32 ug/dL (38-106)
[2023-03-18 06:42] LABS: Vit B1(Thiamine) 42 ug/L (38-122)
[2023-03-24 08:03] LABS: Selenium 150 mcg/L (63-160)
== END ==
LOC: BARWHC3 14:43
PROVIDERS: ATTEND Surgery Plastic and Reconstructive Surgery
DX: E66.01 Morbid (severe) obesity due to excess calories (principal); K90.89 Other intestinal malabsorption; D50.8 Other iron deficiency anemias; K74.1 Hepatic sclerosis; E55.9 Vitamin D deficiency, unspecified; T56.894A Toxic effect of other metals, undetermined, initial encounter; K50.90 Crohn's disease, unspecified, without complications; N19 Unspecified kidney failure; Z91.018 Allergy to other foods; Z68.27 Body mass index [BMI] 27.0-27.9, adult
CPT/HCPCS: 84255; 84134; 84425; 80061; 80053; 82607; 82728; 82525; 82746; 83540; 83550; 83735; 84100; 84443; 84590; 84630; 85027; 85610; 85730; 82306; 83970; 83036; G0463; 99211

== ENCOUNTER → 2023-05-05 | Outpatient (CLI) | payer OTHER ==
[2023-05-05 08:12] VITALS: BP 155/106; PULSE 55
[2023-05-05 08:13] VITALS: RESP 15; TEMP 98.4
--- NOTE | 2023-05-05 15:31 | P.PAINPG ---
PQRS Measure Charge Sheet Comment: HISTORY OF PRESENT ILLNESS: A 33 yr old female as a referral from Dr Jacobs presents today w severe and chronic head and neck pain secondary to occipital neuralgia and cervicogenic headache for evaluation. Pt states pain level is provoked at 6/10 in intensity, constant, localized in the base of the cervical spine, predominantly axial, throbbing in character w occasional shooting pain towards the top of head. Pain is provoked by movement after sedentary for 1 hr. Pain is alleviated by PT x 6 wks in Nov 2022, massage therapy semi monthly w last visit 1 wk ago, chiropractic treatments semi monthly x 2 mo w last visit in Mar 2023, heat, medications, repositioning and rest. PMH: OA, HTN PSH: Gastrectomy (2020), Cervical CA, Adenoidectomy, Appendectomy, C Section x4, Cholecystectomy, Tonsillectomy, Tubal Ligation, EGD SH: No tobacco use, Rare ETOH use, No illicit drug use FH: Sis- DVT, PE, Thyroid CA All: See list Meds: See list REVIEW OF ORGAN SYSTEMS: CONSTITUTIONAL: No fevers or chills. No recent weight loss. NEUROLOGICAL: + numbness and tingling along the distal extremities. No seizure disorders or headaches. MUSCULOSKELETAL: + pain PSYCHIATRIC: Denies current depression or suicidal thoughts. Physical Examinations : Constitutional : Cooperative , not in acute distress . Neurologic : Cranial nerve II to XII intact. No focal neurological deficits. Psychiatric : alert & oriented x 3. Matching mood & appropriate affect. Judgment & insight intact. Musculoskeletal : Cervical Spine +BL NITIN TTP Motor strength in the deltoid and biceps: Normal right side. Normal Left side Motor strength biceps and the wrist extensors: Normal right side . Normal left side Motor strength in the triceps muscle: Normal right side. Normal left side Deep tendon reflexes: Normal at the biceps. Normal at Brachioradialis. Normal at triceps Vertebral body tenderness to deep palpation over Cervical facet loading test: positive bilaterally Spurling test: positive bilaterally Neck distraction test: positive bilaterally Jocelynn sign: positive bilaterally Lumbar spine Motor strength lower extremities ,thigh and legs 5/5 Right side , 5/5 Left side Deep tendon reflexes : Normal Knee Jerk. Normal Ankle Jerk Vertebral body tenderness over Lund Test positive Lumbar facet Loading Test: positive Right / positive Left Range of motion of the lumbar spine Flexion 30 degrees, extension 10 degrees Straight Leg Raise test: Left/ Right positive at degree Remy test: positive right / positive left. Severe tenderness over the Sacroiliac j oint on the Right / Left sides Gaenslen test: positive bilaterally Seated flexion test: positive bilaterally. Sacral spine : Severe tenderness over the Sacroiliac joint: right side / left side Range of motion: Flexion of the lumbar spine <60 degrees Range of motion: Extension of the lumbar spine <20 degrees Gaenslen's Test positive Remy test: positive right side / left side Thigh Thrust Test Sacral Thrust Test Imaging: CT noncontrast of the head from 10/02/21 reviewed Assessment/ Plan : Occipital Neuralgia, Cervicogenic MATHIS Recommendation of BL NITIN injections. May need a series of injections for optimal pain relief. Risks, benefits of procedure discussed and patient verbalized understanding. Admits to anti- coagulant use or medical history of diabetes. Protocol for discontinuation/ continuation of medications jorge procedure discussed. Minimal anesthesia provided, if clinically indicated, consisting of Versed and Fentanyl. All questions answered. I have spent greater than 30 minutes on patient care today. Dr Elena was available by phone for the evaluation of this patient. The time was used to review the medical records including relevant urine studies and Prescription history (MAPs), review of the available imaging, evaluation and examination of the patient, coordination of care with the medical staff and if applicable referring physicians, as well as creation of the medical record Home Medications: Ambulatory Orders EPINEPHrine (Auto Inject) [Epipen] 0.3 mg IM ONCE PRN 04/28/20 Erenumab-Aooe [Aimovig Autoinjector] 140 mg SQ QMONTHLY 12/10/20 Calcium Citrate 250 mg PO DAILY 03/10/22 Ergocalciferol [Vitamin D2 (1250 Mcg = 95774 Iu)] 50,000 unit PO WEEKLY 03/10/22 Multivitamins, Thera [Multivitamin (formulary)] 1 tab PO DAILY 03/10/22 Vitamin A 2,400 mcg PO DAILY 03/10/22 Nystatin 100,000 Unit/gm Powd [Mycostatin Powder] 1 applic TOPICAL BID #60 gm 03/16/23 Controlled Substance Measures - Controlled Substance Measures Is patient prescribed a controlled substance at discharge?: No
== END ==
LOC: PNWHC3 07:34
PROVIDERS: ATTEND Specialist
DX: M54.81 Occipital neuralgia (principal); G43.719 Chronic migraine without aura, intractable, without status migrainosus; G44.86 Cervicogenic headache; Z91.018 Allergy to other foods
CPT/HCPCS: 99211

== ENCOUNTER 2023-05-26 06:15 | Day surgery (SDC) | payer OTHER ==
[2023-05-26] MEDS ORDERED: LACTATED RINGERS 1,000 ML IV SCH (06:26)
[2023-05-26 06:53] VITALS: RESP 16; TEMP 97.3
[2023-05-26] MEDS ORDERED: ROPIVACAINE 5MG/ML 20ML VIAL ONE (07:04)
[2023-05-26] MEDS ORDERED: methylPREDNISolone ACETATE 80 MG/ML 1 ML VIAL ONE (07:04)
--- NOTE | 2023-05-26 07:11 | P.PCN ---
Date of Procedure: 05/26/23 Procedure(s) Performed: Preoperative diagnoses= 1- Greater occipital neuralgia. 2-cervicogenic headache Postoperative diagnoses= 1-greater occipital neuralgia. 2-cervicogenic headache Procedure= Bilateral Greater occipital nerve block Anesthesia= none . Estimated blood loss=minimal. Procedure indication= the patient had a history of severe chronic neck pain ,and headache, diagnosed with occipital neuralgia exam was positive for severe tenderness over the occipital nerve bilaterally, she will be a good candidate occipital nerve block, patient failed conservative management Procedure description= the patient was seen and identified in the preoperative holding area, risks and benefits and alternative of the procedure and possible complications discussed with the patient, and he agreed with the preceding, patient signed the consent, and vital signs were monitored and were stable thr oughout the procedure, patient was placed in the sitting position or table and the neck area was prepped and draped with a sterile fashion, vital signs were closely monitored during the procedure, 25-gauge needle advanced 1 inch lateral to the occipital protuberance on the right side, at the location of the right occipital nerve , then after negative aspiration for heme and CSF and there was no paresthesia during the injection, 6 ml of Robivacaine 0.5% and 40 mg of Depo-Medrol injected after negative aspiration, the needle removed, and the entire same procedure was repeated for the left Greater occipital nerve. Patient tolerated the procedure well without any complication, The patient returned to supine position after the back was cleaned and a Band- Aid applied, the patient transported to recovery room in stable condition and he was monitored for 30 minutes before he was discharged home and then patient was reexamined before going home and patient was discharged in stable condition and patient will follow up with the pain clinic in a few weeks.
[2023-05-26 07:41] VITALS: BP 135/75; PULSE 77
== END 2023-05-26 07:34 | disposition home or self-care (01) ==
LOC: ORPAIN 06:15
PROVIDERS: ATTEND Specialist
DX: M54.81 Occipital neuralgia (principal); G44.86 Cervicogenic headache; Z91.018 Allergy to other foods
CPT/HCPCS: 81025; 64405; J1040; J2795

== ENCOUNTER → 2023-06-08 | Outpatient (CLI) | payer OTHER ==
[2023-06-08 17:18] VITALS: BP 116/82; PULSE 112; TEMP 98.1; BMI 24.3
--- NOTE | 2023-06-08 17:29 | P.BASOAP ---
Subjective Progress Note Date: 06/08/23 DATE OF SERVICE: 06/08/23 CHIEF COMPLAINT: Status post sleeve gastrectomy HISTORY OF PRESENT ILLNESS: Razia Lilly is a 33-year-old female status post sleeve gastrectomy, 05/04/21. She is status post conversion from sleeve to gastric bypass, 12/14/2021. She is over one year out. She has epigastric pain and tenderness. She has elevated heart rate. She is tolerating eating. She denies dysphagia. She denies burning. She has bowel movements. At height of 5 feet 7 inches, her ideal body weight is 158 pounds. Her highest weight is 300 pounds with body mass index 47.1. She comes in 155 pounds from 209 pounds, 1 year ago. She has lost 54 pounds in 1 year. Her body mass index is 24.3. Lifetime weight loss of 145 pounds. Percent lifetime weight loss of 102 %. PAST MEDICAL HISTORY: 1. Morbid obesity due to excess calories 2. Body mass index of 47.1, initial 3. Hypertensive heart disease. 4. Migraines 5. Spina Bifida 6. Osteoarthritis of the hips 7. Osteoarthritis of the knees. PAST SURGICAL HISTORY: 1. x 4 2. Adenoidectomy 3. Tonsillectomy 4. Jaw surgery 5. Tubal ligation 6. Status post sleeve gastrectomy 7. Status post gastric bypass HOME MEDICATIONS: Home Medications Medication Instructions Recorded Confirmed EPINEPHrine (Auto Inject) [Epipen] 0.3 mg IM ONCE PRN 04/28/20 06/16/23 Erenumab-Aooe [Aimovig 140 mg SQ QMONTHLY 12/10/20 06/16/23 Autoinjector] Calcium Citrate 250 mg PO DAILY 03/10/22 06/16/23 Ergocalciferol [Vitamin D2 (1250 50,000 unit PO WEEKLY 03/10/22 06/16/23 Mcg = 13355 Iu)] Multivitamins, Thera [Multivitamin 1 tab PO DAILY 03/10/22 06/16/23 (formulary)] Vitamin A 2,400 mcg PO DAILY 03/10/22 06/16/23 Previous Rx's Medication Instructions Recorded Nystatin 100,000 Unit/gm Powd 1 applic TOPICAL BID #60 gm 03/16/23 [Mycostatin Powder] ALLERGIES: Allergies Allergy/AdvReac Type Severity Reaction Status Date / Time pineapple Allergy Swelling Verified 06/16/23 11:28 SOCIAL HISTORY: No past tobacco use. FAMILY HISTORY: No family history of ulcerative colitis disease or Crohn's disease. Family history of morbid obesity. No lupus in the family. No reports of stomach or esophageal cancer. REVIEW OF ORGAN SYSTEMS: CONSTITUTIONAL: At height of 5 feet 7 inches, her ideal body weight is 140 pounds. Her highest weight is 300 pounds with body mass index 47.1 She comes in 258 pounds. Her body mass index is 40.6. She is 100 pounds overweight. HEENT: Denies any active troubles with vision or hearing. ENDOCRINE: Denies diabetes. No hypothyroidism. CARDIOVASCULAR: Has hypertensive heart disease. RESPIRATORY: Denies current chronic obstructive pulmonary disease. GASTROINTESTINAL: Denies any bright red blood per rectum. No diarrhea. No constipation. Has gastroesophageal reflux disease. GENITOURINARY: Denies bladder urgency. No recent blood in urine MUSCULOSKELETAL: Has lower back pain and joint pain. Has osteoarthritis of the knees. NEURO: Has headaches and migraines. No seizure disorders. PSYCH: Has depression. No suicidal ideation. RHEUMATOLOGIC: No lupus. No rheumatoid arthritis. HEMATOLOGIC: Denies any abnormal bleeding or bruising. SKIN: No rash. No skin cancer. PHYSICAL EXAM: VITAL SIGNS: Height 5 foot 7 inches, weight 155 pounds. BMI 24.3 Vital Signs Temp 98.1 F 06/08/23 17:04 Pulse 112 H 06/08/23 17:04 Resp BP 116/82 06/08/23 17:04 Pulse Ox FiO2 GENERAL: Well-developed in no acute distress. HEENT: No scleral icterus. Extraocular movements grossly intact. Hears conversational speech. No nasal drainage. NECK: Supple without lymphadenopathy. CHEST: Nonlabored respirations with equal bilateral excursions. CARDIOVASCULAR: 2+ radial pulses. Tachycardic ABDOMEN: Diastasis recti. Tender epigastrium. MUSCULOSKELETAL: No clubbing, cyanosis. NEURO: No focal or lateralizing signs. Cranial nerves 2 through 12 grossly within normal limits. PSYCH: Appropriate affect. Alert and oriented to person, place and time. SKIN: Good skin turgor. Well perfused. ASSESSMENT: 1. Epigastric tenderness 2. Morbid obesity due to excess calories, body mass index of 47.1, initial to 24.3 3. Hypertensive heart disease. 4. Migraines 5. Spina Bifida 6. Osteoarthritis of the hips 7. Osteoarthritis of the knees. 8. Vitamin D deficiency 9. Status post sleeve gastrectomy 10. Vitamin A deficiency 11. Complications from sleeve gastrectomy 12. Status post sleeve to gastric bypass. PLAN: 1. Recommend upper endoscopy due to epigastric abdominal pain and history of conversion from Sleeve gastrectomy to gastric bypass. 2. Recommend bariatric labs 3. She is elevated risk for complications Objective - Vital Signs Vital signs: Vital Signs Temp 98.1 F 06/08/23 17:04 Pulse 112 H 06/08/23 17:04 Resp BP 116/82 06/08/23 17:04 Pulse Ox FiO2 Intake & Output 06/07/23 06/08/23 06/08/23 18:59 06:59 18:59 Weight 70.307 kg Assessment/Plan Plan: Date: 06/08/23 Initial Weight: 117.48 kg Initial BMI: 40.5 Current Weight: 70.307 kg Current BMI: 24.3 Type of Surgery: Total Volume in Band: Previous Volume: Volume Removed: Volume Added: Band Size:
== END ==
LOC: BARWHC3 16:40
PROVIDERS: ATTEND Surgery Plastic and Reconstructive Surgery
DX: E66.01 Morbid (severe) obesity due to excess calories (principal); R10.816 Epigastric abdominal tenderness; I11.9 Hypertensive heart disease without heart failure; G43.909 Migraine, unspecified, not intractable, without status migrainosus; M16.0 Bilateral primary osteoarthritis of hip; M17.0 Bilateral primary osteoarthritis of knee; Q05.9 Spina bifida, unspecified; E55.9 Vitamin D deficiency, unspecified; K95.09 Other complications of gastric band procedure; E50.9 Vitamin A deficiency, unspecified; Z98.84 Bariatric surgery status; Z68.24 Body mass index [BMI] 24.0-24.9, adult; Z91.018 Allergy to other foods; Z79.899 Other long term (current) drug therapy
CPT/HCPCS: 99211

== ENCOUNTER → 2023-06-16 | Outpatient (CLI) | payer OTHER ==
[2023-06-16 12:38] VITALS: BP 105/73; PULSE 101; RESP 16
--- NOTE | 2023-06-16 21:58 | P.PN ---
Subjective Progress Note Date: 06/16/23 This is a follow-up visit for this 33 years old female with a history of chronic severe headache,she is diagnosed with occipital neuralgia and cervicogenic headache, recently we have done bilateral occipital nerve block, she reports she had zero benefit from the occipital nerve bolock , she continued to have severe headache, she developed severe numbness and tingling sensation in the left facial area, and some numbness tingling in the left upper extremity, the symptoms developed after the block and lasted for 12 hours, patient reported that the headache is constant associated with neck pain which is increased with any neck movement, usually hyperextension of the neck and lateral movement of the cervical spine, she denies any fever or night sweats she denies any motor or sensory deficit, she tried multiple medications, including medications specific for migraine headache, and for headache without any benefit (was prescribed by Dr. Jacobs ) Objective - Vital Signs Vital signs: Vital Signs Temp Pulse 101 H 06/16/23 11:34 Resp 16 06/16/23 11:34 BP 105/73 06/16/23 11:34 Pulse Ox 98 06/16/23 11:34 FiO2 Intake & Output 06/16/23 06/16/23 06/17/23 06:59 18:59 06:59 Weight 68.039 kg - Exam Physical Examinations : -Constitutiona : Cooperative , not in acute distress . -HEENT : nech : supple , no Lymphadenopathy , normal thyroid size . : eyes : no ptosis , no icterus, no photophobia . - neurologic : Cranial nerve II to XII intact , no focal neurological deffecit . -psychatric : alert , oriented X 3 , appropriate affect , intact judgment and insight . -Lymphatic : no Lymphadenopathy . - musculoskeltal : Cervical Spine motor stregnth in the deltoid and biceps, normal right side , normal Left side motor stregnth biceps and the wrist extensors normal right side ,normal left side . motor stregnth in the triceps muscle . normal Right side , normal Left side Normal sensation in the upper extremity bilaterally cervical facet loading test: Positive Bilaterally Tenderness over the occipital nerve bilaterally Lumber spine moter stegnth lower extremities ,thigh and legs 5/5 Right side , 5/5 Left side Assessment and Plan Plan: Assessment and plan=1-occipital neuralgia. 2-cervicogenic headache. 3-cervical spondylosis with cervical facet arthropathy ( clinical diagnosis ) Patient had no benefit from occipital nerve block done previously. We will order MRI of the cervical spine to evaluate cervical etiology of the headache. We will consider doing diagnostic medial branch block cervical area C2 , C3 ,C4 , to target the cervicogenic component to the headache If she has positive result would consider doing RFA of the medial branch,, he should follow up in the pain clinic in 2 weeks The discussed the results of the MRI Time with Patient: Less than 30
== END ==
LOC: PNWHC3 11:16
PROVIDERS: ATTEND Specialist
DX: M54.81 Occipital neuralgia (principal); G44.86 Cervicogenic headache; M47.812 Spondylosis without myelopathy or radiculopathy, cervical region; Z91.018 Allergy to other foods
CPT/HCPCS: 99211

== ENCOUNTER → 2023-06-21 | Outpatient (CLI) | payer OTHER ==
--- NOTE | 2023-06-21 21:17 | MR ---
EXAMINATION TYPE: MR cervical spine wo con DATE OF EXAM: 06/21/2023 9:10 PM CLINICAL INDICATION:Female, 33 years old with history of R51.9 headache; PHH, Headache, Neck pain int o left arm, loss of vision during headaches COMPARISON: 10/21/2016. TECHNIQUE: Multi planar, multi sequence imaging was performed utilizing: T1-weighted, T2-weighted, an d turbo inversion recovery imaging of the cervical spine. IV Contrast: cc (none if empty) FINDINGS: Alignment: The cervical vertebral bodies have preserved heights. Alignment is within normal limits gi jane patient positioning. Bones: Bone signal is within normal limits. No abnormal bone marrow edema on inversion recovery seque nces. Cord: The spinal cord is unremarkable with regards to their signal intensity and morphology. Discs: Multilevel disc desiccation is present. C2-C3: No significant disc pathology. The spinal canal is patent. No neural foraminal stenosis. C3-C4: No significant disc pathology. The spinal canal is patent. No neural foraminal stenosis. C4-C5: No significant disc pathology. The spinal canal is patent. Bilateral facet and uncovertebral joint arthropathy are present with mild left neural foraminal stenosis. The right neural foramen is p atent. C5-C6: No significant disc pathology. The spinal canal is patent. No neural foraminal stenosis. C6-C7: No significant disc pathology. The spinal canal is patent. No neural foraminal stenosis. C7-T1: No significant disc pathology. The spinal canal is patent. No neural foraminal stenosis. Other: None. IMPRESSION: 1. No evidence for disc herniation or significant spinal canal stenosis. 2. Minimal disc degeneration with associated osteoarthritic changes.
== END | disposition home or self-care (01) ==
LOC: RADMRIMAIN 20:30
PROVIDERS: ATTEND Specialist
DX: M50.30 Other cervical disc degeneration, unspecified cervical region (principal); M47.812 Spondylosis without myelopathy or radiculopathy, cervical region; H54.7 Unspecified visual loss
CPT/HCPCS: 72141

== ENCOUNTER → 2023-07-07 | Outpatient (CLI) | payer OTHER ==
[2023-07-07 12:33] VITALS: BP 131/85; PULSE 83; RESP 15; TEMP 97.2
--- NOTE | 2023-07-07 13:47 | P.PN ---
Subjective Progress Note Date: 07/07/23 This is a follow-up visit for this 33 years old female with a history of chronic severe headache,she is diagnosed with occipital neuralgia and cervicogenic headache, previously we have done bilateral occipital nerve block, she reports she had zero benefit from the occipital nerve bolock , she continued to have severe headache, patient reports that her headache started more than 10 years ago , and patient reported that the headache started after , was done under spinal anesthesia, and according to the patient it took 13 attempt , subarachnoid block , and from that time on she started developing positional headache , the headache increased over the last few months , and the headache increased with neck movement , and improved when she lie supine , usually on her headache and neck pain these hyperextension of the neck and lateral movement of the cervical spine, she denies any fever or night sweats she denies any motor or sensory deficit, she tried multiple medications, including medications specific for migraine headache, and for headache without any benefit (was prescribed by Dr. Jacobs ) patient here today for follow-up exam and discussion about the results of the MRI spine which was done for the cervical spine MRI of the cervical spine showed that the patient had C4-5 facet joint bilaterally and she had left side neural foraminal stenosis and multilevel disc desiccation Physical Examinations : -Constitutiona : Cooperative , not in acute distress . -HEENT : nech : supple , no Lymphadenopathy , normal thyroid size . : eyes : no ptosis , no icterus, no photophobia . - neurologic : Cranial nerve II to XII intact , no focal neurological deffecit . -psychatric : alert , oriented X 3 , appropriate affect , intact judgment and insight . -Lymphatic : no Lymphadenopathy . - musculoskeltal : Cervical Spine motor stregnth in the deltoid and biceps, normal right side , normal Left side motor stregnth biceps and the wrist e xtensors normal right side ,normal left side . motor stregnth in the triceps muscle . normal Right side , normal Left side Normal sensation in the upper extremity bilaterally cervical facet loading test: Positive Bilaterally Tenderness over the occipital nerve bilaterally Lumber spine moter stegnth lower extremities ,thigh and legs 5/5 Right side , 5/5 Left side Assessment and plan= 1-occipital neuralgia. 2-cervicogenic headache. 3-cervical spondylosis with cervical facet arthropathy ( clinical diagnosis ) 4-postdural puncture headache Patient reported that she had headache started 10 years ago ,after spinal anesthesia (took 13 attempt to get the cerebrospinal fluid ,to perform the spinal anesthesia ) patient reported that her headache improve significantly when she lies supine, patient possibly could benefit from lumbar epidural blood patch., Patient will follow- up with Dr. Jacobs for evaluation regarding second opinion about the epidural blood patch, if there is no contraindication to do a blood patch, then we will proceed with it after we get approval from the neurologist Patient had no benefit from occipital nerve block . if Patient had no benefit from the epidural blood patch , then will consider doing facet injection in the future Objective - Vital Signs Vital signs: Vital Signs Temp 97.2 F L 07/07/23 12:28 Pulse 83 07/07/23 12:28 Resp 15 07/07/23 12:28 BP 131/85 07/07/23 12:28 Pulse Ox 98 07/07/23 12:28 FiO2 Intake & Output 07/06/23 07/07/23 07/07/23 18:59 06:59 18:59 Weight 64.864 kg
== END ==
LOC: PNWHC3 10:59
PROVIDERS: ATTEND Specialist
DX: M54.81 Occipital neuralgia (principal); M48.02 Spinal stenosis, cervical region; M50.30 Other cervical disc degeneration, unspecified cervical region; G97.1 Other reaction to spinal and lumbar puncture; G44.86 Cervicogenic headache; M47.812 Spondylosis without myelopathy or radiculopathy, cervical region; Z91.018 Allergy to other foods
CPT/HCPCS: 99211

== ENCOUNTER → 2023-07-21 | Outpatient (CLI) | payer OTHER ==
[2023-07-22 01:56] LABS: Basophils # (A) 0.07 X 10*3/uL (0.00-0.10); Eosinophils # (A) 0.46 X 10*3/uL (0.04-0.35); Eosinophils % (A) 6.3 %; HCT 40.3 % (37.2-46.3); HGB 13.8 g/dL (12.0-15.0); Lymphocytes # (A) 2.46 X 10*3/uL (0.90-5.00); Lymphocytes % (A) 33.7 %; MCH 29.4 pg (27.0-32.0); MCHC 34.2 g/dL (32.0-37.0); MCV 85.7 FL (80.0-97.0); Mean Platelet Volume 12.5 FL (9.5-12.2); Monocytes # (A) 0.36 X 10*3/uL (0.20-1.00); Monocytes % (A) 4.9 %; NRBC Per 100 WBC 0 X 10*3/uL (0.00-0.01); Neutrophils # (A) 3.93 X 10*3/uL (1.80-7.70); Platelet Count 317 X 10*3/uL (140-440); RDW 13.6 % (11.5-14.5); WBC 7.29 X 10*3/uL (4.50-10.00)
[2023-07-22 02:41] LABS: ALT 13 U/L (8-44); AST 16 U/L (13-35); Albumin/Globulin Ratio 1.72 Ratio (1.60-3.17); Alkaline Phosphatase 59 U/L (41-126); BUN/Creat Ratio 15.14 Ratio (12.00-20.00); Blood Urea Nitrogen 10.6 mg/dL (9.0-27.0); Calcium 10.2 mg/dL (8.7-10.3); Chloride 102 mmol/L (96-109); Globulin 2.9 g/dL (1.6-3.3); Glucose 94 mg/dL (70-110); Potassium 3.5 mmol/L (3.5-5.5); Sodium 140 mmol/L (135-145); Total Bilirubin 0.8 mg/dL (0.3-1.2); Total Protein 7.9 g/dL (6.2-8.2)
== END | disposition home or self-care (01) ==
LOC: LABPAT 16:15
PROVIDERS: ATTEND Surgery Plastic and Reconstructive Surgery
DX: Z01.818 Encounter for other preprocedural examination (principal)
CPT/HCPCS: 36415; 80053; 85025; 93005

== ENCOUNTER → 2023-07-26 | Outpatient (CLI) | payer OTHER ==
--- NOTE | 2023-07-27 14:29 | MR ---
EXAMINATION TYPE: MR brain wo con DATE OF EXAM: 07/26/2023 8:58 PM CLINICAL INDICATION:Female, 33 years old with history of M54.81 SHERMAN OCCIPITAL NEURALGIA G43.719, Head aches with vision changes, Dizziness, Weakness and Numbness Left side, forgetful, Hx Cervical cancer 2007 COMPARISON: 10/21/2016. TECHNIQUE: Multi planar, multi sequence imaging was performed through the brain including: T1, T2, In version recovery, Diffusion weighted imaging, and gradient echo imaging. No gadolinium was given. FINDINGS: The coats-white junctions, ventricular system, basal cisterns appear unremarkable. Midline structures show no abnormality. Diffusion-weighted imaging shows no evidence of restricted diffusion. The suscep tibility weighted images do not reveal any evidence for micro-hemorrhage. The bone marrow signal is within normal limits. Paranasal sinuses and mastoid air cells: No significant paranasal sinus disease. Visualized orbits: Orbital contents are intact. IMPRESSION: 1. No evidence of intracranial mass or acute/subacute infarct.
== END | disposition home or self-care (01) ==
LOC: RADMRIMAIN 20:45
PROVIDERS: ATTEND Psychiatry & Neurology Neurology
DX: M54.81 Occipital neuralgia (principal); G43.719 Chronic migraine without aura, intractable, without status migrainosus; R42 Dizziness and giddiness; R53.1 Weakness; R41.3 Other amnesia; R20.0 Anesthesia of skin; Z85.41 Personal history of malignant neoplasm of cervix uteri
CPT/HCPCS: 70551

== ENCOUNTER 2023-07-28 09:36 | Day surgery (SDC) | payer OTHER ==
[2023-07-25 11:38] VITALS: BMI 23.1
[~2023-07-28 09:36] MED LIST changes: +LIDOCAINE 1% (10MG/ML) FOR IV START INTRADERMA PRN; +MIDAZOLAM 2 MG/2 ML VIAL IV PRN; +Pre Op ABX Message 1 EACH MISC MISCELLANE ONE; -SODIUM CHLORIDE 0.9% 1,000 ML IV SCH; -SODIUM CHLORIDE 0.9% 500 ML 500 ML IV ONE
--- NOTE | 2023-07-28 09:50 | P.GSHP ---
History of Present Illness H&P Date: 07/28/23 CHIEF COMPLAINT: History of intra-abdominal adhesions HISTORY OF PRESENT ILLNESS: The patient is a 35-year-old female who presents with history of intra-abdominal adhesions from multiple prior surgeries including increasing abdominal pain. She now presents for diagnostic laparoscopy including lysis of adhesions. PAST MEDICAL HISTORY: Please see list. PAST SURGICAL HISTORY: Please see list. MEDICATIONS: Please see list. ALLERGIES: Please see list. SOCIAL HISTORY: No illicit drug use FAMILY HISTORY: No reports of Crohn disease or ulcerative colitis. REVIEW OF ORGAN SYSTEMS: CONSTITUTIONAL: Denies any fever or chills. Denies recent weight loss or weight gain. HEENT: Denies any trouble with vision, hearing or nosebleeds. No difficulty swallowing. LYMPHATIC: The patient denies any lumps and bumps around the neck. ENDOCRINE: Denies any thyroid disorders. Denies any blood sugar glucose intolerance. RESPIRATORY: Denies pneumonia. Denies any troubles with breathing or dyspnea on exertion. CARDIOVASCULAR: Denies any chest pain, palpitations, or recent heart attacks. GASTROINTESTINAL: Denies heart burn, constipation or bright red blood per rectum. GENITOURINARY: Denies any blood in urine or increased urinary frequency. MUSCULOSKELETAL: Denies any back pain, stiffness, joint arthritis. NEUROLOGIC: Denies any numbness or tingling along the distal extremities. No seizure disorders or headaches. PSYCHIATRIC: Denies depression or suidical ideation. HEMATOLOGIC: Denies any abnormal bleeding or bruising. BREASTS: Denies any breast lumps, pain or nipple discharge. PHYSICAL EXAM: GENERAL: Well-developed pleasant male in no acute distress. HEENT: No scleral icterus. Extraocular movements grossly intact. Moist buccal mucosa. NECK: Supple without lymphadenopathy. CHEST: Unlabored respirations. Equal bilateral excursions. CARDIOVASCULAR: Regular rate and rhythm. Distal 2+ pulses. ABDOMEN: Soft, nondistended. Tender generalized abdominal pain. MUSCULOSKELETAL: No clubbing, cyanosis, or edema. SKIN: Well perfused. PSYCH: Alert and oriented to self, place and time ASSESSMENT: 1. Diffuse abdominal pain. 2. History of multiple abdominal surgeries. 3. Intra-abdominal adhesions. PLAN: 1. Robotic lysis of adhesions were described in detail including risk of injury to the intestine, need for further surgery, and open technique. 2. DVT prophylaxis. 3. Antibiotic prophylaxis. 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 EGD. Sleeve Gastrectomy 05-04-21. gastric bypass 12-14-21 Past Anesthesia/Blood Transfusion Reactions: No Reported Reaction Additional Past Anesthesia/Blood Transfusion Reaction / Comment(s): no blood tranfusion reaction Past Psychological History: Anxiety Additional Psychological History / Comment(s): sees therapist Additional Drug Use History / Comment(s): tried marijuana once march 2020 - Past Family History Sister(s) Family Medical History: Cancer, Deep Vein Thrombosis (DVT), Pulmonary Embolus Additional Family Medical History / Comment(s): thyroid cancer Medications and Allergies Home Medications Medication Instructions Recorded Confirmed Type Ergocalciferol [Vitamin D2 (1250 50,000 unit PO WEEKLY 03/10/22 07/25/23 History Mcg = 78343 Iu)] Acetaminophen Tab [Tylenol] 325 mg PO DIRECTED PRN 07/25/23 07/25/23 History Ascorbic Acid [Vitamin C chew] 500 mg PO DAILY 07/25/23 07/25/23 History Cholecalciferol [Vitamin D3 (25 25 mcg PO DAILY 07/25/23 07/25/23 History Mcg = 1000 Iu)] Methylphenidate HCl [Concerta] 50 mg PO DAILY 07/25/23 07/25/23 History Allergies Allergy/AdvReac Type Severity Reaction Status Date / Time pineapple Allergy Swelling Verified 07/25/23 10:47
[2023-07-28] MEDS: LACTATED RINGERS 1,000 ML IV SCH (10:03)
[2023-07-28] MEDS: SCOPOLAMINE 1 MG/72 HR PATCH TRANSDERM STA (10:15)
[2023-07-28] MEDS: DEXAMETHASONE SOD PHOSPHATE 4 MG/ML 1 ML VIAL IV ONE (10:16)
[2023-07-28] MEDS: ONDANSETRON 4 MG/2 ML VIAL IVP ONE (10:17)
[2023-07-28] MEDS: HEPARIN SODIUM,PORCINE 5,000 UNIT/ML 1 ML VIAL SQ PRN (10:18)
[2023-07-28] MEDS: MIDAZOLAM 2 MG/2 ML VIAL IVP ONE (10:19)
[2023-07-28 10:44] LABS: ALT 19 U/L (4-34); AST 31 U/L (14-36); African American GFR (CKD) >90 (>60 ml/min/1.73 sqM); Albumin 5.2 g/dL (3.5-5.0); Alkaline Phosphatase 68 U/L (38-126); Anion Gap 13 mmol/L; Blood Urea Nitrogen 13 mg/dL (7-17); Calcium 9.8 mg/dL (8.4-10.2); Carbon Dioxide 21 mmol/L (22-30); Chloride 108 mmol/L (98-107); Glucose 105 mg/dL (74-99); Non-African American GFR(CKD) >90 (>60 ml/min/1.73 sqM); Sodium 142 mmol/L (137-145); Total Bilirubin 1.8 mg/dL (0.2-1.3); Total Protein 8.5 g/dL (6.3-8.2)
[2023-07-28 10:48] LABS: Potassium 4.1 mmol/L (3.5-5.1)
[2023-07-28 11:38] VITALS: RESP 16
[2023-07-28] MEDS ORDERED: SUCCINYLCHOLINE CHLORIDE 200 MG/10 ML VIAL IV ONE (11:49)
[2023-07-28] MEDS ORDERED: LIDOCAINE 1% INJ 10MG/ML (20 ML MDV) ONE (11:49)
[2023-07-28] MEDS ORDERED: PROPOFOL 10 MG/ML 20 ML VIAL IV ONE (11:49)
[2023-07-28] MEDS ORDERED: MIDAZOLAM 2 MG/2 ML VIAL ONE (11:49)
[2023-07-28] MEDS ORDERED: fentaNYL (PF) 50 MCG/ML 2 ML AMP ONE (11:49)
[2023-07-28] MEDS ORDERED: ROCURONIUM 10 MG/ML (5 ML VIAL) IV ONE (11:49)
[2023-07-28] MEDS ORDERED: NEOSTIGMINE 1 MG/ML 10 ML VIAL ONE (11:49)
[2023-07-28] MEDS ORDERED: KETAMINE HCL IN 0.9 % NACL 50 MG/5 ML SYRINGE ONE (11:49)
[2023-07-28] MEDS ORDERED: GLYCOPYRROLATE 0.2 MG/ML 2 ML VIAL ONE (11:49)
[2023-07-28] MEDS: LIDOCAINE 2%-EPI 1:100,000 20 ML VIAL SQ ONE (12:27)
[2023-07-28 13:51] VITALS: TEMP 97.1
[2023-07-28] MEDS: HYDROmorphone 0.5 MG/0.5 ML SYRINGE IVP PRN (14:02)
--- NOTE | 2023-07-28 14:05 | P.OP ---
Date of Procedure: 07/28/23 Description of Procedure: PREOPERATIVE DIAGNOSES: 1. Left upper abdominal pain 2. History of peritoneal adhesions 3. Status post sleeve to gastric bypass. 4. Status post massive weight loss, over 150+ pounds POSTOPERATIVE DIAGNOSES: 1. Left upper abdominal pain 2. History of peritoneal adhesions 3. Status post sleeve to gastric bypass. 4. Status post massive weight loss, over 150+ pounds 5. Internal hernia, left upper quadrant 6. Interloop adhesions, left upper quadrant OPERATION: 1. Robotic-assisted xi laparoscopic lysis of adhesions with reduction and closure of internal hernia left upper quadrant Anesthesia: GETA, local Estimated Blood Loss (ml): 5 Pathology: none sent Condition: stable Disposition: same day COMPLICATIONS: None. Operative Findings: 1. Omental to abdominal wall adhesions to left upper quadrant, lower midline from previous section 2. Internal hernia reduced with closure of mesenteric defect consistent with left upper quadrant abdominal pain at Petersons defect, reopened 3. Rest of small bowel investigated including gastrojejunostomy Marco limb and common channel without intussusception or volvulus identified INDICATIONS: The patient is a 33-year-old female who presents with personal history of sleeve to gastric bypass and worsening left upper quadrant abdominal pain over 6 months exacerbated with eating. She reports developing primarily left upper quadrant abdominal pain including new small bowel obstruction symptoms. She has a personal history of peritoneal adhesions. As her symptoms have progressed, diagnostic laparoscopy with lysis of adhesions was described. Robotic-assisted approach was described. Benefits and risks, including possibility of open technique were described at length. Informed consent was obtained. DESCRIPTION OF PROCEDURE: The patient was brought into the operating room and laid in supine position. After general induction, the abdomen had been prepped and draped in standard sterile fashion. Ioban draping was also placed. Prior to incision, a timeout protocol was confirmed with surgical team regarding the patient's name including procedures to be performed. The robot was primed prior to the procedure. A field block using local anestheti was placed along the proposed port sites. Initial incision was made with an #11 blade along the left upper quadrant. A 0 degree 5 mm laparoscopic trocar entry was performed. The abdomen was insufflated to 15 mmHg pressure she tolerated well. Diagnostic laparoscopy demonstrated redundant sigmoid colon. The liver was unremarkable. No inguinal hernias were identified. A 8 mm trocar was placed along the right lateral abdominal wall approximately 12 cm lateral to the lower midline. An 8 mm port was placed along the right lower quadrant under direct localization. A 8 mm robotic port was positioned along the right upper quadrant. Placements of the ports were 20 cm from the target anatomy and approximately 10 cm apart. The da Eri XI robot was previously primed, prepped and draped. I then sat at the robot Da Eri XI console where working arms of the robot including Bovie cautery connected to robotic scissors, graspers and vessel sealer by the ex assistant/program director. In anterograde fashion, the gastric pouch including Marco limb was investigated towards the jejunojejunostomy. A Trinidad's defect was identified. Small bowel was found emanating from internal hernia. The mesenteric defect was found and closed using 2-0 V-Loc, green. The small bowel was re-investigated in a retrograde fashion as well as the antegrade fashion to confirm closure of all internal hernias including reduction of any small bowel volvulus or intussusception. Adhesions by the Marco limb was lysed using vessel sealer. Adhesions of omentum to abdominal wall was found of the left upper quadrant and lysed using vessel sealer. Lower midline adhesion from was also lysed using vessel sealer. Final inspection of the abdomen demonstrated adequate hemostasis including no enterotomies. All instruments and pneumoperitoneum were evacuated from the abdominal cavity. The da Eri XI robot was undocked from the patient. I re-scrubbed into the case for closure of incisions. The incisions were reapproximated using 4-0 Monocryl in an interrupted subcuticular fashion. Liquid glue was applied to the skin. At the end of the procedure, needle, sponge, and instrument count had been verified correct by office machine technician. The patient was taken to the postanesthesia care unit in stable condition. Plan - Discharge Summary Discharge Rx Participant: Yes New Discharge Prescriptions: New Simethicone [Gas-X] 125 mg PO AC-TID PRN #20 capsule PRN Reason: Pain Acetaminophen Tab [Tylenol Tab] 1,000 mg PO Q6HR PRN #30 tablet PRN Reason: Pain Cyclobenzaprine [Flexeril] 10 mg PO TID #30 tab Continue Methylphenidate HCl [Concerta] 50 mg PO DAILY Cholecalciferol [Vitamin D3 (25 Mcg = 1000 Iu)] 25 mcg PO DAILY Acetaminophen Tab [Tylenol] 325 mg PO DIRECTED PRN PRN Reason: Pain Ascorbic Acid [Vitamin C chew] 500 mg PO DAILY Ergocalciferol [Vitamin D2 (1250 Mcg = 50113 Iu)] 50,000 unit PO WEEKLY Discharge Medication List Ergocalciferol [Vitamin D2 (1250 Mcg = 08694 Iu)] 50,000 unit PO WEEKLY 03/10/22 [History] Acetaminophen Tab [Tylenol] 325 mg PO DIRECTED PRN 07/25/23 [History] Ascorbic Acid [Vitamin C chew] 500 mg PO DAILY 07/25/23 [History] Cholecalciferol [Vitamin D3 (25 Mcg = 1000 Iu)] 25 mcg PO DAILY 07/25/23 [History] Methylphenidate HCl [Concerta] 50 mg PO DAILY 07/25/23 [History] Acetaminophen Tab [Tylenol Tab] 1,000 mg PO Q6HR PRN #30 tablet 07/28/23 [Rx] Cyclobenzaprine [Flexeril] 10 mg PO TID #30 tab 07/28/23 [Rx] Simethicone [Gas-X] 125 mg PO AC-TID PRN #20 capsule 07/28/23 [Rx] [facility]Ref[place] [place] [facility]/24/23 2:00 pm Patient Instructions/Handouts: *Surgery [facility] - (Anesthesia) Discharge Instructions Outpatient Surgery, *Surgery [facility] - Scopalamine Patch Instructions, Lysis of Abdominal Adhesions (DC) Activity/Diet/Wound Care/Special Instructions: Recommend low-fat diet for the next 2 days. No lifting over 10 pounds in 2 weeks until August 10September shower. No bath tub soaks for two weeks until August 10 Diet as tolerated. Use Tylenol, simethicone scheduled for the next 24-48 hours for best pain relief. Use ice along incisions for today to prevent swelling. Discharge Disposition: HOME SELF-CARE
[2023-07-28] MEDS: HYDROmorphone 0.5 MG/0.5 ML SYRINGE IVP ONE ×2 (14:14→14:33)
[2023-07-28] MEDS: LACTATED RINGERS 1,000 ML IV ONE (14:40)
[2023-07-28 16:02] VITALS: BP 132/84; PULSE 98
== END 2023-07-28 15:46 | disposition home or self-care (01) ==
LOC: OR 09:36
PROVIDERS: ATTEND Surgery Plastic and Reconstructive Surgery
DX: K66.0 Peritoneal adhesions (postprocedural) (postinfection) (principal); I10 Essential (primary) hypertension; Z86.711 Personal history of pulmonary embolism; Z90.49 Acquired absence of other specified parts of digestive tract; Z98.891 History of uterine scar from previous surgery; Z98.51 Tubal ligation status; Z98.84 Bariatric surgery status; Z90.721 Acquired absence of ovaries, unilateral; Z79.899 Other long term (current) drug therapy
CPT/HCPCS: 81025; 80053; 49320; J2250; J0330; J1644; J1100; J2710; J0690; J2405; J2001; J3010; J2704; J1170

== ENCOUNTER → 2023-08-11 | Outpatient (CLI) | payer OTHER ==
--- NOTE | 2023-08-11 11:53 | P.PN ---
Subjective Progress Note Date: 08/11/23 This is a follow-up visit for this 33 years old female with a history of chronic severe headache,she is diagnosed with occipital neuralgia and cervicogenic headache, previously we have done bilateral occipital nerve block, she reports she had zero benefit from the occipital nerve bolock , she continued to have severe headache, patient reports that her headache started more than 10 years ago , and patient reported that the headache started after , was done under spinal anesthesia, and according to the patient it took 13 attempt , subarachnoid block , and from that time on she started developing positional headache , the headache increased over the last few months , and the headache increased with neck movement , and improved when she lie supine , usually on her headache and neck pain these hyperextension of the neck and lateral movement of the cervical spine, she denies any fever or night sweats she denies any motor or sensory deficit, she tried multiple medications, including medications specific for migraine headache, and for headache without any benefit (was prescribed by Dr. Jacobs ) patient here today for follow-up exam and discussion about the results of the MRI spine which was done for the cervical spine MRI of the cervical spine showed that the patient had C4-5 facet joint bilaterally and she had left side neural foraminal stenosis and multilevel disc desiccation Last visit we referred patient back to Dr. Jacobs (neurology services ) and Dr. Jacobs ordered MRI of the brain which was negative for any abnormality, and she recommended to proceed with the epidural blood patch, hopefully this will help her headache, patient had no benefit from the blood patch then will consider doing diagnostic medial branch block . Physical Examinations : -Constitutiona : Cooperative , not in acute distress . -HEENT : nech : supple , no Lymphadenopathy , normal thyroid size . : eyes : no ptosis , no icterus, no photopho juliane . - neurologic : Cranial nerve II to XII intact , no focal neurological deffecit . -psychatric : alert , oriented X 3 , appropriate affect , intact judgment and insight . -Lymphatic : no Lymphadenopathy . - musculoskeltal : Cervical Spine motor stregnth in the deltoid and biceps, normal right side , normal Left side motor stregnth biceps and the wrist extensors normal right side ,normal left side . motor stregnth in the triceps muscle . normal Right side , normal Left side Normal sensation in the upper extremity bilaterally cervical facet loading test: Positive Bilaterally Tenderness over the occipital nerve bilaterally Lumber spine moter stegnth lower extremities ,thigh and legs 5/5 Right side , 5/5 Left side Assessment and plan= 1-occipital neuralgia. 2-cervicogenic headache. 3-cervical spondylosis with cervical facet arthro yue ( clinical diagnosis ) 4-postdural puncture headache Patient reported that she had headache started 10 years ago ,after spinal anesthesia (took 13 attempt to get the cerebrospinal fluid ,to perform the spinal anesthesia ) patient reported that her headache improve significantly when she lies supine, patient possibly could benefit from lumbar epidural blood patch, patient had MRI of the brain done recently which showed no abnormalities, and patient was evaluated by Dr. Jacobs And recommend lumbar epidural blood patch. Patient will be scheduled to have lumbar epidural blood patch .
[2023-08-11 12:19] VITALS: BP 145/109; PULSE 76; RESP 15; TEMP 98.3
== END ==
LOC: PNWHC3 10:57
PROVIDERS: ATTEND Specialist
DX: M54.81 Occipital neuralgia (principal); G44.86 Cervicogenic headache; M47.812 Spondylosis without myelopathy or radiculopathy, cervical region; G97.1 Other reaction to spinal and lumbar puncture
CPT/HCPCS: 99211

== ENCOUNTER → 2023-08-25 | Day surgery (SDC) | payer OTHER ==
[2023-08-23 08:45] VITALS: BMI 21.9
[~2023-08-25] MED LIST changes: +IOPAMIDOL M200 10 ML VIAL ONE; -LIDOCAINE 1% (10MG/ML) FOR IV START INTRADERMA PRN; -MIDAZOLAM 2 MG/2 ML VIAL IV PRN; +MIDAZOLAM 2 MG/2 ML VIAL ONE; -Pre Op ABX Message 1 EACH MISC MISCELLANE ONE; +fentaNYL (PF) 50 MCG/ML 2 ML AMP ONE
[2023-08-25 08:42] VITALS: TEMP 97.5
[2023-08-25] MEDS: LACTATED RINGERS 1,000 ML IV SCH (08:59)
--- NOTE | 2023-08-25 09:53 | P.PCN ---
Date of Procedure: 08/25/23 Procedure(s) Performed: PREOPERATIVE DIAGNOSIS: 1-cervicogenic headache 2-postdural puncture headache 3-occipital neuralgia. POSTOPERATIVE DIAGNOSIS: Same as preop diagnosis PROCEDURE 1. Lumbar epidural blood patch (Fluoroscopy imaging was available in radiology department) 2. Lumbar epidurogram. ANESTHESIA: Moderate sedation with Versed 4 mg, and fentanyl 100 mcg (patient start time 09:29, end time 09:45 ) EBL: Minimal PROCEDURE INDICATION: The patient with headache and neck pain symptoms unre sponsive to conservative treatment., Patient had component picture between postdural puncture headache and cervicogenic headache, she is here to have blood patch, fluoroscopy was used to optimize visualization of the needle placement and to maximize safety. PROCEDURE DESCRIPTION / TECHNIQUE: The patient was seen and identified in the preoperative area. Risks, benefits, complications including but not limited to infections ,bleeding ,allergic reaction to the medications ,nerve damage and not complete pain releife , and alternatives were discussed with the patient. The patient agreed to proceed with the procedure and signed the consent, and vital signs were stable. Patient was taken to the OR and time out was completed. The patient was placed in the prone position on procedure table and a pillow was placed under the abdomen to reduce lumbar lordosis. The lumbosacral area was prepped and draped in the usual sterile fashion.ere closely monitored during the procedure. Vital signs was monitered during the entire procedure. Using anterior-posterior fluoroscopy, the L4-5 interlaminar space was identified and the skin over this site was marked and then infiltrated with 1% lidocaine subcutaneously. Subsequently, a 20-gauge Tuohy epidural needle was inserted and advanced toward the epidural space using the ``Loss of resistance technique and guided by AP and lateral fluoroscopy. The correct needle position in the epidural space was verified with the injection of 2 mL of the water soluble contrast dye Isovue 200 contrast and observing an excellent epidurogram with the epidural spread of the dye, after negative aspiration for blood and CSF and in the absence of paresthesias. 15 mL of blood taken from the patient's left antecubital vein under sterile technique , 15 mL of autologous blood injected in the epidural space. Needle was withdrawn intact, skin was cleansed, and bandages were applied. COMPLICATIONS: None DISPOSITION / PLANS: The patient was placed in a supine position and transferred to the recovery area in a stable condition for observation. There was no evidence of lower extremity motor or sensory deficit after the procedure. Patient was discharged from the recovery room after meeting discharge criteria. Home discharge instructions were given to the patient by the staff. The patient was reexamined prior to discharge. The patient will schedule a follow up in the clinic in 2-4 weeks.
[2023-08-25] MEDS: IV FLUID CONTINUATION 1,000 ML IV ONE (09:55)
--- NOTE | 2023-08-25 10:09 | FL ---
Fluoroscopy INDICATION: Blood patch FINDINGS: Fluoroscopy time: 1.1 seconds. Total dose area product (DAP) in uGy*m?, mGy*cm? (or similar): 0.42496 Images obtained: 1. IMPRESSION: 1. Documentation of fluoroscopy.
[2023-08-25 10:34] VITALS: BP 114/80; PULSE 89; RESP 14
== END ==
LOC: ORPAIN 08:10
PROVIDERS: ATTEND Specialist
DX: G97.1 Other reaction to spinal and lumbar puncture (principal); M54.81 Occipital neuralgia; G44.86 Cervicogenic headache; Z91.018 Allergy to other foods; Y84.4 Aspiration of fluid as the cause of abnormal reaction of the patient, or of later complication, without mention of misadventure at the time of the procedure
CPT/HCPCS: 62273; 99152; J2250; J3010; Q9966

== ENCOUNTER → 2023-09-08 | Outpatient (CLI) | payer OTHER ==
--- NOTE | 2023-09-08 12:28 | P.PN ---
Subjective Progress Note Date: 09/08/23 This is a follow-up visit for this 33 years old female with a history of chronic severe headache,she is diagnosed with occipital neuralgia and cervicogenic headache, recently we have done bilateral occipital nerve block, she reports she had zero benefit from the occipital nerve bolock , recently we did epidural blood patch , which helped her headache significantly , currently her main problem and is neck pain which is increased with any neck movement, usually hyperextension of the neck and lateral movement of the cervical spine, she denies any fever or night sweats she denies any motor or sensory deficit, she tried multiple medications, including medications specific for migraine headache, and for headache without any benefit (was prescribed by Dr. Jacobs ), Objective - Exam Physical Examinations : -Constitutiona : Cooperative , not in acute distress . -HEENT : nech : supple , no Lymphadenopathy , normal thyroid size . : eyes : no ptosis , no icterus, no photophobia . - neurologic : Cranial nerve II to XII intact , no focal neurological deffecit . -psychatric : alert , oriented X 3 , appropriate affect , intact judgment and insight . -Lymphatic : no Lymphadenopathy . - musculoskeltal : Cervical Spine motor stregnth in the deltoid and biceps, normal right side , normal Left side motor stregnth biceps and the wrist extensors normal right side ,normal left side . motor stregnth in the triceps muscle . normal Right side , normal Left side Normal sensation in the upper extremity bilaterally cervical facet loading test: Positive Bilaterally Tenderness over the occipital nerve bilaterally Lumber spine moter stegnth lower extremities ,thigh and legs 5/5 Right side , 5/5 Left side Assessment and Plan Plan: Assessment and plan=1-occipital neuralgia. 2-cervicogenic headache. 3-cervical spondylosis with cervical facet arthropathy ( clinical diagnosis ) Patient had no benefit from occipital nerve block done previously. Patient continues to have severe neck pain and clinical exam support that because of the neck pain is cervical facetogenic problem Patient will be a good candidate to have diagnostic medial branch block cervical area C2 , C3 ,C4 ,(to target the facet joint at C2-3, C3-4 ) If she has positive results then we will do RFA of the cervical facet levels mentioned above Time with Patient: Less than 30
[2023-09-08 15:03] VITALS: BP 126/89; PULSE 142; RESP 16
== END ==
LOC: PNWHC3 11:08
PROVIDERS: ATTEND Specialist
DX: G44.86 Cervicogenic headache (principal); M54.81 Occipital neuralgia; M47.812 Spondylosis without myelopathy or radiculopathy, cervical region; M54.2 Cervicalgia; Z91.018 Allergy to other foods
CPT/HCPCS: 99211

== ENCOUNTER → 2023-10-19 | Outpatient (CLI) | payer OTHER ==
[2023-10-19 17:14] VITALS: BP 131/87; PULSE 99; RESP 16; TEMP 98; BMI 24.1
--- NOTE | 2023-10-19 17:35 | P.BASOAP ---
Subjective Progress Note Date: 10/19/23 DATE OF SERVICE: 10/19/23 CHIEF COMPLAINT: Status post gastric bypass HISTORY OF PRESENT ILLNESS: Razia Lilly is a 33-year-old female status post sleeve gastrectomy, 05/04/21. She is status post conversion from sleeve to gastric bypass, 12/14/2021. She is 2 years out. She is status post lysis of adhesions less than 3 months ago, 07/28/2023. She has left upper quadrant pain. She reports abdominal pain came back same character despite prior surgery. She reports the pain is severe. At height of 5 feet 7 inches, her ideal body weight is 158 pounds. Her highest weight is 300 pounds with body mass index 47.1. She comes in 155 pounds from 209 pounds, 1 year ago. She has lost 54 pounds in 1 year. Her body mass index is 24.3. Lifetime weight loss of 146 pounds. Percent lifetime weight loss of 103 %. PHYSICAL EXAM: VITAL SIGNS: Height 5 foot 7 inches, weight 154 pounds. BMI 24.1 Vital Signs Temp 98 F 10/19/23 16:45 Pulse 99 10/19/23 16:45 Resp 16 10/19/23 16:45 BP 131/87 10/19/23 16:45 Pulse Ox FiO2 GENERAL: Well-developed in no acute distress. HEENT: No scleral icterus. Extraocular movements grossly intact. Hears conversational speech. No nasal drainage. NECK: Supple without lymphadenopathy. CHEST: Nonlabored respirations with equal bilateral excursions. CARDIOVASCULAR: 2+ radial pulses. Tachycardic ABDOMEN: Diastasis recti. Tender epigastrium. MUSCULOSKELETAL: No clubbing, cyanosis. NEURO: No focal or lateralizing signs. Cranial nerves 2 through 12 grossly within normal limits. PSYCH: Appropriate affect. Alert and oriented to person, place and time. SKIN: Good skin turgor. Well perfused. ASSESSMENT: 1. Epigastric tenderness 2. Morbid obesity due to excess calories, body mass index of 47.1, initial to 24.1 3. Hypertensive heart disease. 4. Migraines 5. Spina Bifida 6. Osteoarthritis of the hips 7. Osteoarthritis of the knees. 8. Vitamin D deficiency 9. Status post sleeve gastrectomy 10. Vitamin A deficiency 11. Complications from sleeve gastrectomy 12. Status post sleeve to gastric bypass. PLAN: 1. She has severe to moderate left upper quadrant abdominal pain with risk of an recurrent internal hernia intussusception. Recommend diagnostic laparoscopy with possible robotic lysis of adhesions. Objective - Vital Signs Vital signs: Vital Signs Temp 98 F 10/19/23 16:45 Pulse 99 10/19/23 16:45 Resp 16 10/19/23 16:45 BP 131/87 10/19/23 16:45 Pulse Ox FiO2 Intake & Output 10/18/23 10/19/23 10/19/23 18:59 06:59 18:59 Weight 69.853 kg Assessment/Plan Plan: Date: 10/19/23 Initial Weight: 117.48 kg Initial BMI: 40.5 Current Weight: 69.853 kg Current BMI: 24.1 Type of Surgery: Marco-en-Y Gastric Bypass Total Volume in Band: Previous Volume: Volume Removed: Volume Added: Band Size:
== END ==
LOC: BARWHC3 16:13
PROVIDERS: ATTEND Surgery Plastic and Reconstructive Surgery
DX: E66.01 Morbid (severe) obesity due to excess calories (principal); R10.816 Epigastric abdominal tenderness; I11.9 Hypertensive heart disease without heart failure; G43.909 Migraine, unspecified, not intractable, without status migrainosus; Q05.9 Spina bifida, unspecified; M16.0 Bilateral primary osteoarthritis of hip; M17.0 Bilateral primary osteoarthritis of knee; E55.9 Vitamin D deficiency, unspecified; E50.9 Vitamin A deficiency, unspecified; K95.89 Other complications of other bariatric procedure; Z90.3 Acquired absence of stomach [part of]; Z98.84 Bariatric surgery status; Z68.24 Body mass index [BMI] 24.0-24.9, adult; Z91.018 Allergy to other foods; Z79.899 Other long term (current) drug therapy
CPT/HCPCS: 99211

== ENCOUNTER → 2023-12-13 | Outpatient (CLI) | payer OTHER ==
[2023-12-13 15:53] LABS: Basophils # (A) 0.06 X 10*3/uL (0.00-0.10); Eosinophils # (A) 0.68 X 10*3/uL (0.04-0.35); HGB 12.7 g/dL (12.0-15.0); Lymphocytes # (A) 1.72 X 10*3/uL (0.90-5.00); Lymphocytes % (A) 27.9 %; MCH 27.8 pg (27.0-32.0); MCHC 32.6 g/dL (32.0-37.0); MCV 85.3 FL (80.0-97.0); Mean Platelet Volume 11.7 FL (9.5-12.2); Monocytes # (A) 0.39 X 10*3/uL (0.20-1.00); Monocytes % (A) 6.3 %; NRBC Per 100 WBC 0 X 10*3/uL (0.00-0.01); Neutrophils # (A) 3.31 X 10*3/uL (1.80-7.70); Neutrophils % (A) 53.6 %; Platelet Count 303 X 10*3/uL (140-440); RBC 4.57 X 10*6/uL (4.10-5.20); RDW 12.8 % (11.5-14.5); WBC 6.17 X 10*3/uL (4.50-10.00)
[2023-12-13 16:11] LABS: ALT 16 U/L (8-44); AST 19 U/L (13-35); Albumin 4.6 g/dL (3.8-4.9); Alkaline Phosphatase 65 U/L (41-126); BUN/Creat Ratio 16.14 Ratio (12.00-20.00); Blood Urea Nitrogen 11.3 mg/dL (9.0-27.0); Calcium 9.5 mg/dL (8.7-10.3); Carbon Dioxide 24.1 mmol/L (21.6-31.8); Chloride 104 mmol/L (96-109); Globulin 2.7 g/dL (1.6-3.3); Glucose 82 mg/dL (70-110); Potassium 4.8 mmol/L (3.5-5.5); Sodium 139 mmol/L (135-145); Total Bilirubin 0.8 mg/dL (0.3-1.2); Total Protein 7.3 g/dL (6.2-8.2)
== END | disposition home or self-care (01) ==
LOC: LABPAT 11:36
PROVIDERS: ATTEND Surgery Plastic and Reconstructive Surgery
DX: Z01.818 Encounter for other preprocedural examination (principal)
CPT/HCPCS: 80053; 85025; 86850; 86900; 86901; 93005

== ENCOUNTER 2023-12-19 07:55 | Day surgery (SDC) | payer OTHER ==
[2023-12-14 15:33] VITALS: BMI 21.9
[~2023-12-19 07:55] MED LIST changes: -IOPAMIDOL M200 10 ML VIAL ONE; +LIDOCAINE 1% (10MG/ML) FOR IV START INTRADERMA PRN; +MIDAZOLAM 2 MG/2 ML VIAL IV PRN; -MIDAZOLAM 2 MG/2 ML VIAL ONE; +Pre Op ABX Message 1 EACH MISC MISCELLANE ONE; +SCOPOLAMINE 1 MG/72 HR PATCH TRANSDERM ONE; +fentaNYL (PF) 50 MCG/ML 2 ML AMP IVP PRN; -fentaNYL (PF) 50 MCG/ML 2 ML AMP ONE
--- NOTE | 2023-12-19 07:56 | P.GSHP ---
History of Present Illness H&P Date: 12/19/23 CHIEF COMPLAINT: Severe abdominal pain and history of adhesions HISTORY OF PRESENT ILLNESS: The patient is a 33-year-old female who presents with history of intra-abdominal adhesions from multiple prior surgeries including increasing abdominal pain. She has history of gastric bypass but increased recently internal hernia, intussusception abdominal pain. She now presents for diagnostic laparoscopy including lysis of adhesions. PAST MEDICAL HISTORY: Please see list. PAST SURGICAL HISTORY: Please see list. MEDICATIONS: Please see list. ALLERGIES: Please see list. SOCIAL HISTORY: No illicit drug use FAMILY HISTORY: No reports of Crohn disease or ulcerative colitis. REVIEW OF ORGAN SYSTEMS: CONSTITUTIONAL: Denies any fever or chills. Has unintentional weight loss. HEENT: Denies any trouble with vision, hearing or nosebleeds. No difficulty swallowing. LYMPHATIC: The patient denies any lumps and bumps around the neck. ENDOCRINE: Denies any thyroid disorders. Denies any blood sugar glucose intolerance. RESPIRATORY: Denies pneumonia. Denies any troubles with breathing or dyspnea on exertion. CARDIOVASCULAR: No recent chest pain. GASTROINTESTINAL: No recent dumping syndrome. GENITOURINARY: Denies any blood in urine or increased urinary frequency. MUSCULOSKELETAL: Denies any back pain, stiffness, joint arthritis. NEUROLOGIC: Denies any numbness or tingling along the distal extremities. No seizure disorders or headaches. PSYCHIATRIC: Denies depression or suidical ideation. HEMATOLOGIC: Denies any abnormal bleeding or bruising. BREASTS: Denies any breast lumps, pain or nipple discharge. PHYSICAL EXAM: GENERAL: Well-developed pleasant male in no acute distress. HEENT: No scleral icterus. Extraocular movements grossly intact. Moist buccal mucosa. NECK: Supple without lymphadenopathy. CHEST: Unlabored respirations. Equal bilateral excursions. CARDIOVASCULAR: Regular rate and rhythm. Distal 2+ pulses. ABDOMEN: Soft, nondistended. Tender generalized abdominal pain. MUSCULOSKELETAL: No clubbing, cyanosis, or edema. SKIN: Well perfused. PSYCH: Alert and oriented to self, place and time ASSESSMENT: 1. Diffuse abdominal pain. 2. History of multiple abdominal surgeries. 3. Intra-abdominal adhesions. 4. History of gastric bypass PLAN: 1. Robotic lysis of adhesions were described in detail including risk of injury to the intestine, need for further surgery, and open technique. 2. DVT prophylaxis. 3. Antibiotic prophylaxis. Past Medical History Past Medical History: Cancer, Hypertension, Liver Disease, Pulmonary Embolus (PE), Syncope Additional Past Medical History / Comment(s): hx sleeve gastrectomy (04/2021) and c/o nausea & vomiting., hx migraines.,spina bifida., cervical cancer- no chemo no radiation , heart palpitations with extra beats had an event monitor on until the evening of 12/13/21, jaw easily dislocated, follows up with Dr. Diaz yearly for the extra heart beat. fatty liver disease. History of Any Multi-Drug Resistant Organisms: None Reported Past Surgical History: Adenoidectomy, Appendectomy, Bariatric Surgery, Section, Cholecystectomy, Tonsillectomy, Tubal Ligation Additional Past Surgical History / Comment(s): C-S X 4; mass on ovary removed; extra tongue was removed at age 7; jaw surgery.mass removed from ovary 2014, 80% OF CERVIX REMOVED, EGD,Sleeve Gastrectomy 05-04-21. gastric bypass 12-14-21, lysis of adhesions 07/28/23 Past Anesthesia/Blood Transfusion Reactions: No Reported Reaction Additional Past Anesthesia/Blood Transfusion Reaction / Comment(s): no blood tranfusion reaction Smoking Status: Never smoker - Past Family History Sister(s) Family Medical History: Blood Disorder, Cancer, Deep Vein Thrombosis (DVT), Pulmonary Embolus Additional Family Medical History / Comment(s): thyroid cancer, blood cancer Medications and Allergies Home Medications Medication Instructions Recorded Confirmed Type Ergocalciferol [Vitamin D2 (1250 50,000 unit PO SRIVASTAVA 03/10/22 12/14/23 History Mcg = 80837 Iu)] Ascorbic Acid [Vitamin C chew] 500 mg PO QAM 07/25/23 12/14/23 History Cholecalciferol [Vitamin D3 (25 25 mcg PO QAM 07/25/23 12/14/23 History Mcg = 1000 Iu)] Allergies Allergy/AdvReac Type Severity Reaction Status Date / Time pineapple Allergy Swelling Verified 12/14/23 15:23
[2023-12-19] MEDS: MIDAZOLAM 2 MG/2 ML VIAL IVP ONE (08:50)
--- NOTE | 2023-12-19 09:02 | P.ANPRN ---
Procedure Note - Anesthesia - Nerve Block Performed Bilateral Erector Spinae Single Time Out Performed: Yes Date of Procedure: 12/19/23 Procedure Start Time: :49 Procedure Stop Time: :54 Location of Patient: PreOp Indication: Acute Post-Operative Pain, Analgesia, Requested by Surgeon Sedation Type: Sedate with meaningful contact maintained Preparation: Sterile Prep Position: Prone Needle Types: Pajunk Needle Gauge: 21 Ultrasound used to visualize needle placement: Yes Ultrasound used to observe medication spread: Yes Injectate: 0.5% Ropivacaine (see comment for volume) (Ropiv 20ml+Decadron 4mg ----Each side) Blood Aspirated: No Pain Paresthesia on Injection Noted: No Resistance on Injection: Normal Image Stored and Saved: Yes Events: Uneventful and Well Tolerated
[2023-12-19] MEDS: ONDANSETRON 4 MG/2 ML VIAL IVP ONE (09:08)
[2023-12-19] MEDS: DEXAMETHASONE SOD PHOSPHATE 4 MG/ML 1 ML VIAL IV ONE (09:08)
[2023-12-19] MEDS: HEPARIN SODIUM,PORCINE 5,000 UNIT/ML 1 ML VIAL SQ PRN (09:08)
[2023-12-19] MEDS: LACTATED RINGERS 1,000 ML IV SCH (09:08)
[2023-12-19] MEDS: IV FLUID CONTINUATION 1,000 ML IV ONE (09:09)
--- NOTE | 2023-12-19 09:28 | P.HPADDEND ---
H&P Addendum H&P Addendum Date: 12/19/23 Patient reports moderate to severe epigastric abdominal pain with known history of ulcers. Will add upper endoscopy for further assessment
[2023-12-19] MEDS ORDERED: DEXAMETHASONE SOD PHOSPHATE 4 MG/ML 1 ML VIAL ONE (09:39)
[2023-12-19] MEDS ORDERED: MIDAZOLAM 2 MG/2 ML VIAL ONE (09:39)
[2023-12-19] MEDS ORDERED: PHENYLEPHRINE 10 MG/ML VIAL ONE (09:39)
[2023-12-19] MEDS ORDERED: ROPIVACAINE 5 MG/ML 30 ML VIAL ONE (09:39)
[2023-12-19] MEDS ORDERED: fentaNYL (PF) 50 MCG/ML 2 ML AMP ONE (09:39)
[2023-12-19] MEDS ORDERED: ceFAZolin 1 GM/50 ML BAG (PMX) ONE (09:39)
[2023-12-19] MEDS ORDERED: SUCCINYLCHOLINE CHLORIDE 200 MG/10 ML VIAL IV ONE (09:39)
[2023-12-19] MEDS ORDERED: NEOSTIGMINE 1 MG/ML 10 ML VIAL ONE (09:39)
[2023-12-19] MEDS ORDERED: LIDOCAINE 1% INJ 10MG/ML (20 ML MDV) ONE (09:39)
[2023-12-19] MEDS ORDERED: PROPOFOL 10 MG/ML 20 ML VIAL IV ONE (09:39)
[2023-12-19] MEDS ORDERED: GLYCOPYRROLATE 0.2 MG/ML 2 ML VIAL ONE (09:39)
[2023-12-19] MEDS ORDERED: KETAMINE HCL IN 0.9 % NACL 50 MG/5 ML SYRINGE ONE (09:39)
[2023-12-19] MEDS ORDERED: ROCURONIUM 10 MG/ML (5 ML VIAL) IV ONE (09:39)
[2023-12-19] MEDS: SODIUM CHLORIDE 0.9% 100 ML with ceFAZolin 2,000 MG IV ONE ×2 (09:47→10:15)
[2023-12-19] MEDS: LIDOCAINE 1%-EPI 1:100,000 20 ML VIAL SQ ONE (10:14)
[2023-12-19 11:46] VITALS: TEMP 97.1
[2023-12-19] MEDS: droPERidol 5 MG/2 ML VIAL IVP ONE (12:07)
[2023-12-19] MEDS: HYDROmorphone 0.5 MG/0.5 ML SYRINGE IVP PRN (12:48)
[2023-12-19 13:41] VITALS: RESP 16
[2023-12-19 13:53] VITALS: BP 114/76; PULSE 68
--- NOTE | 2023-12-19 18:13 | P.OP ---
Date of Procedure: 12/19/23 Description of Procedure: SURGEON: YESSY ANGULO MD PREOPERATIVE DIAGNOSES: 1. Epigastric tenderness 2. Left upper quadrant abdominal pain 3. History of hypertensive heart disease. 4. Migraines 5. Spina Bifida 6. Osteoarthritis of the hips 7. Osteoarthritis of the knees. 8. Status post sleeve to gastric bypass. 9. History of morbid obesity due to excess calories 10. Body mass index of 47.1, initial to 24.9 11. History of gastrojejunal ulcers 12. History of peritoneal adhesions POSTOPERATIVE DIAGNOSES: 1. Epigastric tenderness due to peritoneal adhesions 2. Left upper quadrant abdominal pain due to peritoneal adhesions 3. History of hypertensive heart disease. 4. Migraines 5. Spina Bifida 6. Osteoarthritis of the hips 7. Osteoarthritis of the knees. 8. Status post sleeve to gastric bypass. 9. History of morbid obesity due to excess calories 10. Body mass index of 47.1, initial to 24.9 11. History of gastrojejunal ulcers 12. Moderate peritoneal adhesions epigastrium, left upper quadrant, jejunum OPERATION: 1. Robotic-assisted da Eri Xi laparoscopic with extensive lysis of adhesions over 1 hr 2. Intraoperative esophagogastrojejunoscopy ESTIMATED BLOOD LOSS: 5 mL. SPECIMENS REMOVED: None. COMPLICATIONS: None. OPERATIVE FINDINGS: 1. Epigastric adhesions due to omentum to the gastric pouch adhesions, divided with vessel sealer 2. Omental adhesions to gastric pouch, divided with vessel sealer 3. Moderate retroperitoneal adhesions retracting jejunojejunostomy at area of left upper quadrant abdominal pain 4. Highly redundant sigmoid colon 5. Right ovary within normal limits 6. Anterior uterus adherent to lower abdominal wall/pelvis 7. Multiple clips and staple line at appendectomy site 8. Marco limb approximately 95 to 100 cm length 9. Biliopancreatic limb proximally 55 to 60 cm in length 10. Jejunojejunostomy inherent to gastrojejunostomy, jejunal limb INDICATIONS: The patient is a 33-year-old female who presents with epigastric abdominal pain including left upper quadrant abdominal pain. He has personal history of multiple abdominal adhesions causing abdominal pain. Initially, patient reports epigastric pain pre-existing history of ulcers. Upper endoscopy for assessment of gastric ulcers with concurrent surgical intervention with diagnostic laparoscopy, lysis of adhesions were described. Informed consent was obtained. Robotic assisted laparoscopic approach was described. Benefits and risks of the procedure including but not limited to bleeding, infection, injury to the small bowel was described. Informed consent was obtained. DESCRIPTION OF PROCEDURE: Patient was brought to the operating room, placed in supine position. After general induction, the abdomen had been prepped and draped in standard sterile fashion. The robotic da Eri XI system was primed. After a timeout protocol was performed, the patient had been prepped and draped in standard sterile fashion. A 5 mm 0 degrees laparoscopic trocar entry was performed along the left upper quadrant. The abdomen was insufflated to 15 mmHg pressure which she tolerated well. Diagnostic laparoscopy was performed with highly redundant sigmoid colon identified. No presence of bowel obstruction was identified. Next, three 8 mm robotic ports were placed along the right lateral abdominal wall. The camera 8-mm port was maintained along mid-lateral abdomen. Please note that the ports were placed at least 10 to 15 cm away from the target anatomy. Instruments including graspers and vessel sealer were interchanged by the hygiene assistant. The robot was docked along the left lateral abdominal wall. I had sat at the console. No incisional hernia was identified. The small bowel from the marco limb to distal ileum was inspected. The small bowel was investigated from the terminal ileum to the ligament of Treitz with finding of adhesions along the gastric pouch, omentum to gastric pouch, retroperitoneal lesions along the jejunostomy causing retraction of the left upper quadrant. Abnormal adhesions to the jejunojejunostomy was identified and divided. Adhesions along the epigastrium linvolving the transverse colon to the marco limb was lysed using vessel sealer. The Petersons defect was scarred. No herniation of bowel was found along the jejunojejunostomy mesentery. Adhesion of gastrojejunal anastomosis to the anterior abdominal wall was released. The adhesions along the jejunojejunostomy to the retroperitoneum was lysed recreating a internal hernia which was closed using 2-0 V-Loc green suture, absorbable. Extensive lysis of adhesions over 1 hr was performed. The small bowel was viable.The robot was undocked. All pneumoperitoneum instruments were evacuated from the abdominal cavity. The incisions were reapproximated using 4-0 Monocryl in an interrupted subcuticular fashion. Please note along the trocar sites, local anesthetic was placed as a field block prior to insertion of all instruments. Exofin was applied to the skin. At the end of the procedure needle, sponge, and instrument count had been verified correct by the surgical garment assembler. The patient was transferred to postanesthesia care unit in stable condition. Plan - Discharge Summary Discharge Rx Participant: Yes New Discharge Prescriptions: New Acetaminophen Tab [Tylenol Tab] 1,000 mg PO Q6HR PRN #30 tablet PRN Reason: Pain Simethicone [Gas-X] 125 mg PO AC-TID PRN #20 capsule PRN Reason: Pain Continue Cholecalciferol [Vitamin D3 (25 Mcg = 1000 Iu)] 25 mcg PO QAM Ascorbic Acid [Vitamin C chew] 500 mg PO QAM Ergocalciferol [Vitamin D2 (1250 Mcg = 96444 Iu)] 50,000 unit PO SRIVASTAVA Discharge Medication List Ergocalciferol [Vitamin D2 (1250 Mcg = 82109 Iu)] 50,000 unit PO SRIVASTAVA 03/10/22 [History] Ascorbic Acid [Vitamin C chew] 500 mg PO QAM 07/25/23 [History] Cholecalciferol [Vitamin D3 (25 Mcg = 1000 Iu)] 25 mcg PO QAM 07/25/23 [History] Acetaminophen Tab [Tylenol Tab] 1,000 mg PO Q6HR PRN #30 tablet 12/19/23 [Rx] Simethicone [Gas-X] 125 mg PO AC-TID PRN #20 capsule 12/19/23 [Rx] [facility]ment[facility]Ref[facility] [place] [facility] [place] 12[facility]23[facility]23 9:00 am Patient Instructions/Handouts: *Surgery [facility] - (Anesthesia) Discharge Instructions Outpatient Surgery, Deep Vein Thrombosis Prevention (DC), Lysis of Abdominal Adhesions (DC) Activity/Diet/Wound Care/Special Instructions: NO LONG DRIVES OR AIRPLANE RIDES OVER 30 MINUTES FOR THE NEXT 2 WEEKS DUE TO HIGH RISK OF PULMONARY EMBOLISM/DVTs Recommend low-fat diet for the next 2 days. No lifting over 10 pounds in 2 weeks until Jan 01September shower. No bath tub soaks for two weeks until Jan 01 Diet as tolerated. Use Tylenol, simethicone scheduled for the next 24-48 hours for best pain relief. Use ice along incisions for today to prevent swelling. Discharge Disposition: HOME SELF-CARE
== END 2023-12-19 14:24 | disposition home or self-care (01) ==
LOC: OR 07:55
PROVIDERS: ATTEND Surgery Plastic and Reconstructive Surgery
DX: R10.12 Left upper quadrant pain (principal); I11.9 Hypertensive heart disease without heart failure; Q05.9 Spina bifida, unspecified; M16.0 Bilateral primary osteoarthritis of hip; K76.0 Fatty (change of) liver, not elsewhere classified; M17.0 Bilateral primary osteoarthritis of knee; E66.01 Morbid (severe) obesity due to excess calories; Z68.42 Body mass index [BMI] 45.0-49.9, adult; Z98.84 Bariatric surgery status; Z87.11 Personal history of peptic ulcer disease; Z86.711 Personal history of pulmonary embolism; Z90.49 Acquired absence of other specified parts of digestive tract; Z85.41 Personal history of malignant neoplasm of cervix uteri; Z98.51 Tubal ligation status; Z90.721 Acquired absence of ovaries, unilateral; Z90.89 Acquired absence of other organs; Z79.899 Other long term (current) drug therapy
CPT/HCPCS: 44180; S2900; 43239; 64999